=== PATIENT | male | born 1985 | race Caucasian/White ===

== ENCOUNTER → 2016-08-31 | Outpatient (CLI) | payer BC ==
[2016-08-31 14:30] VITALS: BP 155/51; PULSE 77; RESP 16; TEMP 98.7; BMI 52.0
--- NOTE | 2016-09-23 19:33 | P.PN ---
Progress Note - Text DATE OF SERVICE: 08/31/2016 CHIEF COMPLAINT: Followup gastric bypass. HISTORY OF PRESENT ILLNESS: Esequiel Mccray is a 31-year-old gentleman who is status post Chris-en-Y gastric bypass on 04/11/2016. He is more than 4 months out from this procedure. At his height of 5 foot 8, his ideal body weight is 163 pounds. His highest weight was 440 pounds. Today he comes in weighing 341 pounds. He has lost 107 pounds. Present excess weight loss is 37%. Body mass index is reduced from 68.3 down to 52. Total BMI point reduction is 16.2. Since his last visit, he has loss another 47 pounds. He comes in today complaining of eating too much and has been vomiting. He has developed lactose intolerance and as a result, has minimized his drinking of milk. He reports low energy, he is not sleeping. Separately, he has been trying dried chicken which is not according to the bariatric diet. He has difficulty with other chicken as well. He also reports troubles with textured foods. He has already started to smoke as he was strictly forewarned against. He reports that with his weight loss, his joints are improved. Overall, he comes in with concerns as he has "fallen" off the wagon for his bariatric education. PAST MEDICAL HISTORY: 1. Morbid obesity. 2. Hyperlipidemia. 3. Bilateral lower extremity edema. 4. Hypertension. 5. Gastroesophageal reflux disease. 6. Obstructive sleep apnea. 7. Chronic iron deficiency anemia. PAST SURGICAL HISTORY: 1. Tonsillectomy. 2. Adenoidectomy. 3. Upper endoscopy. 4. Status post Chris-en-Y gastric bypass. MEDICATIONS: 1. Omeprazole. 2. Antivert. 3. Zestoretic. 4. Ventolin nebulizer inhaler. ALLERGIES: Denies. SOCIAL HISTORY: Active tobacco user. Denies any moderate alcohol use. FAMILY HISTORY: Pertinent for atrial fibrillation including stroke. Also has diabetes, pulmonary embolism and morbid obesity in his family. He has Crohn's disease in his aunt and irritable bowel syndrome in his mother. REVIEW OF SYSTEMS: CONSTITUTIONAL: Highest personal weight of 450 pounds. He is maintaining at least 107 pound weight loss. Percent excess weight loss 37%. Body mass reduced from 68.3 down to 52. BMI point reduction is 16.2. He is still 178 pounds overweight. GASTROINTESTINAL: Reports dysphagia to solid and textured foods. RESPIRATORY: Has moderate obstructive sleep apnea, including confirms generalized fatigue. HEMATOLOGIC: He has previous history of iron-deficiency anemia. No recent history of easy bruising or bleeding. Osteoarthritis moderate improvement of his joint pain, including bilateral knees and hips and lower back. HEMATOLOGIC: History of anemia. He also has history of DVTs. HEENT: No troubles with vision, hearing. Denies dysphagia. ENDOCRINE: No reports of active diabetes, thyroid disorder. CARDIOVASCULAR: No reports of recent chest pain or heart attack. He is on anti-hypertensive medication. He does have dyslipidemia. NEURO: No reports of stroke or seizure disorder. PSYCH: No reports of depression or suicidal ideation. MUSCULOSKELETAL: Reports diffuse joint pain including back pain and knee pain secondary to morbid obesity. PHYSICAL EXAM: VITAL SIGNS: 98.7, 77, 16, 155/51, 5 foot 8, 341 pounds. Body mass index of 52. ABDOMEN: Soft. No palpable incisional hernias, nontender. GENERAL: Well-developed male in no acute distress. HEENT: No sclerae icterus. Extraocular movements grossly intact. Moist buccal mucosa. NECK: Supple without lymphadenopathy. CHEST: Nonlabored respirations with equal bilateral excursions. CARDIOVASCULAR: Regular rate and rhythm. MUSCULOSKELETAL: No clubbing, cyanosis. NEURO: Cranial nerves 2 through 12 grossly within normal limits. No focal or lateralizing signs. PSYCH: Appropriate affect. Alert and oriented to person, place and time. LABS: Pending. ASSESSMENT: 1. Morbid obesity due to excess calories. 2. Body mass index reduced from 68.3 down to 52. 3. Hypertension without cardiomyopathy. 4. Tobacco use. 5. Status post massive weight loss of 107 pounds. 6. Gastroesophageal reflux disease. 7. Diaphragmatic hiatal hernia. 8. Erosive esophagitis. 9. Moderate to severe obstructive sleep apnea. 10. Hypertriglyceridemia. 11. Familial history of inflammatory bowel disease. 12. Personal history of splenomegaly. 13. Obstructive sleep apnea, poorly controlled. 14. Vitamin D deficiency. 15. Iron deficiency anemia. 16. Dyslipidemia. 17. Dietary surveillance and counseling. 18. Fatty liver disease. 19. Osteoarthritis bilateral knees, improved. 20. Osteoarthritis bilateral hips, improved. 21. Bariatric noncompliance following surgical procedure. 22. Dysphagia to textured foods. PLAN: 1. With his generalized fatigue, this may warrant evaluation for vitamin deficiencies. Recommend a bariatric metabolic panel. 2. He does have history of severe obstructive sleep apnea and he has not been compliant with care. Also recommend further evaluation with a CPAP machine. 3. I have gone over with him his troubles with textured foods and may be consistent with a stricture of his anastomosis. Recommend upper endoscopy with balloon dilatation for treatment. 4. He comes in with concerns of noncompliance with his bariartric care; however, we have encouraged him to follow up so we may help him to achieve his weight loss goals. 5. Recommend followup in approximately 3 to 4 weeks. ADDENDUM: Bariatric metabolic panel reviewed demonstrating white count elevated at 10.9. Neutrophil count elevated at 11.9. Hemoglobin was normal at 14.9. Iron was low normal at 49. Total iron-binding capacity is low at 180. Prealbumin is low at 16. LDL elevated at 111. HDL is low at 31. Vitamin A is low at 28. Thiamine is low at 34. Vitamin D is low at 20. Trace elements were within normal limits. His vitamin deficiencies include vitamin A, thiamine, including vitamin D deficiency would also affect his generalized fatigue. Recommend vitamin A supplement of at least 8000 units. Additionally, his prealbumin is low consistent with low protein and nutritional intake. Would also recommend further evaluation for CPAP treatment.
== END | disposition home or self-care (01) ==
LOC: BARWHC3 13:46
PROVIDERS: ATTEND Surgery Plastic and Reconstructive Surgery
DX: Z48.815 Encounter for surgical aftercare following surgery on the digestive system (principal); E66.01 Morbid (severe) obesity due to excess calories; E89.1 Postprocedural hypoinsulinemia; D50.8 Other iron deficiency anemias; K90.89 Other intestinal malabsorption; E44.0 Moderate protein-calorie malnutrition; E55.9 Vitamin D deficiency, unspecified; K74.1 Hepatic sclerosis; N19 Unspecified kidney failure; K50.90 Crohn's disease, unspecified, without complications; E78.5 Hyperlipidemia, unspecified; I10 Essential (primary) hypertension; K21.9 Gastro-esophageal reflux disease without esophagitis; K44.9 Diaphragmatic hernia without obstruction or gangrene; K22.10 Ulcer of esophagus without bleeding; G47.33 Obstructive sleep apnea (adult) (pediatric); E73.9 Lactose intolerance, unspecified; E78.1 Pure hyperglyceridemia; R16.1 Splenomegaly, not elsewhere classified; D50.9 Iron deficiency anemia, unspecified; Z71.3 Dietary counseling and surveillance; K76.0 Fatty (change of) liver, not elsewhere classified; R13.10 Dysphagia, unspecified; E50.9 Vitamin A deficiency, unspecified; E51.9 Thiamine deficiency, unspecified; R53.83 Other fatigue; R77.0 Abnormality of albumin; Z72.0 Tobacco use; Z98.84 Bariatric surgery status; Z68.43 Body mass index [BMI] 50.0-59.9, adult; Z91.19 Patient's noncompliance with other medical treatment and regimen; Z79.899 Other long term (current) drug therapy
CPT/HCPCS: 97803; 99211

== ENCOUNTER → 2016-09-05 | Outpatient (CLI) | payer BC ==
[2016-09-05 18:04] LABS: INR 1.2 (<1.1); Partial Thromboplastin Time 23.9 sec (22.0-30.0); Prothrombin Time 11.5 sec (9.0-12.0)
[2016-09-05 18:22] LABS: ALT 51 U/L (21-72); AST 31 U/L (17-59); Alkaline Phosphatase 83 U/L (38-126); Anion Gap 10 mmol/L; Blood Urea Nitrogen 9 mg/dL (9-20); Carbon Dioxide 26 mmol/L (22-30); Chloride 104 mmol/L (98-107); Cholesterol 164 mg/dL (<200); Glucose 96 mg/dL (74-99); HDL Cholesterol 31 mg/dL (40-60); Iron 49 ug/dL (49-181); Non-African American GFR(MDRD) >60 (>60 ml/min/1.73 sqM); Phosphorous 3.3 mg/dL (2.5-4.5); Potassium 3.8 mmol/L (3.5-5.1); Sodium 140 mmol/L (137-145); Total Bilirubin 0.7 mg/dL (0.2-1.3); Triglycerides 111 mg/dL (<150)
[2016-09-05 18:33] LABS: % Iron Saturation 27.2 % (20-50); Prealbumin 16 mg/dL (18-36); Total Iron Binding Capacity 180 ug/dL (261-462)
[2016-09-05 18:59] LABS: CH 30.3; CHCM 33.2; HDW 2.62; HGB 14.9 gm/dL (13.0-17.5); MCH 31.7 pg (25.0-35.0); MCHC 34.6 g/dL (31.0-37.0); MCV 91.7 fL (80.0-100.0); Mean Platelet Volume 8.1; RBC 4.69 m/uL (4.30-5.90); RDW 14.4 % (11.5-15.5); WBC 10.9 k/uL (3.8-10.6)
[2016-09-05 19:41] LABS: Vitamin B12 289 pg/mL (239-931)
[2016-09-06 00:49] LABS: Hemoglobin A1C 5.2 % (4.2-6.1)
[2016-09-07 18:43] LABS: Selenium 145 mcg/L (63-160)
== END | disposition home or self-care (01) ==
LOC: LABWHC1 17:24
PROVIDERS: ATTEND Surgery Plastic and Reconstructive Surgery
DX: N19 Unspecified kidney failure (principal); E89.1 Postprocedural hypoinsulinemia; K90.89 Other intestinal malabsorption; D50.8 Other iron deficiency anemias; E55.9 Vitamin D deficiency, unspecified; K50.90 Crohn's disease, unspecified, without complications; K76.9 Liver disease, unspecified; E66.01 Morbid (severe) obesity due to excess calories
CPT/HCPCS: 36415; 80053; 80061; 82306; 82525; 82607; 82728; 82746; 83036; 83540; 83550; 83735; 83970; 84100; 84134; 84255; 84425; 84443; 84590; 84630; 85027; 85610; 85730

== ENCOUNTER 2016-11-12 17:55 | Inpatient (IN) | payer BC ==
[2016-11-12] MEDS ORDERED: SODIUM CHLORIDE 0.9% 1,000 ML IV STA (18:23)
[2016-11-12] MEDS ORDERED: ONDANSETRON 4 MG/2 ML VIAL IVP STA (18:43)
[2016-11-12] MEDS ORDERED: MORPHINE SULFATE 10 MG/ML SYRINGE IVP STA (18:43)
--- NOTE | 2016-11-12 18:49 | ED ---
Abdominal Pain HPI - General Chief Complaint: Abdominal Pain Stated Complaint: chest and back discomfort Time Seen by Provider: 11/12/16 18:08 Source: patient, RN notes reviewed Mode of arrival: ambulatory Limitations: no limitations - History of Present Illness Initial Comments: Patient is a 31-year-old male presents to the emergency room for evaluation of abdominal pain and chest pain. Patient states this morning he woke up with upper epigastric pain has not subsided. Patient states that he had a hot dog earlier today that worsened and his pain has now traveled into his chest. Patient states he is having chest pain that is radiating into his back. Patient does state he had a Chris-en-Y procedure done in [place] [address] Be. Patient states he is having 8 out of 10 midsternal pain. Patient denies shortness of breath. Patient denies any personal cardiac history. Patient states also been very nauseous and vomited once earlier today. Patient denies any other surgeries on his abdomen. Patient states he was breaking out in cold sweats earlier. Patient does state she takes blood pressure medications. Patient states he hasn't taken his blood pressure medication in a few weeks. Patient denies cough or wheezing. Patient does state he smokes socially and drinks socially. Patient denies illicit drug use. Patient denies headache or dizziness. Patient denies parasthesias. Patient denies any other symptoms or complaints. - Related Data Home Medications Medication Instructions Recorded Confirmed Lisinopril-Hctz 20-12.5 mg 1 tab PO BID 07/15/15 11/12/16 [Zestoretic 20-12.5] Multivitamin with Iron 1 tab PO DAILY 11/12/16 11/12/16 [Multivitamins with Iron] Previous Rx's Medication Instructions Recorded Omeprazole 40 mg PO DAILY #90 capsule. 04/12/16 Meclizine [Antivert] 25 mg PO BID #60 tab 05/25/16 Allergies Allergy/AdvReac Type Severity Reaction Status Date / Time No Known Allergies Allergy Verified 11/12/16 18:35 Review of Systems ROS Statement: Those systems with pertinent positive or pertinent negative responses have been documented in the HPI. ROS Other: All systems not noted in ROS Statement are negative. Past Medical History Past Medical History: Asthma, GERD/Reflux, Hypertension Additional Past Medical History / Comment(s): vit d definency History of Any Multi-Drug Resistant Organisms: None Reported Past Surgical History: Adenoidectomy, Bariatric Surgery, Tonsillectomy Additional Past Surgical History / Comment(s): 04-11-16 CHRIS EN Y Past Anesthesia/Blood Transfusion Reactions: Motion Sickness Past Psychological History: No Psychological Hx Reported Smoking Status: Current some day smoker Past Alcohol Use History: Occasional Past Drug Use History: None Reported - Past Family History Father Family Medical History: AFIB, CVA/TIA, Diabetes Mellitus, Pulmonary Embolus Additional Family Medical History / Comment(s): at 57 from pulmonary embolism Mother Family Medical History: Hypertension Additional Family Medical History / Comment(s): anxiety, depression General Exam - General Exam Comments Initial Comments: Sitting in exam room, no acute distress. Limitations: no limitations General appearance: alert, in no apparent distress Head exam: Present: atraumatic, normocephalic, normal inspection Eye exam: Present: normal appearance ENT exam: Present: normal exam Neck exam: Present: normal inspection Respiratory exam: Present: normal lung sounds bilaterally. Absent: respiratory distress Cardiovascular Exam: Present: regular rate, normal rhythm, normal heart sounds GI/Abdominal exam: Present: soft, tenderness (upper mid-epigastric), normal bowel sounds. Absent: distended, guarding, rebound, rigid Extremities exam: Present: normal inspection Back exam: Present: normal inspection Neurological exam: Present: alert, oriented X3, CN II-XII intact, normal gait Psychiatric exam: Present: normal affect, normal mood Skin exam: Present: warm, dry, intact, normal color. Absent: rash Course Vital Signs 11/12/16 11/12/16 11/12/16 18:03 18:39 19:03 Temperature 98.1 F 98.0 F Pulse Rate 75 74 62 Respiratory 20 16 16 Rate Blood Pressure 185/92 150/79 149/76 O2 Sat by Pulse 98 98 96 Oximetry 11/12/16 11/12/16 19:45 21:15 Temperature Pulse Rate 48 L 50 L Respiratory 18 16 Rate Blood Pressure 120/56 123/59 O2 Sat by Pulse 97 99 Oximetry Medical Decision Making - Medical Decision Making Patient is a 31-year-old male presents emergency room for evaluation of epigastric pain and chest pain. All labs including cardiac enzymes within normal limits. CT abdomen/pelvis ordered and no acute findings noted. Patient is still complaining of chest pain. Patient is noted to be bradycardic. Heart rate ranging around 47-50 bpm. This most likely from the morphine given to patient. Because of the patient's heart rate and continuing chest pain will keep patient here for observation to reevaluate cardiac enzymes. Case discussed with Dr. Fajardo. Case also discussed with Michela Miller NP who agreed to admit patient for Dr. Rowe. - Lab Data Result diagrams: 11/12/16 18:37 11/12/16 18:37 Lab Results 11/12/16 11/12/16 11/12/16 Range/Units 18:37 18:37 18:37 WBC 10.1 (3.8-10.6) k/uL RBC 5.09 (4.30-5.90) m/uL Hgb 15.9 (13.0-17.5) gm/dL Hct 47.6 (39.0-53.0) % MCV 93.6 (80.0-100.0) fL MCH 31.3 (25.0-35.0) pg MCHC 33.4 (31.0-37.0) g/dL RDW 13.5 (11.5-15.5) % Plt Count 261 (150-450) k/uL Neutrophils % 61 % Lymphocytes % 26 % Monocytes % 5 % Eosinophils % 7 % Basophils % 1 % Neutrophils # 6.1 (1.3-7.7) k/uL Lymphocytes # 2.7 (1.0-4.8) k/uL Monocytes # 0.5 (0-1.0) k/uL Eosinophils # 0.7 (0-0.7) k/uL Basophils # 0.1 (0-0.2) k/uL PT (9.0-12.0) sec INR (<1.1) APTT (22.0-30.0) sec Sodium 144 (137-145) mmol/L Potassium 4.1 (3.5-5.1) mmol/L Chloride 107 (98-107) mmol/L Carbon Dioxide 25 (22-30) mmol/L Anion Gap 12 mmol/L BUN 10 (9-20) mg/dL Creatinine 0.68 (0.66-1.25) mg/dL Est GFR (MDRD) Af Amer >60 (>60 ml/min/1.73 sqM) Est GFR (MDRD) Non-Af >60 (>60 ml/min/1.73 sqM) Glucose 83 (74-99) mg/dL Calcium 9.5 (8.4-10.2) mg/dL Magnesium 2.1 (1.6-2.3) mg/dL Total Bilirubin 0.7 (0.2-1.3) mg/dL AST 22 (17-59) U/L ALT 45 (21-72) U/L Alkaline Phosphatase 87 (38-126) U/L Total Creatine Kinase 85 (55-170) U/L CK-MB (CK-2) 0.6 (0.0-2.4) ng/mL CK-MB (CK-2) Rel Index 0.7 Troponin I <0.012 (0.000-0.034) ng/mL Total Protein 7.0 (6.3-8.2) g/dL Albumin 4.1 (3.5-5.0) g/dL Amylase 35 (30-110) U/L Lipase 48 (23-300) U/L Urine Color Urine Appearance (Clear) Urine pH (5.0-8.0) Ur Specific [place] (1.001-1.035) Urine Protein (Negative) Urine Glucose (UA) (Negative) Urine Ketones (Negative) Urine Blood (Negative) Urine Nitrite (Negative) Urine Bilirubin (Negative) Urine Urobilinogen (<2.0) mg/dL Ur Leukocyte Esterase (Negative) 11/12/16 11/12/16 Range/Units 18:37 18:37 WBC (3.8-10.6) k/uL RBC (4.30-5.90) m/uL Hgb (13.0-17.5) gm/dL Hct (39.0-53.0) % MCV (80.0-100.0) fL MCH (25.0-35.0) pg MCHC (31.0-37.0) g/dL RDW (11.5-15.5) % Plt Count (150-450) k/uL Neutrophils % % Lymphocytes % % Monocytes % % Eosinophils % % Basophils % % Neutrophils # (1.3-7.7) k/uL Lymphocytes # (1.0-4.8) k/uL Monocytes # (0-1.0) k/uL Eosinophils # (0-0.7) k/uL Basophils # (0-0.2) k/uL PT 11.3 (9.0-12.0) sec INR 1.1 (<1.1) APTT 24.1 (22.0-30.0) sec Sodium (137-145) mmol/L Potassium (3.5-5.1) mmol/L Chloride (98-107) mmol/L Carbon Dioxide (22-30) mmol/L Anion Gap mmol/L BUN (9-20) mg/dL Creatinine (0.66-1.25) mg/dL Est GFR (MDRD) Af Amer (>60 ml/min/1.73 sqM) Est GFR (MDRD) Non-Af (>60 ml/min/1.73 sqM) Glucose (74-99) mg/dL Calcium (8.4-10.2) mg/dL Magnesium (1.6-2.3) mg/dL Total Bilirubin (0.2-1.3) mg/dL AST (17-59) U/L ALT (21-72) U/L Alkaline Phosphatase (38-126) U/L Total Creatine Kinase (55-170) U/L CK-MB (CK-2) (0.0-2.4) ng/mL CK-MB (CK-2) Rel Index Troponin I (0.000-0.034) ng/mL Total Protein (6.3-8.2) g/dL Albumin (3.5-5.0) g/dL Amylase (30-110) U/L Lipase (23-300) U/L Urine Color Yellow Urine Appearance Clear (Clear) Urine pH 5.5 (5.0-8.0) Ur Specific [place] 1.018 (1.001-1.035) Urine Protein Negative (Negative) Urine Glucose (UA) Negative (Negative) Urine Ketones Negative (Negative) Urine Blood Negative (Negative) Urine Nitrite Negative (Negative) Urine Bilirubin Negative (Negative) Urine Urobilinogen 4.0 (<2.0) mg/dL Ur Leukocyte Esterase Negative (Negative) 11/12/16 21:43 Normal sinus rhythm, ventricular rate 65 bpm, WA interval 168 ms, QRS duration 110 ms, QT/QTC 392/407 ms - Radiology Data Radiology results: report reviewed, image reviewed Disposition Clinical Impression: Atypical chest pain, Bradycardia Disposition: ADMITTED IP TO THIS [facility] Condition: Stable Decision Date: 11/12/16
[2016-11-12 18:52] LABS: Basophils # (A) 0.1 k/uL (0-0.2); Basophils % (A) 1 %; CH 31.7; Eosinophils # (A) 0.7 k/uL (0-0.7); Eosinophils % (A) 7 %; HCT 47.6 % (39.0-53.0); HDW 2.46; HGB 15.9 gm/dL (13.0-17.5); Luc # (Auto) 0.13; Luc % (Auto) 1; Lymphocytes # (A) 2.7 k/uL (1.0-4.8); Lymphocytes % (A) 26 %; MCH 31.3 pg (25.0-35.0); MCHC 33.4 g/dL (31.0-37.0); MCV 93.6 fL (80.0-100.0); Mean Platelet Volume 8.5; Monocytes # (A) 0.5 k/uL (0-1.0); Monocytes % (A) 5 %; Neutrophils # (A) 6.1 k/uL (1.3-7.7); Neutrophils % (A) 61 %; RBC 5.09 m/uL (4.30-5.90); RDW 13.5 % (11.5-15.5); WBC 10.1 k/uL (3.8-10.6); WBC (Perox) 10.01
[2016-11-12 18:57] LABS: Appearance,Urine Clear (Clear); Bilirubin,Urine Negative (Negative); Glucose,Urine (UA) Negative (Negative); Ketones,Urine Negative (Negative); Leukocyte Esterase,Urine Negative (Negative); Nitrite,Urine Negative (Negative); PH, Urine 5.5 (5.0-8.0); Protein,Urine Negative (Negative); Specific Gravity,Urine 1.018 (1.001-1.035); UA Billing (MACRO vs. MICRO) CHEM
[2016-11-12 19:05] LABS: ALT 45 U/L (21-72); AST 22 U/L (17-59); Alkaline Phosphatase 87 U/L (38-126); Amylase 35 U/L (30-110); Anion Gap 12 mmol/L; Blood Urea Nitrogen 10 mg/dL (9-20); Calcium 9.5 mg/dL (8.4-10.2); Carbon Dioxide 25 mmol/L (22-30); Chloride 107 mmol/L (98-107); Glucose 83 mg/dL (74-99); Magnesium 2.1 mg/dL (1.6-2.3); Non-African American GFR(MDRD) >60 (>60 ml/min/1.73 sqM); Potassium 4.1 mmol/L (3.5-5.1); Sodium 144 mmol/L (137-145); Total Bilirubin 0.7 mg/dL (0.2-1.3)
[2016-11-12 19:13] LABS: Creatine Kinase 85 U/L (55-170)
[2016-11-12 19:14] LABS: INR 1.1 (<1.1); Partial Thromboplastin Time 24.1 sec (22.0-30.0); Prothrombin Time 11.3 sec (9.0-12.0)
[2016-11-12 19:26] LABS: Creatine Kinase MB 0.6 ng/mL (0.0-2.4); Troponin I <0.012 ng/mL (0.000-0.034)
--- NOTE | 2016-11-12 19:27 | XR ---
EXAMINATION TYPE: XR abdomen acute w cxr DATE OF EXAM: 11/12/2016 COMPARISON: 02/23/2014 HISTORY: Abdominal pain TECHNIQUE: 5 views FINDINGS: Lungs are clear. There is no heart failure. Bowel gas pattern is normal. There is no sign of intestin al obstruction or pneumoperitoneum. Fecal pattern is normal. There is no sign of a mass. There are no pathologic calcifications over the kidneys. IMPRESSION: Normal chest. Nonacute abdomen. Previous left side abdominal surgery noted.
[2016-11-12] MEDS ORDERED: RX INFO: IV CONTRAST WAS GIVEN 1 EACH MISC MISCELLANE PRN (19:48)
[2016-11-12] MEDS ORDERED: FAMOTIDINE 20 MG/2 ML VIAL IV STA (19:51)
--- NOTE | 2016-11-12 20:31 | CT ---
EXAMINATION TYPE: CT abdomen pelvis w con DATE OF EXAM: 11/12/2016 COMPARISON: 07/16/2015 HISTORY: Patient complains of epigastric pain. Patient had rouen-y surgery in March 2016. CT DLP: 2265.3 mGycm Automated exposure control for dose reduction was used. TECHNIQUE: Helical acquisition of images was performed from the lung bases through the pelvis. CONTRAST: Performed without Oral Contrast and with IV Contrast, patient injected with 100 mL of Omnipaque 300. FINDINGS: Lung bases are clear. There is no pleural effusion. Liver shows no focal defect. Bile ducts are not d ilated. Gallbladder appears normal. Spleen and pancreas appear normal. There are surgical clips at th e gastric fundus. There is no adrenal mass. Kidneys show satisfactory contrast opacification. There is no hydronephrosi s. There is no ascites. Appendix appears normal. I see no intestinal wall thickening. Bladder distend s smoothly. There is no sign of a pelvic mass. I see no bony destructive process. IMPRESSION: THERE IS GASTRIC AND INTESTINAL SURGERY NOTED THAT IS NEW COMPARED TO OLD CT SCAN. NO SIGN OF ACUTE A BDOMEN AND PELVIS.
[2016-11-12] MEDS ORDERED: NALOXONE 0.4 MG/ML 1 ML VIAL IV PRN (20:58)
[2016-11-12] MEDS ORDERED: HYDROmorphone 1 MG/ML 1 ML SYRINGE IV PRN (20:58)
[2016-11-12] MEDS: SODIUM CHLORIDE 0.9% 1,000 ML IV SCH (21:34)
[2016-11-12 22:39] VITALS: BMI 48.2
[2016-11-12] MEDS ORDERED: HYDROmorphone 1 MG/ML 1 ML SYRINGE IVP PRN (23:37)
[2016-11-12] MEDS: ACETAMINOPHEN TAB 500 MG TAB PO PRN (23:52)
[2016-11-13 00:39] LABS: Creatine Kinase 60 U/L (55-170)
[2016-11-13 00:52] LABS: Creatine Kinase MB 0.5 ng/mL (0.0-2.4); Troponin I <0.012 ng/mL (0.000-0.034)
[2016-11-13 06:39] LABS: Basophils # (A) 0.1 k/uL (0-0.2); Basophils % (A) 1 %; CH 31.6; CHCM 34.1; Eosinophils # (A) 0.6 k/uL (0-0.7); Eosinophils % (A) 7 %; HCT 40.9 % (39.0-53.0); HGB 13.9 gm/dL (13.0-17.5); Luc # (Auto) 0.17; Luc % (Auto) 2; Lymphocytes # (A) 2.8 k/uL (1.0-4.8); Lymphocytes % (A) 33 %; MCH 31.7 pg (25.0-35.0); MCV 93.2 fL (80.0-100.0); Mean Platelet Volume 8.5; Monocytes # (A) 0.5 k/uL (0-1.0); Monocytes % (A) 6 %; Neutrophils # (A) 4.3 k/uL (1.3-7.7); Neutrophils % (A) 52 %; RBC 4.38 m/uL (4.30-5.90); RDW 13.4 % (11.5-15.5); WBC 8.3 k/uL (3.8-10.6); WBC (Perox) 8.42
[2016-11-13] MEDS: SODIUM CHLORIDE 0.9% 1,000 ML IV SCH ×2 (06:46→20:07)
[2016-11-13 07:00] LABS: ALT 41 U/L (21-72); AST 21 U/L (17-59); Alkaline Phosphatase 72 U/L (38-126); Anion Gap 8 mmol/L; Blood Urea Nitrogen 10 mg/dL (9-20); Calcium 9.2 mg/dL (8.4-10.2); Carbon Dioxide 22 mmol/L (22-30); Chloride 109 mmol/L (98-107); Glucose 83 mg/dL (74-99); Non-African American GFR(MDRD) >60 (>60 ml/min/1.73 sqM); Sodium 139 mmol/L (137-145); Total Bilirubin 0.8 mg/dL (0.2-1.3); Total Protein 5.9 g/dL (6.3-8.2)
[2016-11-13 07:03] LABS: Creatine Kinase 49 U/L (55-170)
[2016-11-13 07:15] LABS: Creatine Kinase MB 0.4 ng/mL (0.0-2.4); Troponin I <0.012 ng/mL (0.000-0.034)
[2016-11-13] MEDS ORDERED: NON-FORMULARY DRUG (Omeprazole [Omeprazole] 40 MG) PO SCH (09:15)
[2016-11-13] MEDS: ENOXAPARIN 40 MG/0.4 ML SYRINGE SQ SCH (09:31)
[2016-11-13] MEDS: LISINOPRIL-HCTZ 20-12.5 MG 1 EACH TAB PO SCH ×2 (09:31→20:07)
[2016-11-13] MEDS: MECLIZINE 25 MG TAB PO SCH ×2 (09:31→20:07)
[2016-11-13] MEDS: PANTOPRAZOLE 40 MG/10 ML VIAL IV SCH (09:32)
[2016-11-13] MEDS ORDERED: RX INFO: IV CONTRAST WAS GIVEN 1 EACH MISC MISCELLANE PRN (09:54)
--- NOTE | 2016-11-13 10:47 | P.PN ---
Progress Note - Text Patient seen and evaluated. Atypical chest pain may also be secondary to gallstones. Recommend right upper quadrant abdominal ultrasound.
[2016-11-13] MEDS: ACETAMINOPHEN TAB 500 MG TAB PO PRN (12:16)
--- NOTE | 2016-11-13 12:45 | US ---
EXAMINATION TYPE: US gallbladder DATE OF EXAM: 11/13/2016 COMPARISON: NONE CLINICAL HISTORY: gallstones. RUQ pain EXAM MEASUREMENTS: Liver Length: 22.4 cm Gallbladder Wall: 0.3 cm CBD: 0.3m Right Kidney: 12.2 x 4.8 x 5.4 Limited due to bowel gas and body habitus. Pancreas: wnl tail of pancreas obscured by bowel gas. Liver: Increased attenuation Gallbladder: Multiple small echogenic focus noted near neck Evidence for sonographic Negrete's sign: No, but pt stated he had just received pain medication CBD: wnl Right Kidney: wnl IMPRESSION: 1. Cholelithiasis. Early cholecystitis is not excluded.
--- NOTE | 2016-11-13 15:01 | CT ---
EXAMINATION TYPE: CT angio thoracic/abd aorta DATE OF EXAM: 11/13/2016 12:05 PM COMPARISON: NONE HISTORY: Severe back pain, possible dissection CT DLP: 2632.2 mGycm Automated exposure control for dose reduction was used. TECHNIQUE: Performed without and with IV Contrast, patient injected with 100 mL of Omnipaque 350. . FINDINGS: Lung windows appear clear. The ascending thoracic aorta at the main pulmonary artery is 3.1 cm patent main pulmonary bifurcation is 2.8 cm. Following intravenous administration of contrast no aortic dissection is evident. No aneurysmal dilat ation is evident. There is tract through the abdominal course into the iliac vessels which appear nor mal. Iliac internal and external vessels appear normal. Common femoral arteries appear normal. Inferior vena cava without contrast appears unremarkable. Mediastinum appears normal. Fatty infiltration is within the liver. The spleen. This phase of contrast is normal. Kidneys appear normal without masses cysts or hydronephrosis. Postsurgical changes within the bowel are evident. The adrenal glands are normal. Pancreas is unremarkable. Gallbladder may contain contrast. The appendix is not identified. Urinary bladder is normal. IMPRESSION: 1. NO CT EVIDENCE OF ANEURYSM OR DISSECTION THROUGH THE THORACIC OR ABDOMINAL AORTA. ILIAC VESSELS AN D COMMON FEMORAL ARTERIES APPEAR NORMAL.
[2016-11-13] MEDS ORDERED: ceFAZolin 3 GM in SODIUM CHLORIDE 0.9% 100 ML IVPB ONE (15:30)
[2016-11-13] MEDS ORDERED: ACETAMINOPHEN IV (For NPO) 1,000 MG in EMPTY BAG 1 BAG IVPB ONE (16:30)
--- NOTE | 2016-11-13 16:34 | CONS ---
DATE OF CONSULTATION: ATTENDING: Dr. Garrison Mr. 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 He had severe discomfort between the shoulder blade. Because of persistent symptoms he came into the emergency room and subsequently admitted. He was given pain medication and had sinus bradycardia. Patient is reasonably active physically, has lost weight since undergoing gastric bypass and has been more active. His breathing is stable when he is active. He has no significant dizziness or palpitation. He has some peripheral edema at times. No clear PND. No orthopnea. His coronary risk factors are remarkable for smoking about 1/2 pack a day as well history of hypertension. He is nondiabetic. His medications at home included: Lisinopril HCT 20/12.5 mg twice a day, Antivert, multivitamin and omeprazole. REVIEW OF SYSTEMS: RESPIRATORY SYSTEM: He has no recent wheezing. No cough. GI: He has occasional nausea and abdominal discomfort, but otherwise he is feeling well. No diarrhea. SYSTEM: No dysuria or hematuria. NERVOUS SYSTEM: No stroke or seizure. PHYSICAL EXAMINATION: He is a 31-year-old male, alert, oriented in apparent distress. Blood pressure 118/60 with a heart rate in the 40s. HEAD: Normocephalic. EYES: Sclerae anicteric. NECK: Good upstroke. No bruit. No jugular venous distention. LUNGS: Clear to auscultation. HEART: Regular rate and rhythm. S1, S2, no S3, no S4, no murmur or rub. ABDOMEN: Soft, obese, positive bowel sounds. No organomegaly. EXTREMITIES: Chronic discoloration. No significant edema. Lab data revealed BUN and creatinine of 10 and 0.6. Troponin less than 0.012 for 3 samples. AST of 21. Hemoglobin 13.9, white blood cell of 8.3. EKG revealed a sinus mechanism with a rate of 65 with no acute changes. Subsequent EKG revealed sinus bradycardia. Abdominal and pelvis CT revealed no evidence of acute abdomen. IMPRESSION: 1. Chest and back discomfort of unclear etiology. There is no evidence to suggest acute coronary syndrome at this time. The back discomfort is persistent. Patient has a history of hypertension, although does not have any clear evidence to suspected dissection, but because of persistent symptoms will obtain a CT scan of the chest. 2. History of hypertension. 3. Status post gastric bypass surgery with weight loss. 4. Chronic tobacco use. RECOMMENDATIONS: Will obtain a CT scan of the chest with contrast to rule out day aneurysmal dilatation or dissection. In the meantime, will continue present therapy. Will obtain echocardiogram with Doppler and depending his progress, further recommendation will be made. Thank you for this consult. We will follow with you.
--- NOTE | 2016-11-13 17:28 | HP ---
DATE OF ADMISSION: 11/12/2016 PRESENTING COMPLAINT: Epigastric pain. HISTORY OF PRESENTING COMPLAINT: This is a very pleasant 31-year-old patient of Dr. Garrison who had a Chris-en-Y gastric bypass surgery in [address] Be. Patient had lost about 142 pounds. Chronic stable medical conditions include asthma, GERD, hypertension. Patient yesterday had a couple bites of hot dog and developed severe epigastric pain then he developed a pressure across the back of the chest going across the arms and have a bit of a cold sweat. No dizziness, no lightheadedness. Decided to come in for the same. Patient known to be pretty active. No cardiac history as such. No nausea, vomiting. Patient does get some heartburn sometimes. REVIEW OF SYSTEMS: CONSTITUTIONAL: None. HEENT: None. RESPIRATORY: None. CARDIOVASCULAR: None. GASTROINTESTINAL: Heartburn. GENITOURINARY: None. MUSCULOSKELETAL: None. DERMATOLOGIC: None. HEMATOLOGIC: None. LYMPHATIC: None. PSYCHIATRY: None. NEUROLOGICAL: None. PAST HISTORY: Asthma, GERD, hypertension. PAST SURGICAL HISTORY: Adenoidectomy, gastric Chris-en-Y in March 2016. SOCIAL HISTORY: Patient smokes 1/2 pack a day. Works for [employer], . FAMILY HISTORY: Father and 2 brothers all in their 50s from heart disease HOME MEDICATIONS: 1. Omeprazole 40 mg a day. 2. Multivitamin 1 tablet a day. 3. Antivert 05/22 p.o. b.i.d. 4. Zestoretic 17/05.5, 1 tablet b.i.d. ALLERGIES: None. PHYSICAL EXAMINATION: VITAL SIGNS ON PRESENTATION: Temperature 98.1, pulse 75, respiration 20, blood pressure 157/99, pulse ox 98% on room air. GENERAL APPEARANCE: Well built, BMI of 48.1, sitting up, not in distress. EYES: Pupils equal. Conjunctivae normal. HEENT: External appearance of nose and ears normal. Oral cavity normal. NECK: JVD not raised. Mass not palpable. RESPIRATORY: Effort normal. Lungs are clear. CARDIOVASCULAR: First and second sounds normal. No edema. ABDOMEN: Soft, nontender palpable. LYMPHATIC: No lymph node palpable in the neck or axillae. PSYCHIATRY: Alert and oriented x3. Mood and affect normal. NEUROLOGICAL: Pupils equal. Cranial nerves grossly intact. Power and sensation grossly intact. INVESTIGATIONS: White count 9.1, hemoglobin 15.9. Potassium 4.1. BUN and creatinine are normal. Acute abdominal series nil acute reported. CT scan of the abdomen and pelvis nil acute. Ultrasound of the gallbladder, cholelithiasis. ASSESSMENT: 1. Acute epigastric pain followed by a pressure across the chest going over the back, cold sweats. this well may be esophageal spasm. Patient is found to have gallstones on the ultrasound but I am not sure if these symptoms could be from gallstone itself. Patient's liver function tests have been normal. The troponin has been normal. Amylase, lipase normal. 2. Morbid obesity, body mass index of 48.1. 3. Chris-en-Y gastric bypass surgery in March 2016. Patient lost 142 pounds since then. 4. Intermittent asthma, stable. 5. Gastroesophageal reflux disease. 6. Essential hypertension. PLAN: From a cardiac standpoint, this does not sound to be very cardiac, but given a strong family history of father and 2 uncles dying, patient needs an outpatient stress test. Dr. Be from general surgery is evaluating the patient. Care was discussed with the patient and his mother and . Care was discussed. Will await further input from general surgery and go from there.
--- NOTE | 2016-11-13 18:20 | P.GSCN ---
History of Present Illness Consult date: 11/13/16 Reason for Consult: Abdominal pain Requesting physician: Sebastián Rowe History of present illness: The patient is a 31-year-old gentleman well known to me who comes in after developing atypical chest pain. He reports the pain started primarily along the epigastrium and radiated to the chest after eating a hot dog yesterday. He reports intermittent dysphagia especially to solid foods. Since admission, he reports bradycardia. He reports intermittent indigestion. He has a history of gastric bypass where his highest weight was 448 pounds. Today he comes in 310 pounds. He has lost 138 pounds. Secondary to his history of epigastric abdominal pain and prior history of gastric bypass, Gen. surgery's consulted. Review of Systems CONSTITUTIONAL: Denies any fever or chills. Intentional weight loss of 138 pounds in 8 months. HEENT: Denies any trouble with vision, hearing or nosebleeds. Has difficulty swallowing. LYMPHATIC: The patient denies any lumps and bumps around the neck. ENDOCRINE: Denies any thyroid disorders. Previous blood sugar glucose intolerance resolved. RESPIRATORY: Denies pneumonia. Denies any troubles with breathing or dyspnea on exertion. Past history of sleep apnea. CARDIOVASCULAR: Has chest pain and slow heart rate. No heart attacks. GASTROINTESTINAL: Has heart burn. No constipation or bright red blood per rectum. GENITOURINARY: Denies any blood in urine or increased urinary frequency. MUSCULOSKELETAL: Has back pain, stiffness, joint arthritis. NEUROLOGIC: Denies any numbness or tingling along the distal extremities. No seizure disorders or headaches. PSYCHIATRIC: Denies depression or suidical ideation. HEMATOLOGIC: Denies any abnormal bleeding or bruising. Past Medical History Past Medical History: Asthma, GERD/Reflux, Hypertension Additional Past Medical History / Comment(s): vit d definency History of Any Multi-Drug Resistant Organisms: None Reported Past Surgical History: Adenoidectomy, Bariatric Surgery, Tonsillectomy Additional Past Surgical History / Comment(s): 04-11-16 TRISTIAN EN Y Past Anesthesia/Blood Transfusion Reactions: Motion Sickness Past Psychological History: No Psychological Hx Reported Smoking Status: Current some day smoker Past Alcohol Use History: Occasional Past Drug Use History: None Reported - Past Family History Father Family Medical History: AFIB, CVA/TIA, Diabetes Mellitus, Pulmonary Embolus Additional Family Medical History / Comment(s): at 57 from pulmonary embolism Mother Family Medical History: Hypertension Additional Family Medical History / Comment(s): anxiety, depression Medications and Allergies Home Medications Medication Instructions Recorded Confirmed Type Lisinopril-Hctz 20-12.5 mg 1 tab PO BID 07/15/15 11/12/16 History [Zestoretic 20-12.5] Multivitamin with Iron 1 tab PO DAILY 11/12/16 11/12/16 History [Multivitamins with Iron] Allergies Allergy/AdvReac Type Severity Reaction Status Date / Time No Known Allergies Allergy Verified 11/12/16 18:35 Surgical - Exam Vital Signs Temp Pulse Resp BP Pulse Ox 98.1 F 75 20 185/92 98 11/12/16 18:03 11/12/16 18:03 11/12/16 18:03 11/12/16 18:03 11/12/16 18:03 GENERAL: Well developed and in no acute distress. Pleasant. HEENT: No sclera icterus. Extraocular movements grossly intact. Moist buccal mucosa. Head is atraumatic, normocephalic. Hears conversational speech. No nasal drainage. NECK: Supple without lymphadenopathy. No JV distention. CHEST: Non-labored respirations and equal bilateral excursions. CARDIOVASCULAR: Bradycardic. Palpable 2+ radial pulses. ABDOMEN: Soft. Nondistended. Tender along the epigastrium and right upper quadrant with deep palpation. No peritonitis. MUSCULOSKELETAL: No clubbing, cyanosis or edema. NEUROLOGIC: No focal or lateralizing signs. PSYCH: Appropriate affect. Alert and oriented to person, place and time. Results - Labs 11/13/16 05:57 11/13/16 05:57 Abnormal Lab Results - Last 24 Hours (Table) 11/13/16 11/13/16 Range/Units 05:57 05:57 Chloride 109 H (98-107) mmol/L Total Creatine Kinase 49 L (55-170) U/L Total Protein 5.9 L (6.3-8.2) g/dL Albumin 3.3 L (3.5-5.0) g/dL Diabetes panel 11/12/16 11/13/16 Range/Units 18:37 05:57 Sodium 144 139 (137-145) mmol/L Potassium 4.1 4.0 (3.5-5.1) mmol/L Chloride 107 109 H (98-107) mmol/L Carbon Dioxide 25 22 (22-30) mmol/L BUN 10 10 (9-20) mg/dL Creatinine 0.68 0.66 (0.66-1.25) mg/dL Glucose 83 83 (74-99) mg/dL Calcium 9.5 9.2 (8.4-10.2) mg/dL AST 22 21 (17-59) U/L ALT 45 41 (21-72) U/L Alkaline Phosphatase 87 72 (38-126) U/L Total Protein 7.0 5.9 L (6.3-8.2) g/dL Albumin 4.1 3.3 L (3.5-5.0) g/dL Calcium panel 11/12/16 11/13/16 Range/Units 18:37 05:57 Calcium 9.5 9.2 (8.4-10.2) mg/dL Albumin 4.1 3.3 L (3.5-5.0) g/dL Pituitary panel 11/12/16 11/13/16 Range/Units 18:37 05:57 Sodium 144 139 (137-145) mmol/L Potassium 4.1 4.0 (3.5-5.1) mmol/L Chloride 107 109 H (98-107) mmol/L Carbon Dioxide 25 22 (22-30) mmol/L BUN 10 10 (9-20) mg/dL Creatinine 0.68 0.66 (0.66-1.25) mg/dL Glucose 83 83 (74-99) mg/dL Calcium 9.5 9.2 (8.4-10.2) mg/dL Adrenal panel 11/12/16 11/13/16 Range/Units 18:37 05:57 Sodium 144 139 (137-145) mmol/L Potassium 4.1 4.0 (3.5-5.1) mmol/L Chloride 107 109 H (98-107) mmol/L Carbon Dioxide 25 22 (22-30) mmol/L BUN 10 10 (9-20) mg/dL Creatinine 0.68 0.66 (0.66-1.25) mg/dL Glucose 83 83 (74-99) mg/dL Calcium 9.5 9.2 (8.4-10.2) mg/dL Total Bilirubin 0.7 0.8 (0.2-1.3) mg/dL AST 22 21 (17-59) U/L ALT 45 41 (21-72) U/L Alkaline Phosphatase 87 72 (38-126) U/L Total Protein 7.0 5.9 L (6.3-8.2) g/dL Albumin 4.1 3.3 L (3.5-5.0) g/dL - Imaging CT scan - abdomen: image reviewed CT scan - pelvis: image reviewed (No free air identified.) US - abdomen: image reviewed (Multiple gallstones with thickened gallbladder wall.) Assessment and Plan (1) Dysphagia Status: Acute (2) Multiple gallstones Status: Acute (3) Cholecystitis Status: Acute (4) Atypical chest pain Status: Acute (5) Bradycardia Status: Acute (6) Morbid obesity Status: Acute (7) Hypertension Status: Chronic (8) Vitamin D deficiency Status: Acute (9) Vitamin A deficiency Status: Acute (10) Thiamine deficiency Status: Acute Plan: 1. With his atypical chest pain, other causes include gallstones. He is at high risk with the recent metabolic surgery as well as massive weight loss in a short timeframe. I have ordered his ultrasound of his gallbladder which is now consistent with gallstones. 2. CT of the abdomen pelvis also reviewed demonstrating no overt findings of pneumoperitoneum small bowel obstruction. 3. Follow bariatric diet likely cardiac consistent and no straws is advised. Recommend low-fat diet. 4. For his bradycardia, management per cardiology. 5. He has a personal history of vitamin A including vitamin D and thiamine deficiency. Recommend replacement while inpatient. 6. I have discussed with him surgical intervention with a cholecystectomy preferably robotic-assisted approach. Time with Patient: Greater than 30
[2016-11-13] MEDS: ONDANSETRON 4 MG/2 ML VIAL IVP PRN (20:13)
[2016-11-14] MEDS: SODIUM CHLORIDE 0.9% 1,000 ML IV SCH ×3 (06:34→12:43)
[2016-11-14 06:56] LABS: Anion Gap 7 mmol/L; Blood Urea Nitrogen 8 mg/dL (9-20); Calcium 9.1 mg/dL (8.4-10.2); Carbon Dioxide 27 mmol/L (22-30); Chloride 109 mmol/L (98-107); Glucose 82 mg/dL (74-99); Non-African American GFR(MDRD) >60 (>60 ml/min/1.73 sqM); Potassium 4.5 mmol/L (3.5-5.1); Sodium 143 mmol/L (137-145)
[2016-11-14] MEDS: PANTOPRAZOLE 40 MG/10 ML VIAL IV SCH (07:40)
[2016-11-14] MEDS: LISINOPRIL-HCTZ 20-12.5 MG 1 EACH TAB PO SCH ×2 (07:41→20:44)
[2016-11-14] MEDS: MECLIZINE 25 MG TAB PO SCH ×2 (07:41→20:44)
[2016-11-14] MEDS: ENOXAPARIN 40 MG/0.4 ML SYRINGE SQ SCH (07:41)
[2016-11-14] MEDS: ACETAMINOPHEN TAB 500 MG TAB PO PRN (07:52)
[2016-11-14] MEDS: ONDANSETRON 4 MG/2 ML VIAL IVP PRN ×2 (07:52→16:45)
--- NOTE | 2016-11-14 10:34 | ECHOF ---
Referral Reason: MEASUREMENTS -------- HEIGHT: 170.2 cm WEIGHT: 143.8 kg BP: 115/59 RVIDd: 3.7 cm (< 3.3) IVSd: 1.2 cm (0.6 - 1.1) LVIDd: 5.1 cm (3.9 - 5.3) LVPWd: 1.0 cm (0.6 - 1.1) IVSs: 1.7 cm LVIDs: 3.3 cm LVPWs: 1.7 cm LA Diam: 3.5 cm (2.7 - 3.8) LAESV Index (A-L): 37.39 ml/m Ao Diam: 3.7 cm (2.0 - 3.7) AV Cusp: 2.4 cm (1.5 - 2.6) MV EXCURSION: 16.312 mm (> 18.000) MV EF SLOPE: 95 mm/s (70 - 150) EPSS: 0.5 cm MV E Cody: 1.29 m/s MV DecT: 189 ms MV A Cody: 0.52 m/s MV E/A Ratio: 2.49 RAP: 5.00 mmHg RVSP: 18.36 mmHg FINDINGS -------- Resting bradycardia (HR<60bpm). This was a technically good study. The left ventricular size is normal. There is borderline concentric left ventricular hypertrophy. Overall left ventricular systolic function is normal with, an EF between 55 - 60 %. The right ventricle is mild to moderately enlarged. LA is moderately dilated 34-39 ml/m2 The right atrium is normal in size. The aortic valve is trileaflet and appears structurally normal. The mitral valve is normal. Mild tricuspid regurgitation present. Right ventricular systolic pressure is normal at < 35 mmHg. Trace/mild (physiologic) pulmonic regurgitation. The aortic root is dilated measuring 3.7cm. The inferior vena cava is mildly dilated. The pericardium is normal. CONCLUSIONS -------- 1. Resting bradycardia (HR<60bpm). 2. The mitral valve is normal. 3. Mild tricuspid regurgitation present. 4. Right ventricular systolic pressure is normal at < 35 mmHg. 5. Trace/mild (physiologic) pulmonic regurgitation. 6. The aortic root is dilated measuring 3.7cm. 7. The inferior vena cava is mildly dilated. 8. The pericardium is normal. 9. This was a technically good study. 10. The left ventricular size is normal. 11. There is borderline concentric left ventricular hypertrophy. 12. Overall left ventricular systolic function is normal with, an EF between 55 - 60 %. 13. The right ventricle is mild to moderately enlarged. 14. LA is moderately dilated 34-39 ml/m2 15. The right atrium is normal in size. 16. The aortic valve is trileaflet and appears structurally normal. MOLD WASHER: Rosa Maria Shah RDCS
--- NOTE | 2016-11-14 13:27 | PN ---
Mr. Mccray is a 31-year-old male who presented with chest and back discomfort. He is feeling better at this point. His back discomfort has improved. He has no chest pain. His breathing is stable. He has been ambulating without difficulty. He still has episode of sinus bradycardia, but he does not feel dizzy. He continues to be at this time on Lovenox subcu, lisinopril ( ) 20/12.5 mg twice a day. PHYSICAL EXAMINATION: Blood pressure running in the 130s with the heart rate in the 50s. LUNGS: Clear. HEART: Regular rate and rhythm. S1 and S2, no S3, no rub. ABDOMEN: Soft, nontender. EXTREMITIES: No edema. LAB DATA: His CT scan of the chest revealed no evidence of aneurysm. His BUN and creatinine 8 and 0.7. He has evidence of cholelithiasis. IMPRESSION: 1. Back and chest discomfort. No evidence of cardiac abnormalities. 2. Hypertension. 3. History of morbid obesity, status post gastric bypass. 4. Cholelithiasis. 5. Bradycardia, asymptomatic. RECOMMENDATIONS: From the cardiac standpoint, stable. I see no evidence of any significant abnormality at this time. We will continue clinical observation. Will see him on an as needed basis. Please feel free to call us for any questions.
--- NOTE | 2016-11-14 21:39 | P.PN ---
Progress Note - Text DATE OF SERVICE: 11/14/2016 PRESENTING COMPLAINT: Epigastric pain INTERVAL HISTORY: Admitted with epigastric pain, found to have gallstones. Patient was to have a cholecystectomy with Dr. Shah however unable to complete said surgery, moved to tomorrow. Patient sitting up in bed, looks comfortable, complains of mild pain to the right upper quadrant and epigastric area. Patient's heart rate was found to be in the 40s to 50s. Echocardiogram was done today to evaluate. Friends visiting at the bedside REVIEW OF SYSTEMS: Done for constitutional ,cardiovascular, GI, pulmonary with relevant findings as above. CURRENT MEDICATIONS Lovenox, Zestoretic, Dilaudid, Antivert, Protonix. PHYSICAL EXAM VITAL SIGNS: Temperature 97.5, pulse 42, respiratory rate 16, blood pressure 119/61, oxygen saturation 96% on room air. GENERAL APPEARANCE: Lying in bed, not in distress. EYES: Pupils equal. Conjunctiva normal. NECK: JVD not raised. Mass not palpable. RESPIRATORY: Respiratory effort normal. Lungs clear to auscultation. CARDIOVASCULAR: First and second sounds normal. No edema. ABDOMEN: Soft. Liver and spleen not palpable. No tenderness. No mass palpable. PSYCHIATRY: Alert and oriented x3. Mood and affect normal. INVESTIGATIONS: Free T4 0.93, TSH 3.920, all of the labs otherwise unremarkable Echocardiogram: Resting bradycardia, EF of 55-60%. ASSESSMENT: Acute epigastric pain followed by pressure across the chest and back, cold sweats possibly esophageal spasm. Acute cholecystitis secondary to gallstones, surgery tomorrow Morbid obesity, body mass index of 48.1. Chris-en-Y gastric bypass surgery in March 2016. Patient lost 142 pounds since then. Intermittent asthma, stable. Gastroesophageal reflux disease. Essential hypertension. PLAN: Patient to the OR tomorrow for a laparoscopic cholecystectomy. Patient has bradycardia with no symptoms, cardiology on consult and they find no abnormality. Okay for him to go to surgery. We'll continue to monitor. MOTOR[employer]AT MECH[employer]IC INBOARD statement: Patient was seen and examined by nurse practitioner Michela Miller and all elements of the case discussed with attending Dr. Rowe
[2016-11-14] MEDS: HYDROmorphone 1 MG/ML 1 ML SYRINGE IVP PRN (23:59)
[2016-11-15] MEDS: DEXAMETHASONE SOD PHOSPHATE 4 MG/ML 1 ML VIAL IV PRN ×3 (02:03→21:44)
[2016-11-15] MEDS: HYDROmorphone 1 MG/ML 1 ML SYRINGE IVP PRN ×3 (07:14→13:06)
--- NOTE | 2016-11-15 07:48 | P.PN ---
Progress Note - Text Patient seen and evaluated. Reports increased epigastric abdominal pain. Findings consistent with cholecystitis. Operative room delay explained to patient. We'll proceed with robotic-assisted laparoscopic cholecystectomy.
--- NOTE | 2016-11-15 07:50 | P.HPADDEND ---
H&P Addendum H&P Addendum Date: 11/15/16 Patient seen and evaluated. Patient with cholecystitis. He has completed cardiac risk assessment. We'll proceed with robotic-assisted laparoscopic cholecystectomy.
[2016-11-15 08:08] LABS: Basophils % (A) 0 %; CH 31.8; CHCM 33.9; Eosinophils # (A) 0.1 k/uL (0-0.7); Eosinophils % (A) 1 %; HCT 44.3 % (39.0-53.0); HDW 2.57; HGB 14.6 gm/dL (13.0-17.5); Luc # (Auto) 0.08; Luc % (Auto) 1; Lymphocytes # (A) 1.1 k/uL (1.0-4.8); Lymphocytes % (A) 11 %; MCHC 32.9 g/dL (31.0-37.0); MCV 94.3 fL (80.0-100.0); Mean Platelet Volume 8.6; Monocytes # (A) 0.2 k/uL (0-1.0); Monocytes % (A) 2 %; Neutrophils # (A) 7.9 k/uL (1.3-7.7); Neutrophils % (A) 85 %; WBC 9.3 k/uL (3.8-10.6); WBC (Perox) 9.71
[2016-11-15 08:35] LABS: Anion Gap 11 mmol/L; Blood Urea Nitrogen 8 mg/dL (9-20); Calcium 9.3 mg/dL (8.4-10.2); Carbon Dioxide 24 mmol/L (22-30); Chloride 105 mmol/L (98-107); Glucose 106 mg/dL (74-99); Non-African American GFR(MDRD) >60 (>60 ml/min/1.73 sqM); Potassium 4.4 mmol/L (3.5-5.1); Sodium 140 mmol/L (137-145)
[2016-11-15] MEDS: PANTOPRAZOLE 40 MG/10 ML VIAL IV SCH (08:56)
[2016-11-15] MEDS: MECLIZINE 25 MG TAB PO SCH ×2 (08:56→21:43)
[2016-11-15] MEDS: ENOXAPARIN 40 MG/0.4 ML SYRINGE SQ SCH ×3 (08:56→16:46)
[2016-11-15] MEDS: LISINOPRIL-HCTZ 20-12.5 MG 1 EACH TAB PO SCH ×2 (08:56→21:43)
--- NOTE | 2016-11-15 09:44 | PN ---
DATE OF SERVICE: 11/14/2016 ATTENDING NOTE: This patient was seen and examined by me on 11/14/2016. I reviewed the note of my nurse practitioner, Ms. Miller and discussed, reviewed additional findings as below. Patient admitted with epigastric and chest pain. Chest pain felt to be really noncardiac. Also has got gallstones, which is felt to be manifesting some of the symptoms. The patient is scheduled for surgery for tomorrow morning. at the bedside. On examination, afebrile, blood pressure 119/61, pulse 42. LUNGS: Clear. CARDIOVASCULAR: First and second sounds are normal. ABDOMEN: Soft. INVESTIGATIONS: Potassium 4.5. ASSESSMENT: 1. Choledocholithiasis, symptomatic. No clinical evidence of cholecystitis at this point. Will hold off any antibiotics. 2. Chris-en-Y gastric bypass surgery. 3. Bradycardia, physiological. PLAN: Care was discussed with the patient and . Patient is stable to proceed. Care was discussed. Questions were answered.
[2016-11-15] MEDS: SODIUM CHLORIDE 0.9% 1,000 ML IV SCH ×2 (10:22→20:10)
[2016-11-15] MEDS ORDERED: ceFAZolin 3 GM in SODIUM CHLORIDE 0.9% 100 ML IVPB ONE (14:55)
[2016-11-15] MEDS ORDERED: ACETAMINOPHEN IV (For NPO) 1,000 MG in EMPTY BAG 1 BAG IVPB ONE (14:55)
[2016-11-15] MEDS ORDERED: IV FLUID CONTINUATION 1,000 ML IV ONE (15:58)
[2016-11-15] MEDS ORDERED: LACTATED RINGERS 1,000 ML IV ONE ×2 (16:29→17:40)
--- NOTE | 2016-11-15 16:33 | P.PN ---
Progress Note - Text DATE OF SERVICE: 11/15/2016 PRESENTING COMPLAINT: Epigastric pain INTERVAL HISTORY: Admitted with epigastric pain, found to have gallstones. Patient scheduled for robotic-assisted cholecystectomy with possible open cholecystectomy with EGD. Patient seen prior to surgery in his room, appears anxious, in pain. Ambulating in the hallway current diet is nothing by mouth. Moved bowels yesterday. REVIEW OF SYSTEMS: Done for constitutional ,cardiovascular, GI, pulmonary with relevant findings as above. CURRENT MEDICATIONS Lovenox, Zestoretic, Dilaudid, Antivert, Protonix. PHYSICAL EXAM VITAL SIGNS: 97.9, pulse 49, respiratory rate 18, blood pressure 133/80, oxygen saturation 96 % on room air. GENERAL APPEARANCE: Sitting up in a chair, anxious appearing. EYES: Pupils equal. Conjunctiva normal. NECK: JVD not raised. Mass not palpable. RESPIRATORY: Respiratory effort normal. Lungs clear to auscultation. CARDIOVASCULAR: First and second sounds normal. No edema. Bradycardic. ABDOMEN: Soft. Liver and spleen not palpable. No tenderness. No mass palpable. PSYCHIATRY: Alert and oriented x3. Mood and affect anxious appearing INVESTIGATIONS: CBC and BMP unremarkable. Accu-Cheks noted. Echocardiogram: Resting bradycardia, EF of 55-60%. ASSESSMENT: Acute epigastric pain followed by pressure across the chest and back, cold sweats possibly esophageal spasm. Bradycardia, physiologic. Acute choledocholithiasis, symptomatic. No clinical evidence of cholecystitis. Morbid obesity, body mass index of 48.1. Chris-en-Y gastric bypass surgery in March 2016. Patient lost 142 pounds since then. Intermittent asthma, stable. Gastroesophageal reflux disease. Essential hypertension. PLAN: Patient to the OR later this afternoon for a laparoscopic cholecystectomy. We' ll continue to monitor. UNDERCOATER statement: Patient was seen and examined by nurse practitioner Michela Miller and all elements of the case discussed with attending Dr. Rowe
[2016-11-15] MEDS ORDERED: ACETAMINOPHEN IV (For NPO) 1,000 MG in EMPTY BAG 1 BAG IVPB NR (16:45)
[2016-11-15] MEDS ORDERED: SUCCINYLCHOLINE CHLORIDE 100 MG/5 ML SYR IV ONE (16:52)
[2016-11-15] MEDS ORDERED: LIDOCAINE 1% INJ 10MG/ML (20 ML MDV) ONE (16:52)
[2016-11-15] MEDS ORDERED: PROPOFOL 10 MG/ML 20 ML VIAL IV ONE (16:52)
[2016-11-15] MEDS ORDERED: NEOSTIGMINE 1 MG/ML 10 ML VIAL ONE (16:52)
[2016-11-15] MEDS ORDERED: hydrALAZINE HCL 20 MG/ML 1 ML VIAL ONE (16:52)
[2016-11-15] MEDS ORDERED: MIDAZOLAM 2 MG/2 ML VIAL ONE (16:52)
[2016-11-15] MEDS ORDERED: ROCURONIUM BROMIDE 10 MG/ML 10 ML VIAL IV ONE (16:52)
[2016-11-15] MEDS ORDERED: GLYCOPYRROLATE 0.2 MG/ML 2 ML VIAL ONE (16:52)
[2016-11-15] MEDS ORDERED: fentaNYL (PF) 50 MCG/ML 2 ML AMP ONE (16:52)
[2016-11-15] MEDS ORDERED: HYDROmorphone (PF) 1 MG/ML ONE (16:52)
[2016-11-15] MEDS ORDERED: IV FLUID CONTINUATION 300 ML IV ONE (16:52)
[2016-11-15] MEDS ORDERED: SODIUM CHLORIDE 0.9% 50 ML with ceFAZolin 3,000 MG IV ONE ×2 (16:59)
[2016-11-15] MEDS ORDERED: BUPIVACAIN-EPI 0.5%-1:200,000 30 ML VIAL SQ ONE (17:36)
--- NOTE | 2016-11-15 18:37 | P.PCN ---
Date of Procedure: 11/15/16 Preoperative Diagnosis: Epigastric abdominal pain, right upper quadrant abdominal pain, gallstones, cholecystitis Postoperative Diagnosis: Same, marginal ulcer due to smoking and gastrojejunal anastomosis, acute cholecystitis Procedure(s) Performed: Robotic-assisted laparoscopic cholecystectomy, intraoperative esophagogastrojejunoscopy Implants: Anesthesia: GETA, local Surgeon: Camila Be Estimated Blood Loss (ml): 5 Pathology: none sent (Gallbladder) Condition: stable Disposition: floor Indications for Procedure: Operative Findings: Acute and chronic ulcer along the gastrojejunal anastomosis approximately 6 mm in size. No bleeding identified. Moderate edema of gallbladder wall consistent with acute cholecystitis secondary to gallstones. Description of Procedure:
[2016-11-15] MEDS ORDERED: HYDROcodone/APAP 5-325MG 1 EACH TAB PO PRN (18:38)
[2016-11-15] MEDS ORDERED: HYDROmorphone 1 MG/ML 1 ML SYRINGE IVP PRN (18:38)
[2016-11-15] MEDS ORDERED: HYDROmorphone 1 MG/ML 1 ML SYRINGE IVP ONE (18:45)
[2016-11-15] MEDS ORDERED: TEMAZEPAM 15 MG CAP PO PRN (19:00)
[2016-11-16] MEDS: SODIUM CHLORIDE 0.9% 1,000 ML IV SCH (06:16)
[2016-11-16 07:27] LABS: Basophils % (A) 0 %; CH 31.8; Eosinophils % (A) 0 %; HCT 43.8 % (39.0-53.0); HDW 2.38; HGB 14.4 gm/dL (13.0-17.5); Luc # (Auto) 0.09; Luc % (Auto) 1; Lymphocytes # (A) 1.5 k/uL (1.0-4.8); Lymphocytes % (A) 10 %; MCV 93.9 fL (80.0-100.0); Mean Platelet Volume 9.4; Monocytes # (A) 0.4 k/uL (0-1.0); Monocytes % (A) 3 %; Neutrophils # (A) 12.3 k/uL (1.3-7.7); Neutrophils % (A) 86 %; RBC 4.66 m/uL (4.30-5.90); RDW 13.5 % (11.5-15.5); WBC 14.3 k/uL (3.8-10.6); WBC (Perox) 13.51
[2016-11-16] MEDS ORDERED: SUCRALFATE 1 GM TAB PO SCH (07:30)
[2016-11-16 07:42] LABS: Anion Gap 8 mmol/L; Blood Urea Nitrogen 7 mg/dL (9-20); Calcium 9.6 mg/dL (8.4-10.2); Carbon Dioxide 26 mmol/L (22-30); Chloride 105 mmol/L (98-107); Glucose 119 mg/dL (74-99); Non-African American GFR(MDRD) >60 (>60 ml/min/1.73 sqM); Sodium 139 mmol/L (137-145)
[2016-11-16] MEDS: PANTOPRAZOLE 40 MG/10 ML VIAL IV SCH (07:58)
[2016-11-16] MEDS: ENOXAPARIN 40 MG/0.4 ML SYRINGE SQ SCH (07:58)
[2016-11-16] MEDS: MECLIZINE 25 MG TAB PO SCH (07:58)
[2016-11-16] MEDS: LISINOPRIL-HCTZ 20-12.5 MG 1 EACH TAB PO SCH (07:59)
[2016-11-16 09:48] VITALS: BP 133/66; PULSE 49; RESP 20; TEMP 98.1
--- NOTE | 2016-11-16 15:00 | P.PN ---
Subjective 31-year-old being seen and examined up ambulating in the [place] passing gas is tolerating a diet was anxious to be discharged no nausea vomiting reports epigastric discomfort resolved Patient is postop on November 15 robotic-assisted laparoscopic cholecystectomy intraoperative esophagogastrojejunoscopy for epigastric abdominal pain right upper quadrant due to acute cholecystitis marginal ulcer noted due to smoking and gastrojejunal anastomosis ,Acute and chronic ulcer along the gastrojejunal anastomosis approximately 6 mm in size. No bleeding identified. Moderate edema of gallbladder wall consistent with acute cholecystitis secondary to gallstones. Patient was started on Carafate and protonix. Patient was tolerating a diet was felt to be medically stable from a surgical perspective could be discharged today Objective - Vital Signs Vital signs: Vital Signs Temp 98.1 F 11/16/16 07:00 Pulse 49 L 11/16/16 07:00 Resp 20 11/16/16 07:00 BP 133/66 11/16/16 07:00 Pulse Ox 96 11/16/16 07:00 Intake & Output 11/15/16 11/16/16 11/16/16 18:59 06:59 18:59 Intake Total 1000 2020 Output Total 5 500 Balance 995 1520 Intake: IV 1000 200 Intake, IV Titration 950 Amount Sodium Chloride 0.9% 1, 950 000 ml @ 100 mls/hr IV . Q10H NYLA Rx#:[id number] Oral 870 Output: Urine 500 Estimated Blood Loss 5 Other: Voiding Method Toilet Toilet # Voids 2 5 - Exam Physical exam 31-year-old male up ambulating in the [place] states abdominal discomfort has improved tolerating diet passing gas rectally Lungs essentially clear adequate air movement on room air Heart S1-S2 audible and regular denying chest pain Abdomen soft surgical sites benign no redness not distended surgical tenderness urinating no difficulty no stool passing gas no nausea vomiting Extremities no edema - Labs CBC & Chem 7: 11/16/16 07:04 11/16/16 07:04 Labs: Abnormal Lab Results - Last 24 Hours (Table) 11/16/16 11/16/16 Range/Units 07:04 07:04 WBC 14.3 H (3.8-10.6) k/uL Neutrophils # 12.3 H (1.3-7.7) k/uL BUN 7 L (9-20) mg/dL Creatinine 0.61 L (0.66-1.25) mg/dL Glucose 119 H (74-99) mg/dL Assessment and Plan Plan: Impression Present on admission epigastric abdominal pain right upper quadrant suspect due to acute cholecystitis Morbid obesity BMI 49 Postop November 15 Robotic-assisted laparoscopic cholecystectomy, intraoperative esophagogastrojejunoscopy Acute and chronic ulcer along the gastrojejunal anastomosis approximately 6 mm in size. No bleeding identified. Moderate edema of gallbladder wall consistent with acute cholecystitis secondary to gallstones. Plan From a surgical perspective patient is felt to be surgically appropriate to be discharged home defer to the timing of the discharge to medicine service Continue with the Carafate 1 g twice a day Continue Prilosec 40 mg daily Continue postop surgical care The above dictated assessment and findings were discussed with dr Be. Impression and the plan of care have been dictated as directed. Annalisa Jade nurse practitioner acting as a scribe for Dr. Be
--- NOTE | 2016-11-16 16:33 | PN ---
DATE OF SERVICE: 11/15/16 ATTENDING NOTE: This patient was seen and examined by me on 11/15/16. I reviewed the note of my nurse practitioner, Ms. Miller. Discussed, reviewed. Additional findings below. Patient presented with chest pain; probably will need outpatient workup. Also found to have symptomatic gallstones; pending surgery. Still having some abdominal pain. Pending surgery. On examination, afebrile. Abdomen is soft, with mild upper abdominal tenderness. No guarding or rigidity. ASSESSMENT: 1. Choledocholithiasis, symptomatic; awaiting surgery. 2. Chris-en-Y gastric bypass surgery, history of. PLAN: Await surgery. Care was discussed with the patient.
--- NOTE | 2016-11-18 15:04 | DS ---
DATE OF ADMISSION: 11/13/2016 DATE OF DISCHARGE: 11/16/2016 FINAL DIAGNOSES: 1. Acute choledocholithiasis, status post laparoscopic cholecystectomy. 2. Acute epigastric pain. 3. Bradycardia, physiologic. 4. Acute choledocholithiasis. 5. Morbid obesity. 6. Chris-en-Y gastric bypass. 7. Intermittent asthma, stable. 8. History of gastroesophageal reflux disease. 9. History of hypertension. DISCHARGE DISPOSITION: The patient will be discharged in stable condition with guarded prognosis. Discharge cleared by Surgery. HISTORY OF PRESENT ILLNESS: This 31-year-old gentleman was admitted with features acute epigastric pain. The patient had features of acute choledocholithiasis. The patient underwent robotic assisted laparoscopic cholecystectomy and intraoperative EGD by Dr. Be. Patient improved significantly. On exam, vitals are stable. CARDIOVASCULAR: S1, S2 ABDOMEN: Soft. NERVOUS SYSTEM: No focal deficits. DISCHARGE ADVICE: 1. Diet is cardiac. 2. Activity limited until follow up. 3. Follow up with Dr. Garrison in 2 to 3 days. 4. Follow with Dr. Be as recommended. Medications will be as follows: 1. Tylenol 650 q.4 p.r.n. 2. Motrin 200 mg q.6. 3. Lisinopril hydrocortisone 20/12.5 p.o. b.i.d. 4. Antivert 25 mg b.i.d. 5. Multivitamins 1 p.o. daily. 6. Prilosec 40 mg daily. 7. Carafate 1 gram a.c. b.i.d. Once again, the patient will be discharged in a stable condition with guarded prognosis.
--- NOTE | 2016-11-28 15:17 | P.PN ---
Subjective Principal diagnosis: Acute cholecystitis The patient is a 31-year-old male who presented initially with atypical chest pain. Diagnostic studies demonstrated gallstones. He reports increased epigastric abdominal pain. His findings are consistent with cholecystitis. His cardiac workup demonstrates no acute cardiac event. Objective - Vital Signs Vital signs: Vital Signs Temp 97.3 F L 11/14/16 22:33 Pulse 45 L 11/15/16 00:00 Resp 16 11/15/16 00:00 BP 139/73 11/14/16 22:33 Pulse Ox 95 11/14/16 22:33 Intake & Output 11/14/16 11/15/16 11/15/16 18:59 06:59 18:59 Intake Total 300 2870 Balance 300 2870 Intake: IV 300 800 Sodium Chloride 0.9% 1, 300 800 000 ml @ 100 mls/hr IV . Q10H NYLA Rx#:[id number] Oral 207 Other: # Voids 1 1 - Exam GENERAL: Well developed and in mild distress. Pleasant. HEENT: No sclera icterus. Extraocular movements grossly intact. Moist buccal mucosa. Head is atraumatic, normocephalic. Hears conversational speech. No nasal drainage. NECK: Supple without lymphadenopathy. No JV distention. CHEST: Non-labored respirations and equal bilateral excursions. CARDIOVASCULAR: Regular rate and rhythm. Palpable 2+ radial pulses. ABDOMEN: Soft, tenderness along the epigastrium including right upper quadrant. No diffuse peritonitis. MUSCULOSKELETAL: No clubbing, cyanosis or edema. NEUROLOGIC: No focal or lateralizing signs. PSYCH: Appropriate affect. Alert and oriented to person, place and time. - Labs CBC & Chem 7: 11/16/16 07:04 11/16/16 07:04 - Imaging and Cardiology US - abdomen: report reviewed, image reviewed Assessment and Plan (1) Dysphagia Status: Acute (2) Multiple gallstones Status: Acute (3) Cholecystitis Status: Acute (4) Atypical chest pain Status: Acute (5) Bradycardia Status: Acute (6) Morbid obesity Status: Acute (7) Hypertension Status: Chronic (8) Vitamin D deficiency Status: Acute (9) Vitamin A deficiency Status: Acute (10) Thiamine deficiency Status: Acute Plan: 1. His cardiac workup was essentially unremarkable for acute event. 2. Recommend proceeding with robotic-assisted laparoscopic cholecystectomy given patient's risk and body habitus. 3. Nothing by mouth after midnight. 4. DVT prophylaxis. 5. Recommend antibiotics in the interim.
--- NOTE | 2016-11-28 15:24 | P.PCN ---
Date of Procedure: 11/15/16 Preoperative Diagnosis: Postoperative Diagnosis: Procedure(s) Performed: Implants: Indications for Procedure: Operative Findings: Description of Procedure: PREOPERATIVE DIAGNOSES: 1. Epigastric abdominal pain. 2. History of gastric bypass. 3. Atypical chest pain. POSTOPERATIVE DIAGNOSES: 1. Epigastric abdominal pain. 2. History of gastric bypass. 3. Atypical chest pain. PROCEDURE PERFORMED: Intraoperative esophagogastrojejunoscopy. SURGEON: Camila Be MD ANESTHESIA: GENERAL INDICATIONS: The patient is a 31-year-old male with prior history of Chris-en-Y gastric bypass approximately 6 months. He presents with worsening epigastric abdominal pain after several weeks. With his history of Chris-en-Y gastric bypass, upper endoscopy was offered for further evaluation and management. DESCRIPTION: Please see full operative report regarding cholecystectomy. After his cholecystectomy was completed, I went to the head of the bed. An Olympus gastroscope was passed along the posterior oropharynx down to the distal esophagus where the squamocolumnar junction was found at approximately 38 cm from the incisors. His anastomosis was found at 40 cm, consistent with approximately 2 cm gastric pouch. No evidence of foreign body was found. Acute and chronic ulcer along the gastrojejunal anastomosis approximately 6 mm in size was found. The GI tract was desufflated. The patient tolerated the procedure well. FINDINGS: 1. Acute gastrojejunal ulceration. 2. No foreign body found along the anastomosis. PLAN: 1. Recommend therapy including Carafate as well as proton pump inhibitor. 2. Tobacco cessation and advised. 3. Repeat upper endoscopy in 4-6 weeks following treatment.
--- NOTE | 2016-11-28 15:32 | P.OP ---
Date of Procedure: 11/15/16 Preoperative Diagnosis: Postoperative Diagnosis: Procedure(s) Performed: Implants: Indications for Procedure: Operative Findings: Description of Procedure: SURGEON: OCTAVIO SIMMONS MD LINE MOVER: Brit Ellis PREOPERATIVE DIAGNOSES: 1. Acute cholecystitis. 2. Family history of gallbladder disease. 3. Morbid obesity due to excess calories. 4. Body mass index 49.8. 5. Symptomatic gallstones. 6. Right upper quadrant abdominal pain. 7. Gastroesophageal reflux disease. 8. Atypical chest pain. 9. Bradycardia. 10. Thiamine deficiency. 11. History of NSAIDs use. 12. History of gastric bypass. 13. Status post massive weight loss over 100 pounds. 14. Vertigo. 15. Epigastric abdominal pain. POSTOPERATIVE DIAGNOSES: 1. Acute cholecystitis. 2. Family history of gallbladder disease. 3. Morbid obesity due to excess calories. 4. Body mass index 49.8. 5. Symptomatic gallstones. 6. Right upper quadrant abdominal pain. 7. Gastroesophageal reflux disease. 8. Atypical chest pain. 9. Bradycardia. 10. Thiamine deficiency. 11. History of NSAIDs use. 12. History of gastric bypass. 13. Status post massive weight loss over 100 pounds. 14. Vertigo. 15. Epigastric abdominal pain. 16. Gastrojejunal marginal ulcer. 17. Tobacco abuse. OPERATION: 1. Robotic-assisted laparoscopic cholecystectomy, multiport 2. Intraoperative esophagogastrojejunoscopy (please see separate operative report) ANESTHESIA: Gen. and local anesthetic. ESTIMATED BLOOD LOSS: 5 mL. SPECIMENS REMOVED: Gallbladder. COMPLICATIONS: None. OPERATIVE FINDINGS: 1. Acute and chronic ulcer along the gastrojejunal anastomosis approximately 6 mm in size. 2. Moderate edema of gallbladder wall consistent with acute cholecystitis secondary to gallstones. 3. Gastric bypass and small bowel unremarkable. INDICATIONS: The patient is a 54-year-old female who presents with symptomatic gallstones and acute cholelcystitis. Surgical intervention with a laparoscopic cholecystectomy was described at length including injury to the biliary tree, bleeding, infection, need for further surgery. Informed consent was obtained. Robotic assisted laparoscopic approach was described. Benefits and risks of the procedure including but not limited to bleeding, infection, injury to the biliary tree was described. Informed consent was obtained. DESCRIPTION OF PROCEDURE: Patient was brought to the operating room, placed in supine position. After general induction, the abdomen had been prepped and draped in standard sterile fashion. The robotic da Keila SI system was primed. After a timeout protocol was performed, the patient had been prepped and draped in standard sterile fashion. The robot was docked above the patient. The patient was repositioned in reverse Trendelenburg position. Please note prior to docking of the robot; however, a 5 mm 0 degrees laparoscopic trocar entry was performed along the left upper quadrant. Next, two 8 mm robotic ports were placed along the right upper abdomen. The camera 12-mm port was maintained along the epigastrium. Another 8 mm port was placed along the left upper abdominal wall after exchanging the 5 mm port. Please note that the ports were placed at least 10 to 15 cm away from the target anatomy of the gallbladder. Using a grasper for arm 3, a grasper for arm 2, including hook cautery for arm 1 , the robotic system was docked and primed as described. Instruments were interchanged by the clinical physician assistant including hook cautery, Bovie cautery, scissors and clip appliers. I had sat at the console. Adhesions were identified along the infundibulum of the gallbladder and addressed using hook cautery including blunt dissection with a long forceps grasper. The gallbladder fundus was retracted over the dome of the liver. Initial attention was brought to the infundibulum which was gently retracted in the inferior lateral approach. Using a long forceps grasper, the cystic duct including the cystic artery was carefully skeletonized. Using a clip board machine set up operator 2 clips were placed proximally, and 2 clip was placed distally along the cystic duct and then cut with scissors. Again care was taken to avoid any injury to the biliary tree as the common bile duct was clearly visualized during this portion of dissection. Next, the cystic artery was clipped twice proximally, once distally and then cauterized the cut. Electro-Bovie cautery was used to remove the gallbladder from the hepatic fossa without decompression of the gallbladder. Hemostasis was checked and found to be adequate. The robot was undocked. I wet to the head of the bed to perform an intraoperative esophagogastrojejunoscopy. Please see separate operative report for details. I re-scrubbed into the case. Using a 10 mm Endo Catch bag via the 12 mm port, the specimen was removed from the abdominal cavity. The 12 mm port site was oversewn using 0 Vicryl including a Jorge Chang as well. All pneumoperitoneum instruments were evacuated from the abdominal cavity. The incisions were reapproximated using 4-0 Monocryl in an interrupted subcuticular fashion. Please note along the trocar sites, local anesthetic was placed as a field block prior to insertion of all instruments. Dermabond was applied to the skin after cleansing the skin edge with hydrogen peroxide. Optifoam was placed at the epigastric trocar site. At the end of the procedure needle, sponge, and instrument count had been verified correct by the hydro technician. The patient was transferred to postanesthesia care unit in stable condition.
== END 2016-11-16 15:25 | disposition home or self-care (01) | DRG 418 ==
LOC: EC 17:55 → 6SEL 21:02 → OBSVTOIN 11-13 16:00 → 5ONC 11-14 12:30
PROVIDERS: ADMIT Hospitalist; ATTEND Hospitalist
PROC: 8E0W4CZ Robotic Assisted Procedure of Trunk Region, Percutaneous Endoscopic Approach (ICD-10-PCS; 2016-11-15)
PROC: 0DJ08ZZ Inspection of Upper Intestinal Tract, Via Natural or Artificial Opening Endoscopic (ICD-10-PCS; 2016-11-15)
PROC: 0FT44ZZ Resection of Gallbladder, Percutaneous Endoscopic Approach (ICD-10-PCS; principal; 2016-11-15 14:55)
DX: K80.66 Calculus of gallbladder and bile duct with acute and chronic cholecystitis without obstruction (principal); K28.3 Acute gastrojejunal ulcer without hemorrhage or perforation; E66.01 Morbid (severe) obesity due to excess calories; E51.9 Thiamine deficiency, unspecified; R13.10 Dysphagia, unspecified; I10 Essential (primary) hypertension; T40.2X5A Adverse effect of other opioids, initial encounter; R00.1 Bradycardia, unspecified; J45.20 Mild intermittent asthma, uncomplicated; K28.7 Chronic gastrojejunal ulcer without hemorrhage or perforation; K21.9 Gastro-esophageal reflux disease without esophagitis; R11.2 Nausea with vomiting, unspecified; R07.89 Other chest pain; K66.0 Peritoneal adhesions (postprocedural) (postinfection); R42 Dizziness and giddiness; R63.4 Abnormal weight loss; F17.200 Nicotine dependence, unspecified, uncomplicated; R60.0 Localized edema; E55.9 Vitamin D deficiency, unspecified; E50.9 Vitamin A deficiency, unspecified; Z81.8 Family history of other mental and behavioral disorders; Z98.84 Bariatric surgery status; Z79.899 Other long term (current) drug therapy; Z82.49 Family history of ischemic heart disease and other diseases of the circulatory system; Z83.3 Family history of diabetes mellitus; Z82.3 Family history of stroke; Z71.6 Tobacco abuse counseling; Z83.79 Family history of other diseases of the digestive system; Z79.1 Long term (current) use of non-steroidal anti-inflammatories (NSAID)
CPT/HCPCS: 36415; 71275; 74022; 74177; 75635; 76705; 80048; 80053; 81003; 82150; 82550; 82553; 83690; 83735; 84439; 84443; 84484; 85025; 85610; 85730; 88304; 93005; 93306; 96361; 96374; 96375; 99285

== ENCOUNTER 2017-02-06 17:46 | Emergency (ER) | payer BC, OTHER ==
[2017-02-06 17:56] VITALS: BP 147/72; PULSE 84; RESP 18; TEMP 98.5
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
== END 2017-02-06 18:38 | disposition home or self-care (01) ==
LOC: EC 17:46
DX: Z04.3 Encounter for examination and observation following other accident (principal); I10 Essential (primary) hypertension; F17.200 Nicotine dependence, unspecified, uncomplicated; Z79.899 Other long term (current) drug therapy; V89.9XXA Person injured in unspecified vehicle accident, initial encounter; Y92.410 Unspecified street and highway as the place of occurrence of the external cause
CPT/HCPCS: 99284

== ENCOUNTER 2017-03-03 13:59 | Emergency (ER) | payer BC, OTHER ==
[2017-03-03 14:18] VITALS: BP 154/82; PULSE 81; RESP 18; TEMP 97.8
[2017-03-03] MEDS ORDERED: KETOROLAC 30 MG/ML 1 ML VIAL IVP STA (14:36)
[2017-03-03 15:24] LABS: Basophils # (A) 0.1 k/uL (0-0.2); Basophils % (A) 1 %; CH 31.1; CHCM 33.3; Eosinophils # (A) 0.4 k/uL (0-0.7); Eosinophils % (A) 5 %; HCT 47.4 % (39.0-53.0); HDW 2.41; HGB 15.9 gm/dL (13.0-17.5); Luc # (Auto) 0.12; Luc % (Auto) 1; Lymphocytes # (A) 2.3 k/uL (1.0-4.8); Lymphocytes % (A) 26 %; MCH 31.6 pg (25.0-35.0); MCHC 33.6 g/dL (31.0-37.0); MCV 93.9 fL (80.0-100.0); Monocytes # (A) 0.4 k/uL (0-1.0); Monocytes % (A) 5 %; Neutrophils # (A) 5.8 k/uL (1.3-7.7); Neutrophils % (A) 63 %; RBC 5.04 m/uL (4.30-5.90); RDW 13.1 % (11.5-15.5); WBC 9.2 k/uL (3.8-10.6); WBC (Perox) 8.51
[2017-03-03 15:32] LABS: Appearance,Urine Clear (Clear); Bilirubin,Urine Negative (Negative); Glucose,Urine (UA) Negative (Negative); Ketones,Urine Negative (Negative); Leukocyte Esterase,Urine Negative (Negative); Nitrite,Urine Negative (Negative); PH, Urine 7.5 (5.0-8.0); Protein,Urine Negative (Negative); Specific Gravity,Urine 1.014 (1.001-1.035); UA Billing (MACRO vs. MICRO) CHEM
[2017-03-03 15:38] LABS: ALT 37 U/L (21-72); AST 27 U/L (17-59); Alkaline Phosphatase 96 U/L (38-126); Amylase 94 U/L (30-110); Anion Gap 12 mmol/L; Blood Urea Nitrogen 8 mg/dL (9-20); Calcium 9.6 mg/dL (8.4-10.2); Carbon Dioxide 26 mmol/L (22-30); Chloride 105 mmol/L (98-107); Glucose 81 mg/dL (74-99); Magnesium 2.1 mg/dL (1.6-2.3); Non-African American GFR(MDRD) >60 (>60 ml/min/1.73 sqM); Potassium 4.5 mmol/L (3.5-5.1); Sodium 143 mmol/L (137-145); Total Bilirubin 0.7 mg/dL (0.2-1.3); Total Protein 7.3 g/dL (6.3-8.2)
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
--- NOTE | 2017-03-03 16:04 | US ---
EXAMINATION TYPE: US scrotum with doppler. Grayscale and color Doppler Duplex imaging performed of hyun quispe scrotum. DATE OF EXAM: 03/03/2017 COMPARISON: NONE CLINICAL HISTORY: Pain. Right testicular pain following heavy lifting EXAM MEASUREMENTS: TESTICLES: Right Testicle: 4.8 x 2.6 x 3.4 cm Left Testicle: 4.6 x 2.1 x 2.6 cm EPIDIDYMIS HEAD: Right Epididymis: 1.2 x 1.2 x 1.6 cm Left Epididymis: 0.8 x 1.0 x 1.5 cm Doppler performed to assess for testicular vascularity; good bilateral color flow and waveforms are s een. Bilateral heterogeneous testicles with microcalcifications Left epididymis: 0.7 x 0.7cm cyst Right testicle measuring larger than left, right volume 22.6ml and left volume 13.1ml Presence of hydroceles: right 3.0cm with internal debris, left 3.0cm with internal debris Presence of varicoceles: no Comparison view show symmetric blood flow to both testicles. IMPRESSION: Bilateral testicular microlithiasis. Some consider annual imaging surveillance as there i s increased risk for neoplasm. No suspicious finding is seen to account for patient's symptoms of asy mmetric acute right-sided pain.
== END 2017-03-03 16:52 | disposition home or self-care (01) ==
LOC: EC 13:59
DX: S39.011A Strain of muscle, fascia and tendon of abdomen, initial encounter (principal); N50.811 Right testicular pain; F17.200 Nicotine dependence, unspecified, uncomplicated; Z88.5 Allergy status to narcotic agent; Z88.6 Allergy status to analgesic agent; X58.XXXA Exposure to other specified factors, initial encounter
CPT/HCPCS: 99284 ×2; 96374 ×2; 36415; 80053; 82150; 83690; 83735; 85025; 81003; 93975; 76870; J1885

== ENCOUNTER 2017-04-04 01:52 | Observation (INO) | payer BC ==
[2017-04-04] MEDS ORDERED: HYDROmorphone 1 MG/ML 1 ML SYRINGE IVP STA (02:01)
[2017-04-04] MEDS ORDERED: SODIUM CHLORIDE 0.9% 1,000 ML IV STA (02:01)
[2017-04-04] MEDS ORDERED: RX INFO: IV CONTRAST WAS GIVEN 1 EACH MISC MISCELLANE PRN (02:01)
--- NOTE | 2017-04-04 02:11 | ED ---
Abdominal Pain HPI - General Chief Complaint: Abdominal Pain Stated Complaint: ABD PAIN Time Seen by Provider: 04/04/17 01:54 Source: patient, EMS, RN notes reviewed Mode of arrival: EMS Limitations: no limitations - History of Present Illness Initial Comments: 31-year-old male presents emergency Department with chief complaint of abdominal pain. Patient states it started approximately 1 hour prior arrival. Patient states it's intense tearing sensation in his epigastric region. Patient denies chest pain, shortness breath, fever, chills. Patient states that he had gastric bypass surgery approximately one year ago by Dr. Shah. Patient states that he also has gallbladder removed in October. Patient denies fever, chills, vomiting states is slightly nauseated. Denies any diarrhea constipation. Patient states started a bowel movement no relief of the symptoms. Patient denies any dysuria or hematuria. Patient states nothing really makes the pain feel better at this time. - Related Data Home Medications Medication Instructions Recorded Confirmed Acetaminophen Tab [Tylenol Tab] 1,000 mg PO Q6HR PRN 03/03/17 04/04/17 Previous Rx's Medication Instructions Recorded Omeprazole [PriLOSEC] 40 mg PO DAILY #30 capsule. 11/16/16 Sucralfate [Carafate] 1 gm PO AC-BID #60 tab 11/16/16 Allergies Allergy/AdvReac Type Severity Reaction Status Date / Time morphine Allergy Unknown Verified 04/04/17 01:53 ondansetron Allergy Unknown Verified 04/04/17 01:53 [From Zofran (as hydrochloride)] ibuprofen AdvReac BYPASS Verified 04/04/17 01:53 SURGERY Review of Systems ROS Statement: Those systems with pertinent positive or pertinent negative responses have been documented in the HPI. ROS Other: All systems not noted in ROS Statement are negative. Past Medical History Past Medical History: Asthma, GERD/Reflux, Hypertension Additional Past Medical History / Comment(s): vit d definency History of Any Multi-Drug Resistant Organisms: None Reported Past Surgical History: Adenoidectomy, Bariatric Surgery, Cholecystectomy, Tonsillectomy Additional Past Surgical History / Comment(s): 04-11-16 [facility] Y Past Anesthesia/Blood Transfusion Reactions: Motion Sickness Past Psychological History: No Psychological Hx Reported Smoking Status: Current some day smoker Past Alcohol Use History: Occasional Past Drug Use History: None Reported - Past Family History Father Family Medical History: AFIB, CVA/TIA, Diabetes Mellitus, Pulmonary Embolus Additional Family Medical History / Comment(s): at 57 from pulmonary embolism Mother Family Medical History: Hypertension Additional Family Medical History / Comment(s): anxiety, depression General Exam Limitations: no limitations General appearance: alert, in no apparent distress Head exam: Present: atraumatic, normocephalic, normal inspection Respiratory exam: Present: normal lung sounds bilaterally. Absent: respiratory distress, wheezes, rales, rhonchi, stridor Cardiovascular Exam: Present: regular rate, normal rhythm, normal heart sounds. Absent: systolic murmur, diastolic murmur, rubs, gallop, clicks GI/Abdominal exam: Present: soft, tenderness (Moderate epigastric tenderness), normal bowel sounds. Absent: distended, guarding, rebound, rigid Back exam: Absent: CVA tenderness (R), CVA tenderness (L) Skin exam: Present: warm, dry, intact, normal color. Absent: rash Course Vital Signs 04/04/17 04/04/17 04/04/17 01:53 03:58 04:53 Temperature 98 F 98.4 F Pulse Rate 86 87 84 Respiratory 18 18 16 Rate Blood Pressure 166/107 152/81 152/70 O2 Sat by Pulse 98 100 99 Oximetry Medical Decision Making - Lab Data Result diagrams: 04/04/17 09:03 04/04/17 09:03 Lab Results 04/04/17 04/04/17 04/04/17 Range/Units 02:12 02:12 02:12 WBC 11.9 H (3.8-10.6) k/uL RBC 5.13 (4.30-5.90) m/uL Hgb 15.6 (13.0-17.5) gm/dL Hct 49.0 (39.0-53.0) % MCV 95.5 (80.0-100.0) fL MCH 30.4 (25.0-35.0) pg MCHC 31.9 (31.0-37.0) g/dL RDW 15.1 (11.5-15.5) % Plt Count 303 (150-450) k/uL Neutrophils % 63 % Lymphocytes % 25 % Monocytes % 5 % Eosinophils % 5 % Basophils % 1 % Neutrophils # 7.5 (1.3-7.7) k/uL Lymphocytes # 3.0 (1.0-4.8) k/uL Monocytes # 0.5 (0-1.0) k/uL Eosinophils # 0.6 (0-0.7) k/uL Basophils # 0.1 (0-0.2) k/uL PT (9.0-12.0) sec INR (<1.2) APTT (22.0-30.0) sec Sodium 142 (137-145) mmol/L Potassium 4.2 (3.5-5.1) mmol/L Chloride 109 H (98-107) mmol/L Carbon Dioxide 24 (22-30) mmol/L Anion Gap 9 mmol/L BUN 10 (9-20) mg/dL Creatinine 0.70 (0.66-1.25) mg/dL Est GFR (MDRD) Af Amer >60 (>60 ml/min/1.73 sqM) Est GFR (MDRD) Non-Af >60 (>60 ml/min/1.73 sqM) Glucose 111 H (74-99) mg/dL Plasma Lactic Acid El 1.2 (0.7-2.0) mmol/L Calcium 9.5 (8.4-10.2) mg/dL Total Bilirubin 0.5 (0.2-1.3) mg/dL AST 22 (17-59) U/L ALT 45 (21-72) U/L Alkaline Phosphatase 88 (38-126) U/L Troponin I (0.000-0.034) ng/mL Total Protein 6.9 (6.3-8.2) g/dL Albumin 4.2 (3.5-5.0) g/dL Amylase 69 (30-110) U/L Lipase 233 (23-300) U/L 04/04/17 04/04/17 Range/Units 02:12 02:12 WBC (3.8-10.6) k/uL RBC (4.30-5.90) m/uL Hgb (13.0-17.5) gm/dL Hct (39.0-53.0) % MCV (80.0-100.0) fL MCH (25.0-35.0) pg MCHC (31.0-37.0) g/dL RDW (11.5-15.5) % Plt Count (150-450) k/uL Neutrophils % % Lymphocytes % % Monocytes % % Eosinophils % % Basophils % % Neutrophils # (1.3-7.7) k/uL Lymphocytes # (1.0-4.8) k/uL Monocytes # (0-1.0) k/uL Eosinophils # (0-0.7) k/uL Basophils # (0-0.2) k/uL PT 11.0 (9.0-12.0) sec INR 1.1 (<1.2) APTT 22.3 (22.0-30.0) sec Sodium (137-145) mmol/L Potassium (3.5-5.1) mmol/L Chloride (98-107) mmol/L Carbon Dioxide (22-30) mmol/L Anion Gap mmol/L BUN (9-20) mg/dL Creatinine (0.66-1.25) mg/dL Est GFR (MDRD) Af Amer (>60 ml/min/1.73 sqM) Est GFR (MDRD) Non-Af (>60 ml/min/1.73 sqM) Glucose (74-99) mg/dL Plasma Lactic Acid El (0.7-2.0) mmol/L Calcium (8.4-10.2) mg/dL Total Bilirubin (0.2-1.3) mg/dL AST (17-59) U/L ALT (21-72) U/L Alkaline Phosphatase (38-126) U/L Troponin I <0.012 (0.000-0.034) ng/mL Total Protein (6.3-8.2) g/dL Albumin (3.5-5.0) g/dL Amylase (30-110) U/L Lipase (23-300) U/L Disposition Clinical Impression: Intractable abdominal pain, Hx of gastric bypass, Dilatation of colon Disposition: ADMITTED IP TO THIS [facility] Condition: Stable
[2017-04-04 02:36] LABS: Basophils # (A) 0.1 k/uL (0-0.2); Basophils % (A) 1 %; CH 31.1; CHCM 32.7; Eosinophils # (A) 0.6 k/uL (0-0.7); Eosinophils % (A) 5 %; HDW 2.36; HGB 15.6 gm/dL (13.0-17.5); Luc # (Auto) 0.18; Luc % (Auto) 2; Lymphocytes % (A) 25 %; MCH 30.4 pg (25.0-35.0); MCHC 31.9 g/dL (31.0-37.0); MCV 95.5 fL (80.0-100.0); Mean Platelet Volume 8.7; Monocytes # (A) 0.5 k/uL (0-1.0); Monocytes % (A) 5 %; Neutrophils # (A) 7.5 k/uL (1.3-7.7); Neutrophils % (A) 63 %; RBC 5.13 m/uL (4.30-5.90); RDW 15.1 % (11.5-15.5); WBC 11.9 k/uL (3.8-10.6); WBC (Perox) 11.95
[2017-04-04 02:38] LABS: ALT 45 U/L (21-72); AST 22 U/L (17-59); Alkaline Phosphatase 88 U/L (38-126); Amylase 69 U/L (30-110); Anion Gap 9 mmol/L; Blood Urea Nitrogen 10 mg/dL (9-20); Calcium 9.5 mg/dL (8.4-10.2); Carbon Dioxide 24 mmol/L (22-30); Chloride 109 mmol/L (98-107); Glucose 111 mg/dL (74-99); Non-African American GFR(MDRD) >60 (>60 ml/min/1.73 sqM); Potassium 4.2 mmol/L (3.5-5.1); Sodium 142 mmol/L (137-145); Total Bilirubin 0.5 mg/dL (0.2-1.3); Total Protein 6.9 g/dL (6.3-8.2)
[2017-04-04 02:41] LABS: INR 1.1 (<1.2); Partial Thromboplastin Time 22.3 sec (22.0-30.0)
--- NOTE | 2017-04-04 02:48 | XR ---
INDICATION: Abdominal pain COMPARISON: Abdominal series 11/12/16 FINDINGS: Single frontal view of the abdomen demonstrates significant distention of the colon with gas and stool. No evidence of free air. No visible small bowel dilatation. Regional skeleton is intact IMPRESSION: Significant colonic distention. Findings may represent ileus or distal large bowel obstruction.
--- NOTE | 2017-04-04 03:14 | CT ---
INDICATION: Sudden onset abdominal pain, history of Chris-en-Y gastric bypass 1 year ago and cholecystectomy. TECHNIQUE: CT acquisition is performed through the abdomen and pelvis following the administration of 100 mL Omnipaque 300 IV contrast. Limited delayed postcontrast images were acquired through both kidneys. Sagittal and coronal reformatted images are provided. DOSE INFORMATION: CTDIvol 63.60 mGy; DLP 2553.50 mGy-cm. One or more of the following dose reduction techniques were used: automated exposure control, adjustment of the mA and/or kV according to patient size, use of iterative reconstruction technique. COMPARISON: CT abdomen and pelvis 11/12/16. FINDINGS: The lung bases are clear. There has been Chris-en-Y gastric bypass. The Chris limb is not abnormally dilated and does not appear obstructed. The pancreaticobiliary limb is not abnormally dilated and does not appear obstructed. The common channel, distal to the jejunojejunostomy, is not abnormally dilated and does not appear obstructed. There is marked distention of the colon with stool and gas. The cecum measures 10 cm in diameter, the transverse colon measures up to 9 cm in diameter, in the descending colon measures 6 cm in diameter. There is a gradual diminution in bowel caliber distally without transition point to suggest large bowel obstruction. There is no free air or portal venous gas. The gallbladder is surgically absent. The liver, spleen, pancreas, adrenal glands, and kidneys are unremarkable. Aorta and IVC are normal in caliber. There is no adenopathy. Urinary bladder is decompressed. The prostate is unremarkable. There are no acute osseous findings. IMPRESSION: 1. The colon is distended with a large amount of retained stool and gas. No evidence of large bowel obstruction. 2. Status post Chris-en-Y gastric bypass without evidence of bowel obstruction.
[2017-04-04] MEDS ORDERED: DOCUSATE 283 MG/5 ML ENEMA RECTAL STA (03:28)
[2017-04-04] MEDS ORDERED: NALOXONE 0.4 MG/ML 1 ML VIAL IV PRN (04:07)
[2017-04-04] MEDS: METOCLOPRAMIDE 5 MG/ML 2 ML VIAL IVP PRN ×3 (05:37→23:23)
[2017-04-04] MEDS: SODIUM CHLORIDE 0.9% 1,000 ML IV SCH ×2 (05:37→16:34)
[2017-04-04] MEDS: HYDROmorphone 0.5 MG/0.5 ML SYRINGE IVP PRN (05:38)
[2017-04-04 05:51] VITALS: BMI 45.4
[2017-04-04] MEDS: HYDROmorphone 1 MG/ML 1 ML SYRINGE IVP PRN ×3 (08:49→23:23)
[2017-04-04 09:39] LABS: Basophils # (A) 0.1 k/uL (0-0.2); Basophils % (A) 1 %; CH 30.3; CHCM 32.1; Eosinophils # (A) 0.3 k/uL (0-0.7); Eosinophils % (A) 3 %; HCT 43.2 % (39.0-53.0); HDW 2.39; HGB 13.9 gm/dL (13.0-17.5); Luc # (Auto) 0.15; Luc % (Auto) 2; Lymphocytes # (A) 2.6 k/uL (1.0-4.8); Lymphocytes % (A) 26 %; MCH 30.6 pg (25.0-35.0); MCHC 32.2 g/dL (31.0-37.0); Mean Platelet Volume 8.5; Monocytes # (A) 0.5 k/uL (0-1.0); Monocytes % (A) 5 %; Neutrophils # (A) 6.3 k/uL (1.3-7.7); Neutrophils % (A) 64 %; RBC 4.55 m/uL (4.30-5.90); RDW 14.7 % (11.5-15.5); WBC 9.9 k/uL (3.8-10.6); WBC (Perox) 10.39
[2017-04-04 10:03] LABS: ALT 38 U/L (21-72); AST 15 U/L (17-59); Alkaline Phosphatase 64 U/L (38-126); Anion Gap 6 mmol/L; Blood Urea Nitrogen 7 mg/dL (9-20); Carbon Dioxide 29 mmol/L (22-30); Chloride 105 mmol/L (98-107); Glucose 99 mg/dL (74-99); Non-African American GFR(MDRD) >60 (>60 ml/min/1.73 sqM); Potassium 4.1 mmol/L (3.5-5.1); Sodium 140 mmol/L (137-145); Total Bilirubin 0.4 mg/dL (0.2-1.3); Total Protein 5.9 g/dL (6.3-8.2)
[2017-04-04 10:59] LABS: Appearance,Urine Clear (Clear); Bilirubin,Urine Negative (Negative); Glucose,Urine (UA) Negative (Negative); Ketones,Urine Negative (Negative); Leukocyte Esterase,Urine Negative (Negative); Mucus,Urine Few /hpf; Nitrite,Urine Negative (Negative); Particle Count 6875; Protein,Urine 1+ (Negative); RBC,Urine 1 /hpf (0-5); Squamous Epithelial Cell,Urine <1 /hpf (0-4); UA Billing (MACRO vs. MICRO) MICRO; WBC,Urine 1 /hpf (0-5)
[2017-04-04 11:57] LABS: Specific Gravity,Urine >1.050 (1.001-1.035)
--- NOTE | 2017-04-04 14:39 | P.GSHP ---
<Mary Jadeelena Ruffin - Last Filed: 04/04/17 14:26> History of Present Illness H&P Date: 04/04/17 31-year-old male presented on the day of admission to the emergency room to be evaluated for a sudden onset of epigastric pain. Patient stated he woke him up with a sudden onset of midepigastric pain. Patient stated it was intense felt like a tearing sensation in the epigastric area. Patient stated he felt nauseated did not vomit. Patient denied a change in bowel habits. Denied experiencing any diarrhea or constipation. Patient stated he tried to have a bowel movement there was no relief. Patient presented to the emergency room to be evaluated for the above-mentioned symptoms. Patient did undergo gastric bypass surgery in March 2016 and has lost 100 pounds.. Additionally patient on 11/15/2016 did have a upper scopic cholecystectomy done for acute cholecystitis. Patient does state that he has been smoking cigarettes between 6 and 8 a day. In the emergency room patient did have an abdominal x-ray that showed significant colon distention computed tomography scan of the abdomen and pelvis with contrast it showed the colon Distended with a large amount of retained stool and gas no evidence of a small bowel obstruction status post vy -en-y gastric bypass without evidence of a bowel obstruction - Review of Systems Comment: Essentially unremarkable except as mentioned in the present illness Past Medical History Past Medical History: Asthma, GERD/Reflux, Hypertension Additional Past Medical History / Comment(s): vit d definency History of Any Multi-Drug Resistant Organisms: None Reported Past Surgical History: Adenoidectomy, Bariatric Surgery, Cholecystectomy, Tonsillectomy Additional Past Surgical History / Comment(s): 04-11-16 [facility] Y Past Anesthesia/Blood Transfusion Reactions: Motion Sickness Past Psychological History: No Psychological Hx Reported Smoking Status: Current some day smoker Past Alcohol Use History: Occasional Past Drug Use History: None Reported - Past Family History Father Family Medical History: AFIB, CVA/TIA, Diabetes Mellitus, Pulmonary Embolus Additional Family Medical History / Comment(s): at 57 from pulmonary embolism Mother Family Medical History: Hypertension Additional Family Medical History / Comment(s): anxiety, depression Medications and Allergies Home Medications Medication Instructions Recorded Confirmed Type Omeprazole [PriLOSEC] 40 mg PO DAILY #30 capsule. 11/16/16 04/04/17 Rx Sucralfate [Carafate] 1 gm PO AC-BID #60 tab 11/16/16 04/04/17 Rx Acetaminophen Tab [Tylenol Tab] 1,000 mg PO Q6HR PRN 03/03/17 04/04/17 History Allergies Allergy/AdvReac Type Severity Reaction Status Date / Time morphine Allergy Unknown Verified 04/04/17 01:53 ondansetron Allergy Unknown Verified 04/04/17 01:53 [From Zofran (as hydrochloride)] ibuprofen AdvReac BYPASS Verified 04/04/17 01:53 SURGERY Surgical - Exam Vital Signs Temp Pulse Resp BP Pulse Ox 98 F 86 18 166/107 98 04/04/17 01:53 04/04/17 01:53 04/04/17 01:53 04/04/17 01:53 04/04/17 01:53 GENERAL APPEARANCE: 31-year-old male patient is alert, oriented, in no acute distress abdominal pain improving VITAL SIGNS: Reviewed HEENT: Head is normocephalic and atraumatic. Pupils are equal and reactive. The nares are patent. Oropharynx is clear without lesions. NECK: Supple without lymphadenopathy. Traches midline. HEART: S1, S2. Regular rate and rhythm. Denying chest pain no murmur LUNGS: No crackles or wheezes are heard. Adequate air movement bilaterally ABDOMEN: Soft, epigastric tenderness nondistended with good bowel sounds. No peritoneal signs. No palpable organomegaly or masses. EXTREMITIES: Normal skin color and turgor. No cyanosis, rash, ulceration, clubbing or edema. Radial pedal pulses are 2/4 bilaterally. NEUROLOGICAL: No focal deficits. Strength and sensation are grossly intact. Results - Labs 04/04/17 09:03 04/04/17 09:03 Abnormal Lab Results - Last 24 Hours (Table) 04/04/17 04/04/17 04/04/17 Range/Units 02:12 02:12 09:03 WBC 11.9 H (3.8-10.6) k/uL Chloride 109 H (98-107) mmol/L BUN 7 L (9-20) mg/dL Glucose 111 H (74-99) mg/dL AST 15 L (17-59) U/L Total Protein 5.9 L (6.3-8.2) g/dL Albumin 3.4 L (3.5-5.0) g/dL Ur Specific [place] (1.001-1.035) Urine Protein (Negative) Urine Mucus (None) /hpf 04/04/17 Range/Units 10:30 WBC (3.8-10.6) k/uL Chloride (98-107) mmol/L BUN (9-20) mg/dL Glucose (74-99) mg/dL AST (17-59) U/L Total Protein (6.3-8.2) g/dL Albumin (3.5-5.0) g/dL Ur Specific [place] >1.050 H (1.001-1.035) Urine Protein 1+ H (Negative) Urine Mucus Few H (None) /hpf Diabetes panel 04/04/17 04/04/17 Range/Units 02:12 09:03 Sodium 142 140 (137-145) mmol/L Potassium 4.2 4.1 (3.5-5.1) mmol/L Chloride 109 H 105 (98-107) mmol/L Carbon Dioxide 24 29 (22-30) mmol/L BUN 10 7 L (9-20) mg/dL Creatinine 0.70 0.70 (0.66-1.25) mg/dL Glucose 111 H 99 (74-99) mg/dL Calcium 9.5 9.0 (8.4-10.2) mg/dL AST 22 15 L (17-59) U/L ALT 45 38 (21-72) U/L Alkaline Phosphatase 88 64 (38-126) U/L Total Protein 6.9 5.9 L (6.3-8.2) g/dL Albumin 4.2 3.4 L (3.5-5.0) g/dL Calcium panel 04/04/17 04/04/17 Range/Units 02:12 09:03 Calcium 9.5 9.0 (8.4-10.2) mg/dL Albumin 4.2 3.4 L (3.5-5.0) g/dL Pituitary panel 04/04/17 04/04/17 Range/Units 02:12 09:03 Sodium 142 140 (137-145) mmol/L Potassium 4.2 4.1 (3.5-5.1) mmol/L Chloride 109 H 105 (98-107) mmol/L Carbon Dioxide 24 29 (22-30) mmol/L BUN 10 7 L (9-20) mg/dL Creatinine 0.70 0.70 (0.66-1.25) mg/dL Glucose 111 H 99 (74-99) mg/dL Calcium 9.5 9.0 (8.4-10.2) mg/dL Adrenal panel 04/04/17 04/04/17 Range/Units 02:12 09:03 Sodium 142 140 (137-145) mmol/L Potassium 4.2 4.1 (3.5-5.1) mmol/L Chloride 109 H 105 (98-107) mmol/L Carbon Dioxide 24 29 (22-30) mmol/L BUN 10 7 L (9-20) mg/dL Creatinine 0.70 0.70 (0.66-1.25) mg/dL Glucose 111 H 99 (74-99) mg/dL Calcium 9.5 9.0 (8.4-10.2) mg/dL Total Bilirubin 0.5 0.4 (0.2-1.3) mg/dL AST 22 15 L (17-59) U/L ALT 45 38 (21-72) U/L Alkaline Phosphatase 88 64 (38-126) U/L Total Protein 6.9 5.9 L (6.3-8.2) g/dL Albumin 4.2 3.4 L (3.5-5.0) g/dL Assessment and Plan Assessment: Impression Present on admission acute epigastric pain unclear etiology History of morbid obesity due to excessive calories BMI 45 Status post pqlx-aj-[id number]-gastric bypass apr 11 2016 lost over 100 pounds Recent laparoscopic cholecystectomy November 15 Current every day smoker Hypertension Plan Start protonix 40 IV every 12 Reinforce smoking cessation patient's been advised to stop smoking cigarettes Scheduled for an EGD in the morning IV fluid for hydration Further recommendations pending Nothing by mouth after midnight for planned EGD in the morning The above impression and plan of care have been discussed and directed by signing physician. Annalisa Jade nurse practitioner acting as scribe for signing physician. <Camila Be - Last Filed: 04/04/17 23:21> Surgical - Exam Vital Signs Temp Pulse Resp BP Pulse Ox 98 F 86 18 166/107 98 04/04/17 01:53 04/04/17 01:53 04/04/17 01:53 04/04/17 01:53 04/04/17 01:53 Results - Labs 04/04/17 09:03 04/04/17 09:03 Abnormal Lab Results - Last 24 Hours (Table) 04/04/17 04/04/17 04/04/17 Range/Units 02:12 02:12 09:03 WBC 11.9 H (3.8-10.6) k/uL Chloride 109 H (98-107) mmol/L BUN 7 L (9-20) mg/dL Glucose 111 H (74-99) mg/dL AST 15 L (17-59) U/L Total Protein 5.9 L (6.3-8.2) g/dL Albumin 3.4 L (3.5-5.0) g/dL Ur Specific [place] (1.001-1.035) Urine Protein (Negative) Urine Mucus (None) /hpf 04/04/17 Range/Units 10:30 WBC (3.8-10.6) k/uL Chloride (98-107) mmol/L BUN (9-20) mg/dL Glucose (74-99) mg/dL AST (17-59) U/L Total Protein (6.3-8.2) g/dL Albumin (3.5-5.0) g/dL Ur Specific [place] >1.050 H (1.001-1.035) Urine Protein 1+ H (Negative) Urine Mucus Few H (None) /hpf Diabetes panel 04/04/17 04/04/17 Range/Units 02:12 09:03 Sodium 142 140 (137-145) mmol/L Potassium 4.2 4.1 (3.5-5.1) mmol/L Chloride 109 H 105 (98-107) mmol/L Carbon Dioxide 24 29 (22-30) mmol/L BUN 10 7 L (9-20) mg/dL Creatinine 0.70 0.70 (0.66-1.25) mg/dL Glucose 111 H 99 (74-99) mg/dL Calcium 9.5 9.0 (8.4-10.2) mg/dL AST 22 15 L (17-59) U/L ALT 45 38 (21-72) U/L Alkaline Phosphatase 88 64 (38-126) U/L Total Protein 6.9 5.9 L (6.3-8.2) g/dL Albumin 4.2 3.4 L (3.5-5.0) g/dL Calcium panel 04/04/17 04/04/17 Range/Units 02:12 09:03 Calcium 9.5 9.0 (8.4-10.2) mg/dL Albumin 4.2 3.4 L (3.5-5.0) g/dL Pituitary panel 04/04/17 04/04/17 Range/Units 02:12 09:03 Sodium 142 140 (137-145) mmol/L Potassium 4.2 4.1 (3.5-5.1) mmol/L Chloride 109 H 105 (98-107) mmol/L Carbon Dioxide 24 29 (22-30) mmol/L BUN 10 7 L (9-20) mg/dL Creatinine 0.70 0.70 (0.66-1.25) mg/dL Glucose 111 H 99 (74-99) mg/dL Calcium 9.5 9.0 (8.4-10.2) mg/dL Adrenal panel 04/04/17 04/04/17 Range/Units 02:12 09:03 Sodium 142 140 (137-145) mmol/L Potassium 4.2 4.1 (3.5-5.1) mmol/L Chloride 109 H 105 (98-107) mmol/L Carbon Dioxide 24 29 (22-30) mmol/L BUN 10 7 L (9-20) mg/dL Creatinine 0.70 0.70 (0.66-1.25) mg/dL Glucose 111 H 99 (74-99) mg/dL Calcium 9.5 9.0 (8.4-10.2) mg/dL Total Bilirubin 0.5 0.4 (0.2-1.3) mg/dL AST 22 15 L (17-59) U/L ALT 45 38 (21-72) U/L Alkaline Phosphatase 88 64 (38-126) U/L Total Protein 6.9 5.9 L (6.3-8.2) g/dL Albumin 4.2 3.4 L (3.5-5.0) g/dL
[2017-04-04] MEDS: PANTOPRAZOLE 40 MG/10 ML VIAL IVP SCH ×2 (15:12→23:23)
[2017-04-04 21:20] VITALS: RESP 18
--- NOTE | 2017-04-04 23:22 | P.PN ---
Progress Note - Text Progress Note Date: 04/04/17 Patient seen and evaluated. CT of the abdomen and pelvis. Consistent with spontaneous large bowel obstruction. He still reports epigastric abdominal pain. He was able to pass flatus and have bowel movement releasing moderate gas. Findings on computed tomography scan highly suspicious for intermittent cecal volvulus. We'll proceed with upper endoscopy with known history of gastric ulcer including continued smoking. Tobacco cessation and counseling performed.
[2017-04-05 07:20] VITALS: PULSE 60; TEMP 98.5
[2017-04-05] MEDS: SODIUM CHLORIDE 0.9% 1,000 ML IV SCH (07:22)
[2017-04-05] MEDS: HYDROmorphone 0.5 MG/0.5 ML SYRINGE IVP PRN (07:27)
[2017-04-05] MEDS: METOCLOPRAMIDE 5 MG/ML 2 ML VIAL IVP PRN (07:29)
[2017-04-05] MEDS: PANTOPRAZOLE 40 MG/10 ML VIAL IVP SCH (09:22)
[2017-04-05] MEDS ORDERED: LIDOCAINE 1% INJ 10MG/ML (20 ML MDV) ONE (10:49)
[2017-04-05] MEDS ORDERED: GLYCOPYRROLATE 0.2 MG/ML 2 ML VIAL ONE (10:49)
[2017-04-05] MEDS ORDERED: PROPOFOL 10 MG/ML 20 ML VIAL IV ONE (10:49)
[2017-04-05] MEDS ORDERED: KETAMINE 10 MG/ML 20 ML VIAL ONE (10:49)
[2017-04-05] MEDS ORDERED: IV FLUID CONTINUATION 1,000 ML IV ONE (10:51)
[2017-04-05 10:53] VITALS: BP 138/63
--- NOTE | 2017-04-05 11:17 | P.PCN ---
Date of Procedure: 04/05/17 Description of Procedure: PREOPERATIVE DIAGNOSIS: History of epigastric abdominal pain. Personal history of gastric ulcer. Active tobacco abuse. POSTOPERATIVE DIAGNOSIS: History of epigastric abdominal pain. Personal history of gastric ulcer. Active tobacco abuse. OPERATION: Esophagogastrojejunoscopy. SURGEON: Camila Be MD ANESTHESIA: MAC. INDICATIONS: The patient is a 31-year-old male who presents with acute epigastric abdominal pain including personal history of tobacco use and gastric ulcers. Benefits and risks of the procedure were described. Informed consent was obtained. DESCRIPTION: The patient was brought into the endoscopy suite and laid in the left lateral decubitus position. After a timeout was confirmed, the procedure was initiated. An Olympus gastroscope was passed along the posterior oropharynx down to the distal esophagus where the squamocolumnar junction was unremarkable. The gastric pouch was entered. The anastomosis was widely patent. The scope was advanced up to 60 cm from the incisors into the Chris limb. The mucosa of the gastrojejunal anastomosis was intact. No chronic gastrojejunal marginal ulcer was encountered. No full-thickness injury was encountered. The GI tract was desufflated. The patient tolerated the procedure well. FINDINGS: Squamocolumnar junction unremarkable at 37 cm. No stricture of the gastrojejunal anastomosis. No chronic gastrojejunal ulceration encountered. Widely patent gastrojejunal anastomosis. RECOMMENDATIONS: Upper endoscopy as needed.
--- NOTE | 2017-04-05 14:18 | P.DS ---
Providers Date of admission: 04/04/17 04:07 Expected date of discharge: 04/05/17 Attending physician: Camila Be Primary care physician: [facility] Course: 31-year-old male presented on the day of admission to the emergency room to be evaluated for a sudden onset of epigastric pain. Patient stated he woke him up with a sudden onset of midepigastric pain. Patient stated it was intense felt like a tearing sensation in the epigastric area. Patient stated he felt nauseated did not vomit. Patient denied a change in bowel habits. Denied experiencing any diarrhea or constipation. Patient stated he tried to have a bowel movement there was no relief. Patient presented to the emergency room to be evaluated for the above-mentioned symptoms. Patient did undergo gastric bypass surgery in March 2016 and has lost 100 pounds.. Additionally patient on 11/15/2016 did have a upper scopic cholecystectomy done for acute cholecystitis. Patient does state that he has been smoking cigarettes between 6 and 8 a day. In the emergency room patient did have an abdominal x-ray that showed significant colon distention computed tomography scan of the abdomen and pelvis with contrast it showed the colon Distended with a large amount of retained stool CAT scan of the abdomen pelvis reviewed by Dr. Be did show findings consistent with a spontaneous large bowel obstruction . Patient's abdominal pain improved patient was able to pass gas had a bowel movement Patient did undergo an EGD on April 05 showed History of a recent status post vy-en-y gastric bypass without evidence of a bowel obstruction done on 04/11/2016 Impression Present on admission sudden onset acute epigastric pain suspect due to spontaneous large bowel obstruction History of morbid obesity due to excessive calories BMI 45 Status post txso-sx-i-gastric bypass apr 11 2016 lost over 100 pounds Recent laparoscopic cholecystectomy November 15 Current every day smoker 8-10 cigarettes daily Hypertension essential EGD April 05 showed a Widely patent gastrojejunal anastomosis. With no stricture noted at the gastrojejunal anastomosis The above impression and plan of care have been discussed and directed by signing physician. Annalisa Jade nurse practitioner acting as scribe for signing physician. Patient Condition at Discharge: Stable Plan - Discharge Summary Discharge Rx Participant: No New Discharge Prescriptions: Continue Omeprazole [PriLOSEC] 40 mg PO DAILY #30 capsule. Acetaminophen Tab [Tylenol] 1,000 mg PO Q6HR PRN PRN Reason: Pain Or Fever > 100.5 Discontinued Sucralfate [Carafate] 1 gm PO AC-BID #60 tab Discharge Medication List Omeprazole [PriLOSEC] 40 mg PO DAILY #30 capsule. 11/16/16 [Rx] Acetaminophen Tab [Tylenol] 1,000 mg PO Q6HR PRN 03/03/17 [History] Follow up Appointment(s)/Referral(s): Vishal Garrison DO [Primary Care Provider] - 1-2 days (Office will call upon discharge to set up a follow up appointment) Camila Be MD [STAFF PHYSICIAN] - 1 Week Activity/Diet/Wound Care/Special Instructions: Smoking cessation information patient's been advised to stop smoking cigarettes Discharge Disposition: HOME SELF-CARE
== END 2017-04-05 13:50 | disposition home or self-care (01) ==
LOC: EC 01:52 → 5MS5E 04:07
PROVIDERS: ADMIT Surgery Plastic and Reconstructive Surgery; ATTEND Surgery Plastic and Reconstructive Surgery
DX: R10.13 Epigastric pain (principal); R11.0 Nausea; K59.39 Other megacolon; Z98.84 Bariatric surgery status; I10 Essential (primary) hypertension; K21.9 Gastro-esophageal reflux disease without esophagitis; F17.210 Nicotine dependence, cigarettes, uncomplicated; Z79.899 Other long term (current) drug therapy; Z90.49 Acquired absence of other specified parts of digestive tract; Z88.5 Allergy status to narcotic agent; Z88.6 Allergy status to analgesic agent; Z88.8 Allergy status to other drugs, medicaments and biological substances; Z87.11 Personal history of peptic ulcer disease
CPT/HCPCS: 96361 ×3; 96374 ×2; 99285 ×2; 96376 ×2; 96375; 36415; 80053; 82150; 83605; 83690; 84484; 85025; 85610; 85730; 81001; 74000; 74177; 43235; G0378 ×2; J2765 ×2; J2001; J1170 ×3; Q9967; J2704; C9113 ×2

== ENCOUNTER 2017-07-03 22:36 | Inpatient (IN) | payer BC ==
[2017-07-03] MEDS ORDERED: RX INFO: IV CONTRAST WAS GIVEN 1 EACH MISC MISCELLANE PRN (23:02)
[2017-07-03] MEDS ORDERED: diphenhydrAMINE 50 MG/ML 1 ML VIAL IVP STA (23:02)
[2017-07-03] MEDS ORDERED: IOHEXOL 350 MG/ML 25 ML BOTTLE (ORAL USE) PO PRN (23:02)
[2017-07-03] MEDS ORDERED: METOCLOPRAMIDE 5 MG/ML 2 ML VIAL IVP STA (23:02)
[2017-07-03] MEDS ORDERED: HYDROmorphone 2 MG/ML 1 ML SYRINGE IVP STA (23:02)
[2017-07-03] MEDS ORDERED: SODIUM CHLORIDE 0.9% 500 ML IV ONE ×2 (23:03→23:58)
[2017-07-03 23:10] LABS: Basophils # (A) 0.1 k/uL (0-0.2); Basophils % (A) 1 %; Eosinophils # (A) 0.4 k/uL (0-0.7); Eosinophils % (A) 6 %; HCT 49.4 % (39.0-53.0); HGB 16.5 gm/dL (13.0-17.5); Lymphocytes # (A) 2.8 k/uL (1.0-4.8); Lymphocytes % (A) 42 %; MCH 31.2 pg (25.0-35.0); MCHC 33.4 g/dL (31.0-37.0); MCV 93.4 fL (80.0-100.0); Mean Platelet Volume 7.8; Monocytes # (A) 0.4 k/uL (0-1.0); Monocytes % (A) 6 %; Neutrophils # (A) 2.8 k/uL (1.3-7.7); Neutrophils % (A) 42 %; Platelet Count 257 k/uL (150-450); RBC 5.29 m/uL (4.30-5.90); RDW 12.8 % (11.5-15.5); WBC 6.7 k/uL (3.8-10.6)
[2017-07-03] MEDS ORDERED: HYDROmorphone 4 MG/ML 1 ML SYRINGE IVP STA (23:17)
[2017-07-03 23:21] LABS: ALT 35 U/L (21-72); AST 23 U/L (17-59); Albumin 4.6 g/dL (3.5-5.0); Alkaline Phosphatase 81 U/L (38-126); Amylase 85 U/L (30-110); Anion Gap 12 mmol/L; Blood Urea Nitrogen 12 mg/dL (9-20); Calcium 10.1 mg/dL (8.4-10.2); Carbon Dioxide 31 mmol/L (22-30); Chloride 102 mmol/L (98-107); Glucose 116 mg/dL (74-99); Lipase 149 U/L (23-300); Potassium 4.5 mmol/L (3.5-5.1); Sodium 145 mmol/L (137-145); Total Bilirubin 0.5 mg/dL (0.2-1.3); Total Protein 7.2 g/dL (6.3-8.2)
--- NOTE | 2017-07-03 23:52 | CT ---
EXAMINATION TYPE: CT abdomen pelvis w con DATE OF EXAM: 07/03/2017 COMPARISON: 04/04/2017 HISTORY: Epigastric abd pain CT DLP: 2646.00 mGycm Automated exposure control for dose reduction was used. TECHNIQUE: Helical acquisition of images was performed from the lung bases through the pelvis. CONTRAST: Performed with Oral Contrast and with IV Contrast, patient injected with 100 mL of Omnipaque 300. FINDINGS: Lung bases are clear of consolidation. Heart size is normal. There are surgical clips around the stom ach. There is apparent gastrojejunostomy. There is dilated jejunum with a transition point in the lef t mid abdomen. The jejunum is dilated to 4 cm. There are surgical clips at the transition. This is be st seen on coronal image 30. There is no sign of free air. There is no ascites. Kidneys show satisfactory contrast opacification. There is no hydronephrosis. There is no adrenal mas s. There is no retroperitoneal adenopathy. Spleen pancreas liver appear normal. Bile ducts are not dilated. Gallbladder is absent. Bony structures appear intact. There is no sign of free air. IMPRESSION: THERE IS DILATED JEJUNUM CONSISTENT WITH PROXIMAL MECHANICAL SMALL BOWEL OBSTRUCTION. THERE IS A FARRELL SITION POINT IN THE LEFT MID ABDOMEN AT THE SITE OF MULTIPLE CLIPS. PREVIOUS SURGERY SEEN INVOLVING T HE JEJUNUM AND THE STOMACH. THE SMALL BOWEL OBSTRUCTION APPEARS NEW COMPARED TO OLD EXAM. THERE IS CLEARING OF THE DILATED AIR AND FLUID-FILLED LOOPS OF LARGE BOWEL COMPARED TO OLD EXAM.
[2017-07-03] MEDS ORDERED: NALOXONE 0.4 MG/ML 1 ML VIAL IV PRN (23:55)
--- NOTE | 2017-07-03 23:55 | ED ---
Abdominal Pain HPI - General Chief Complaint: Abdominal Pain Stated Complaint: poss bowel obstruction Time Seen by Provider: 07/03/17 22:52 Source: patient, family Mode of arrival: ambulatory Limitations: no limitations - History of Present Illness Initial Comments: 32-year-old male patient percents to the emergency department today for complaints of upper abdominal pain. Patient states the pain started suddenly around 8 PM this evening. He states he has had several episodes of vomiting since then. States he did have a couple episodes of diarrhea at symptom onset however he is no longer passing any stool or flatus. He denies any fevers or chills with this. Denies any sick contacts. States that he has had a bowel obstruction in the past and this feels similar to those symptoms. Patient did undergo Chris-en-Y gastric bypass surgery at the end of [address] Be. He states that he was tolerating oral intake without difficulty throughout the day. He denies any hematemesis, hematochezia, or melena. Patient denies any recent rash, fever, chills, shortness breath, chest pain, back pain, numbness, tingling, dizziness, weakness, hematuria, dysuria, urinary urgency, urinary frequency, headache, visual changes, or any other complaints. - Related Data Home Medications Medication Instructions Recorded Confirmed Acetaminophen Tab [Tylenol] 1,000 mg PO Q6HR PRN 03/03/17 07/03/17 Previous Rx's Medication Instructions Recorded Omeprazole [PriLOSEC] 40 mg PO DAILY #30 capsule. 11/16/16 Allergies Allergy/AdvReac Type Severity Reaction Status Date / Time morphine Allergy Unknown Verified 07/03/17 23:09 ondansetron Allergy Unknown Verified 07/03/17 23:09 [From Zofran (as hydrochloride)] ibuprofen AdvReac BYPASS Verified 07/03/17 23:09 SURGERY Review of Systems ROS Statement: Those systems with pertinent positive or pertinent negative responses have been documented in the HPI. ROS Other: All systems not noted in ROS Statement are negative. Past Medical History Past Medical History: Asthma, GERD/Reflux, Hypertension Additional Past Medical History / Comment(s): vit d definency History of Any Multi-Drug Resistant Organisms: None Reported Past Surgical History: Adenoidectomy, Bariatric Surgery, Cholecystectomy, Tonsillectomy Additional Past Surgical History / Comment(s): 04-11-16 CHRIS EN Y Past Anesthesia/Blood Transfusion Reactions: Motion Sickness Past Psychological History: No Psychological Hx Reported Smoking Status: Current some day smoker Past Alcohol Use History: Occasional Past Drug Use History: None Reported - Past Family History Father Family Medical History: AFIB, CVA/TIA, Diabetes Mellitus, Pulmonary Embolus Additional Family Medical History / Comment(s): at 57 from pulmonary embolism Mother Family Medical History: Hypertension Additional Family Medical History / Comment(s): anxiety, depression General Exam Limitations: no limitations General appearance: alert, in no apparent distress, other (This is a well- developed, well-nourished adult male patient in mild distress related to pain. Vital signs upon presentation were temperature 97.8F, pulse 64, respirations 20 , blood pressure 180/100, pulse ox 99% on room air.) Eye exam: Present: normal appearance, PERRL, EOMI. Absent: scleral icterus, conjunctival injection, periorbital swelling ENT exam: Present: normal exam, normal oropharynx, mucous membranes moist Respiratory exam: Present: wheezes (Faint expiratory wheezing in all lung cameron posteriorly.). Absent: normal lung sounds bilaterally, respiratory distress, rales, rhonchi, stridor Cardiovascular Exam: Present: regular rate, normal rhythm, normal heart sounds. Absent: systolic murmur, diastolic murmur, rubs, gallop, clicks GI/Abdominal exam: Present: soft, tenderness (Upper abdominal tenderness, over the midepigastric region), normal bowel sounds. Absent: distended, guarding, rebound, rigid Neurological exam: Present: alert, oriented X3, CN II-XII intact Psychiatric exam: Present: normal affect, normal mood Skin exam: Present: warm, dry, intact, normal color. Absent: rash Course Vital Signs 07/03/17 07/03/17 22:43 23:42 Temperature 97.8 F Pulse Rate 64 55 L Respiratory 20 13 Rate Blood Pressure 180/100 159/91 O2 Sat by Pulse 99 95 Oximetry Medical Decision Making - Medical Decision Making 32-year-old male patient presented to the emergency department today for sudden onset upper abdominal pain with vomiting and diarrhea. Physical examination does reveal tenderness in the midepigastric region. Patient reports he is not passing flatus or stool any longer. Labs reviewed and are unremarkable. CT of the abdomen and pelvis with contrast was obtained and did show a mechanical small bowel obstruction with a transition point in the jejunum. Did speak to Dr. Shah who admits patient to her service. She gives instructions for IV fluids, diet, and pain management. Results of been discussed with the patient, he agrees with plan. - Lab Data Result diagrams: 07/03/17 22:56 07/03/17 22:56 Lab Results 07/03/17 07/03/17 Range/Units 22:56 22:56 WBC 6.7 (3.8-10.6) k/uL RBC 5.29 (4.30-5.90) m/uL Hgb 16.5 (13.0-17.5) gm/dL Hct 49.4 (39.0-53.0) % MCV 93.4 (80.0-100.0) fL MCH 31.2 (25.0-35.0) pg MCHC 33.4 (31.0-37.0) g/dL RDW 12.8 (11.5-15.5) % Plt Count 257 (150-450) k/uL Neutrophils % 42 % Lymphocytes % 42 % Monocytes % 6 % Eosinophils % 6 % Basophils % 1 % Neutrophils # 2.8 (1.3-7.7) k/uL Lymphocytes # 2.8 (1.0-4.8) k/uL Monocytes # 0.4 (0-1.0) k/uL Eosinophils # 0.4 (0-0.7) k/uL Basophils # 0.1 (0-0.2) k/uL Sodium 145 (137-145) mmol/L Potassium 4.5 (3.5-5.1) mmol/L Chloride 102 (98-107) mmol/L Carbon Dioxide 31 H (22-30) mmol/L Anion Gap 12 mmol/L BUN 12 (9-20) mg/dL Creatinine 1.00 (0.66-1.25) mg/dL Est GFR (MDRD) Af Amer >60 (>60 ml/min/1.73 sqM) Est GFR (MDRD) Non-Af >60 (>60 ml/min/1.73 sqM) Glucose 116 H (74-99) mg/dL Calcium 10.1 (8.4-10.2) mg/dL Total Bilirubin 0.5 (0.2-1.3) mg/dL AST 23 (17-59) U/L ALT 35 (21-72) U/L Alkaline Phosphatase 81 (38-126) U/L Total Protein 7.2 (6.3-8.2) g/dL Albumin 4.6 (3.5-5.0) g/dL Amylase 85 (30-110) U/L Lipase 149 (23-300) U/L - Radiology Data Radiology results: report reviewed, image reviewed CT of the abdomen and pelvis with contrast was obtained, report was reviewed in its entirety. Impression by Dr. Daugherty shows dilated jejunum consistent with proximal mechanical small bowel obstruction. There is a transition point in the left mid abdomen at the site of the multiple clips. Previous surgery seen involving the jejunum and the stomach. The small bowel obstruction appears new compared to old exam. There is clearing of the dilated air and fluid-filled loops of large bowel compared to old exam. Disposition Clinical Impression: Small bowel obstruction Disposition: ADMITTED IP TO THIS [facility] Condition: Serious Referrals: Vishal Garrison DO [Primary Care Provider] - 1-2 days Decision to Admit Reason: Admit from EC Decision Date: 07/03/17 Decision Time: 23:55
[2017-07-03] MEDS ORDERED: METOCLOPRAMIDE 5 MG/ML 2 ML VIAL IVP PRN (23:57)
[2017-07-03] MEDS ORDERED: SODIUM CHLORIDE 0.9% 1,000 ML IV ONE (23:58)
[2017-07-04] MEDS ORDERED: SCOPOLAMINE 1.5MG/72HR PATCH TRANSDERM SCH (03:15)
[2017-07-04] MEDS: SODIUM CHLORIDE 0.9% 1,000 ML IV SCH ×2 (03:34→10:53)
[2017-07-04] MEDS: HYDROmorphone 4 MG/ML 1 ML SYRINGE IVP PRN ×3 (04:22→10:48)
--- NOTE | 2017-07-04 12:15 | P.GSHP ---
History of Present Illness H&P Date: 07/04/17 32-year-old male presented on the day of admission to the emergency room with a chief complaint of bilateral upper abdominal pain. Patient stated the pain occurred around 8:00 yesterday evening after he had eaten a small piece of steak. states that after he ate a small piece of steak 1 hour after he started developing cramping pain in his stomach. Patient states 2 days prior had an episode of diarrhea loose watery stools with cramping. Last bowel movement at 7:30 last evening. Not able to pass any gas no further bowel movements. States able to drink water does have a nausea sensation. Patient states was excruciating abdominal cramping pain Patient does have a past surgical history of undergoing chris-en-y gastric bypass surgery at the end of [address] Shah. Patient states that since the surgery he has lost over 100 pounds. Patient was last hospitalized in 01/15/2017 at that time was treated for abdominal pain midepigastric with a CAT scan of the abdomen pelvis consistent with a spontaneous large bowel obstruction. underwent an EGD at that admission which showed a widely patent gastrojejunal stenosis with no stricture noted. Patient states this discomfort he been experiencing felt similar to prior episode - Review of Systems Comment: Essentially unremarkable except as mentioned in the present illness Past Medical History Past Medical History: Asthma, GERD/Reflux, Hypertension Additional Past Medical History / Comment(s): Past large bowel obstruction, gastric ulcer, past dysphagia after Chris-en-y surgery-none now, high cholesterol -not on rx yet, no longer on antihypertensives, past vit d definency History of Any Multi-Drug Resistant Organisms: None Reported Past Surgical History: Adenoidectomy, Bariatric Surgery, Cholecystectomy, Tonsillectomy Additional Past Surgical History / Comment(s): 04-11-16 CHRIS EN Y, EGDs, colonoscopy, frenulectomy. Past Anesthesia/Blood Transfusion Reactions: Motion Sickness Smoking Status: Current some day smoker - Past Family History Father Family Medical History: AFIB, Congestive Heart Failure (CHF), COPD, CVA/TIA, Diabetes Mellitus, Pulmonary Embolus Additional Family Medical History / Comment(s): at 57 from pulmonary embolism. Father had TIA. Mother Family Medical History: Diabetes Mellitus, Hypertension Additional Family Medical History / Comment(s): anxiety, depression, osteoporosis. Medications and Allergies Home Medications Medication Instructions Recorded Confirmed Type Omeprazole [PriLOSEC] 40 mg PO DAILY #30 capsule. 11/16/16 07/03/17 Rx Acetaminophen Tab [Tylenol] 1,000 mg PO Q6HR PRN 03/03/17 07/03/17 History Allergies Allergy/AdvReac Type Severity Reaction Status Date / Time morphine Allergy Unknown Verified 07/03/17 23:09 ondansetron Allergy Unknown Verified 07/03/17 23:09 [From Zofran (as hydrochloride)] ibuprofen AdvReac BYPASS Verified 07/03/17 23:09 SURGERY Surgical - Exam Vital Signs Temp Pulse Resp BP Pulse Ox 97.8 F 64 20 180/100 99 07/03/17 22:43 07/03/17 22:43 07/03/17 22:43 07/03/17 22:43 07/03/17 22:43 GENERAL APPEARANCE: 32 -year-old male patient is alert, oriented x3 in no acute distress states just received pain medication which has helped reduce the pain discomfort in the abdomen. VITAL SIGNS: Reviewed HEENT: Head is normocephalic and atraumatic. Pupils are equal and reactive. The nares are patent. Oropharynx is clear without lesions. NECK: Supple without lymphadenopathy. Traches midline. HEART: S1, S2. Regular rate and rhythm. Denying chest pain no murmur noted LUNGS: No crackles or wheezes are heard. No cough noted no shortness of breath ABDOMEN: Soft, obese slight tenderness epigastric area nonradiating, nondistended with good bowel sounds. No peritoneal signs. No palpable organomegaly or masses. States not able to pass any gas no stool nausea sensation no active emesis EXTREMITIES: Normal skin color and turgor. No cyanosis, rash, ulceration, clubbing or edema. Radial pedal pulses are 2/4 bilaterally. NEUROLOGICAL: No focal deficits. Strength and sensation are grossly intact. Results - Labs 07/03/17 22:56 07/03/17 22:56 Abnormal Lab Results - Last 24 Hours (Table) 07/03/17 Range/Units 22:56 Carbon Dioxide 31 H (22-30) mmol/L Glucose 116 H (74-99) mg/dL Diabetes panel 07/03/17 Range/Units 22:56 Sodium 145 (137-145) mmol/L Potassium 4.5 (3.5-5.1) mmol/L Chloride 102 (98-107) mmol/L Carbon Dioxide 31 H (22-30) mmol/L BUN 12 (9-20) mg/dL Creatinine 1.00 (0.66-1.25) mg/dL Glucose 116 H (74-99) mg/dL Calcium 10.1 (8.4-10.2) mg/dL AST 23 (17-59) U/L ALT 35 (21-72) U/L Alkaline Phosphatase 81 (38-126) U/L Total Protein 7.2 (6.3-8.2) g/dL Albumin 4.6 (3.5-5.0) g/dL Calcium panel 07/03/17 Range/Units 22:56 Calcium 10.1 (8.4-10.2) mg/dL Albumin 4.6 (3.5-5.0) g/dL Pituitary panel 07/03/17 Range/Units 22:56 Sodium 145 (137-145) mmol/L Potassium 4.5 (3.5-5.1) mmol/L Chloride 102 (98-107) mmol/L Carbon Dioxide 31 H (22-30) mmol/L BUN 12 (9-20) mg/dL Creatinine 1.00 (0.66-1.25) mg/dL Glucose 116 H (74-99) mg/dL Calcium 10.1 (8.4-10.2) mg/dL Adrenal panel 07/03/17 Range/Units 22:56 Sodium 145 (137-145) mmol/L Potassium 4.5 (3.5-5.1) mmol/L Chloride 102 (98-107) mmol/L Carbon Dioxide 31 H (22-30) mmol/L BUN 12 (9-20) mg/dL Creatinine 1.00 (0.66-1.25) mg/dL Glucose 116 H (74-99) mg/dL Calcium 10.1 (8.4-10.2) mg/dL Total Bilirubin 0.5 (0.2-1.3) mg/dL AST 23 (17-59) U/L ALT 35 (21-72) U/L Alkaline Phosphatase 81 (38-126) U/L Total Protein 7.2 (6.3-8.2) g/dL Albumin 4.6 (3.5-5.0) g/dL Assessment and Plan Assessment: Impression Present on admission sudden onset acute epigastric discomfort suspect due to a proximal mechanical small bowel obstruction Status post chris-en-y gastric bypass 04/11/2016 lost over 100 pounds 04/05/2017 EGD showed a widely patent gastrojejunal anastomosis with no stricture noted Hypertension essential Of recent laparoscopic cholecystectomy 11/15/2016 History of morbid obesity due to excessive calories BMI down 43 from 45 Recent admission March 2017 acute epigastric pain suspect due to spontaneous large bowel obstruction Current every day smoker CAT scan abdomen pelvis no significant free air dilated jejunum consistent with proximal mechanical small bowel obstruction Plan Pain control IV fluid hydration as ordered Keep nothing by mouth Possible laparoscopic lysis of adhesions to be scheduled today by Dr. Be DVT and GI prophylaxis Repeat labs in the morning Further recommendations pending Surgical H&P dictated for Dr. Be The above impression and plan of care have been discussed and directed by signing physician. Annalisa Jade nurse practitioner acting as scribe for signing physician.
[2017-07-04 12:17] VITALS: RESP 18
[2017-07-04] MEDS ORDERED: ACETAMINOPHEN TAB 500 MG TAB PO PRN (13:18)
--- NOTE | 2017-07-04 13:52 | P.DS ---
Providers Date of admission: 07/04/17 01:03 Expected date of discharge: 07/04/17 Attending physician: Camila Lrema Primary care physician: [facility] Course: 32-year-old gentleman presented on the day of admission to the emergency room to be evaluated for chief complaint of developing upper abdominal pain bilateral discomfort. Patient stated that he had been experiencing cramping sensation after eating a small piece of steak. Patient stated 2 days prior he had been developing loose watery stools but this resolved. Patient was seen in the emergency room admitted to the services of the attending. Was started on a diet bariatric clear was tolerating it. Abdominal pain had resolved was tolerating diet plan was to discharge the patient home patient would be followed in the outpatient setting with Dr. Lerma. With the plan to return this per Dr. Shah does have a past surgical history of undergoing vy-en-y gastric bypass surgery at the end of [address] Lerma. Patient states that since the surgery he has lost over 100 pounds. was last hospitalized in April 052016 at that time was treated for abdominal pain midepigastric with a CAT scan of the abdomen pelvis consistent with a spontaneous large bowel obstruction. underwent an EGD at that admission which showed a widely patent gastrojejunal stenosis with no stricture noted. Patient states this discomfort he been experiencing felt similar to prior episode Impression Present on admission sudden onset acute epigastric discomfort suspect due to a proximal mechanical small bowel obstruction Status post vy-en-y gastric bypass 04/11/2016 lost over 100 pounds 04/05/2017 EGD showed a widely patent gastrojejunal anastomosis with no stricture noted Hypertension essential recent laparoscopic cholecystectomy 11/15/2016 History of morbid obesity due to excessive calories BMI down 43 from 45 Recent admission March 2017 acute epigastric pain suspect due to spontaneous large bowel obstruction Current every day smoker CAT scan abdomen pelvis no significant free air dilated jejunum consistent with proximal mechanical small bowel obstruction The above impression and plan of care have been discussed and directed by signing physician. Annalisa Jade nurse practitioner acting as scribe for signing physician. Patient Condition at Discharge: Serious Plan - Discharge Summary Discharge Rx Participant: No New Discharge Prescriptions: Continue Omeprazole [PriLOSEC] 40 mg PO DAILY #30 capsule. Acetaminophen Tab [Tylenol] 1,000 mg PO Q6HR PRN PRN Reason: Pain Discharge Medication List Omeprazole [PriLOSEC] 40 mg PO DAILY #30 capsule. 11/16/16 [Rx] Acetaminophen Tab [Tylenol] 1,000 mg PO Q6HR PRN 03/03/17 [History] Follow up Appointment(s)/Referral(s): Vishal Garrison DO [Primary Care Provider] - 1-2 days Camila Lerma MD [STAFF PHYSICIAN] - 07/06/17 Patient Instructions/Handouts: Bowel Obstruction (DC) Activity/Diet/Wound Care/Special Instructions: continue diet as tolerated Bariatric clear liquid diet activity as tolerated do not return to work until cleared by Dr. Lerma To return this as directed by Dr. lerma Discharge Disposition: HOME SELF-CARE
[2017-07-04 15:30] VITALS: BP 130/68; PULSE 44; TEMP 96.5
== END 2017-07-04 16:16 | disposition home or self-care (01) | DRG 390 ==
LOC: EC 22:36 → 3SUR 07-04 01:03 → 4MS4W 07-04 09:30
PROVIDERS: ADMIT Surgery Plastic and Reconstructive Surgery; ATTEND Surgery Plastic and Reconstructive Surgery
DX: K56.699 Other intestinal obstruction unspecified as to partial versus complete obstruction (principal); E78.00 Pure hypercholesterolemia, unspecified; F17.200 Nicotine dependence, unspecified, uncomplicated; I10 Essential (primary) hypertension; J45.909 Unspecified asthma, uncomplicated; K21.9 Gastro-esophageal reflux disease without esophagitis; Z79.899 Other long term (current) drug therapy; Z81.8 Family history of other mental and behavioral disorders; Z82.49 Family history of ischemic heart disease and other diseases of the circulatory system; Z82.5 Family history of asthma and other chronic lower respiratory diseases; Z82.62 Family history of osteoporosis; Z83.3 Family history of diabetes mellitus; Z87.11 Personal history of peptic ulcer disease; Z98.84 Bariatric surgery status; Z88.5 Allergy status to narcotic agent
CPT/HCPCS: 36415; 74177; 80053; 82150; 83690; 85025; 96361; 96374; 96375; 96376; 99285

== ENCOUNTER 2017-07-06 06:01 | Day surgery (SDC) | payer BC ==
[2017-07-05 13:27] VITALS: BMI 43.8
[2017-07-06] MEDS ORDERED: ceFAZolin 3 GM in SODIUM CHLORIDE 0.9% 100 ML IVPB STA (06:15)
[2017-07-06] MEDS ORDERED: PANTOPRAZOLE 40 MG/10 ML VIAL IV STA (06:15)
[2017-07-06] MEDS ORDERED: ACETAMINOPHEN IV (For NPO) 1,000 MG in EMPTY BAG 1 BAG IVPB STA (06:15)
[2017-07-06] MEDS ORDERED: HEPARIN SODIUM,PORCINE 5,000 UNIT/ML 1 ML VIAL SQ STA (06:18)
--- NOTE | 2017-07-06 06:20 | P.GSHP ---
History of Present Illness H&P Date: 07/06/17 CHIEF COMPLAINT: History of small bowel obstruction HISTORY OF PRESENT ILLNESS: The patient is a 32-year-old male who presents with history of abdominal pain and small bowel obstruction. He now presents for diagnostic laparoscopy including lysis of adhesions. PAST MEDICAL HISTORY: Please see list. PAST SURGICAL HISTORY: Please see list. MEDICATIONS: Please see list. ALLERGIES: Please see list. SOCIAL HISTORY: No illicit drug use FAMILY HISTORY: No reports of Crohn disease or ulcerative colitis. REVIEW OF ORGAN SYSTEMS: CONSTITUTIONAL: No reports of fevers or chills. GI: Denies any blood in stools or constipation. PHYSICAL EXAM: VITAL SIGNS: Stable GENERAL: Well-developed pleasant and in no acute distress. HEENT: No scleral icterus. Extraocular movements grossly intact. Moist buccal mucosa. NECK: Supple without lymphadenopathy. CHEST: Unlabored respirations. Equal bilateral excursions. CARDIOVASCULAR: Regular rate and rhythm. Distal 2+ pulses. ABDOMEN: Soft, diffuse abdominal tenderness. No peritonitis. MUSCULOSKELETAL: No clubbing, cyanosis, or edema. ASSESSMENT: 1. Diffuse abdominal pain. 2. History of small bowel obstruction. 3. Intra-abdominal adhesions. PLAN: 1. Diagnostic laparoscopy with lysis of adhesions were described in detail including risk of injury to the intestine, need for further surgery, and open technique. 2. DVT prophylaxis. 3. Antibiotic prophylaxis. Past Medical History Past Medical History: Asthma, GERD/Reflux, Hypertension Additional Past Medical History / Comment(s): recent bowel obstruction, gastric ulcer, past dysphagia after Chris-en-y surgery-none now, high cholesterol -not on rx yet, no longer on antihypertensives, past vit d definency History of Any Multi-Drug Resistant Organisms: None Reported Past Surgical History: Adenoidectomy, Bariatric Surgery, Cholecystectomy, Tonsillectomy Additional Past Surgical History / Comment(s): 04-11-16 CHRIS EN Y, EGDs, colonoscopy, frenulectomy. Past Anesthesia/Blood Transfusion Reactions: Motion Sickness Smoking Status: Current some day smoker - Past Family History Father Family Medical History: AFIB, Congestive Heart Failure (CHF), COPD, CVA/TIA, Diabetes Mellitus, Pulmonary Embolus Additional Family Medical History / Comment(s): at 57 from pulmonary embolism. Father had TIA. Mother Family Medical History: Diabetes Mellitus, Hypertension Additional Family Medical History / Comment(s): anxiety, depression, osteoporosis. Medications and Allergies Home Medications Medication Instructions Recorded Confirmed Type RX: Acetaminophen Tab [Tylenol] 1,000 mg PO Q6HR PRN 03/03/17 07/05/17 History Calcium(Unknown Dose) 1 tab PO DAILY 07/05/17 07/05/17 History Multivitamins, Thera [Multivitamin 1 tab PO DAILY 07/05/17 07/05/17 History (formulary)] RX: Omeprazole [PriLOSEC] 40 mg PO QAM 07/05/17 07/05/17 History Vitamin C(Unknown Dose) 1 tab PO DAILY 07/05/17 07/05/17 History Allergies Allergy/AdvReac Type Severity Reaction Status Date / Time morphine Allergy bradycardia Verified 07/05/17 13:23 of 40 ondansetron Allergy bradycardia Verified 07/05/17 13:23 [From Zofran (as of 40 hydrochloride)] ibuprofen AdvReac BYPASS Verified 07/05/17 13:23 SURGERY
[2017-07-06] MEDS ORDERED: LACTATED RINGERS 1,000 ML IV ONE (06:43)
[2017-07-06] MEDS ORDERED: DEXAMETHASONE SOD PHOS (MDV) 100 MG/10 ML VIAL IV ONE (07:10)
[2017-07-06] MEDS ORDERED: BUPIVACAINE (PF) 0.25% 30 ML VIAL SQ ONE (07:20)
[2017-07-06] MEDS ORDERED: NEOSTIGMINE 1 MG/ML 10 ML VIAL ONE (07:30)
[2017-07-06] MEDS ORDERED: PROPOFOL 10 MG/ML 20 ML VIAL IV ONE (07:30)
[2017-07-06] MEDS ORDERED: MIDAZOLAM 2 MG/2 ML VIAL ONE (07:30)
[2017-07-06] MEDS ORDERED: GLYCOPYRROLATE 0.2 MG/ML 2 ML VIAL ONE (07:30)
[2017-07-06] MEDS ORDERED: fentaNYL (PF) 50 MCG/ML 2 ML AMP ONE (07:30)
[2017-07-06] MEDS ORDERED: ROCURONIUM BROMIDE 10 MG/ML 10 ML VIAL IV ONE (07:30)
[2017-07-06] MEDS ORDERED: LIDOCAINE 1% INJ 10MG/ML (20 ML MDV) ONE (07:30)
[2017-07-06] MEDS ORDERED: SUCCINYLCHOLINE CHLORIDE 100 MG/5 ML SYR IV ONE (07:30)
[2017-07-06 08:16] VITALS: RESP 16
[2017-07-06 08:53] VITALS: TEMP 97.4
--- NOTE | 2017-07-06 08:57 | P.PCN ---
Date of Procedure: 07/06/17 Preoperative Diagnosis: Small bowel obstruction Postoperative Diagnosis: Same, internal hernia, small bowel volvulus, peritoneal adhesions Procedure(s) Performed: 1. Diagnostic laparoscopy 2. Laparoscopic Lysis of adhesions 3. Reduction of small bowel volvulus 4. Repair of internal hernia Anesthesia: GETA, local Surgeon: Camila Be Estimated Blood Loss (ml): 20 Pathology: none sent Condition: stable Disposition: same day Operative Findings: 1. Appendix retrocecal and extended to the right upper quadrant 2. No inguinal hernias 3. And identify left upper quadrant lysed 4. Internal hernia with small bowel volvulus involving jejunojejunostomy reduced and closed 5. Adherent hepatic flexure.
[2017-07-06] MEDS: HYDROmorphone 0.5 MG/0.5 ML SYRINGE IVP ONE ×4 (09:03→09:32)
[2017-07-06] MEDS ORDERED: METOCLOPRAMIDE 5 MG/ML 2 ML VIAL IVP ONE (10:49)
[2017-07-06 10:50] VITALS: BP 154/83; PULSE 54
--- NOTE | 2017-07-26 21:50 | P.OP ---
Date of Procedure: 07/06/17 Description of Procedure: Date of Procedure: 07/06/17 SURGEON: CAMILA BE MD COLLEGE TEACHER: None. PREOPERATIVE DIAGNOSES: 1. Small bowel obstruction. 2. History of gastric bypass. 3. Status post massive weight loss, 100+ pounds 4. Morbid obesity due to excess calories. 5. BMI reduced from over 68.3 to 43.9 6. History of tobacco abuse. POSTOPERATIVE DIAGNOSES: 1. Small bowel obstruction. 2. History of gastric bypass. 3. Status post massive weight loss, 100+ pounds 4. Morbid obesity due to excess calories. 5. BMI reduced from over 68.3 to 43.9 6. History of tobacco abuse. 7. Internal hernia at jejunojejunostomy. 8. Small bowel volvulus 9. Intra-abdominal adhesions PROCEDURES PERFORMED: 1. Diagnostic laparoscopy 2. Laparoscopic lysis of adhesions, over 30 minutes 3. Laparoscopic reduction of incarcerated small bowel volvulus from internal hernia, jejunojejunostomy mesenteric defect. 4. Laparoscopic repair of internal hernia at jejunojejunostomy mesenteric defect. ANESTHESIA: GETA, local ESTIMATED BLOOD LOSS: 20 mL. SPECIMENS REMOVED: None. COMPLICATIONS: None. Pathology: none sent Condition: stable Disposition: same day OPERATIVE FINDINGS: 1. Appendix retrocecal and extended to the right upper quadrant 2. No inguinal hernias 3. Peritoneal adhesions identified along the left upper quadrant lysed 4. Internal hernia with small bowel volvulus involving jejunojejunostomy reduced and closed 5. Adherent hepatic flexure. INDICATIONS: The patient is a 32-year-old male who presents with gastric bypass over 1 year ago. Presented with acute onset abdominal pain including bowel obstruction. Diagnostic laparoscopy with lysis of adhesions was described. Benefits and risks, including possibility of open technique were described at length. Informed consent was obtained. DESCRIPTION OF PROCEDURE: Patient was brought to the operating room, laid in supine position. After general induction, the abdomen was prepped and draped in standard sterile fashion. Prior to incision, a timeout protocol was confirmed with surgical team regarding patient's name including procedure to be performed. Preoperative medications including antibiotics were given. Additionally, bilateral SCDs including heparin was administered. A 5 mm laparoscopic trocar entry performed of the left upper quadrant after anesthetizing the skin with local anesthetic The abdomen was insufflated to 15 mmHg pressure he tolerated well. Diagnostic laparoscopy demonstrated a small omental adhesion to the abdominal wall at the epigastrium. Diffuse small bowel dilatation was encountered consistent with small bowel obstruction. Along the bilateral groins, no inguinal hernias were identified. Two 5-mm trocars were placed: one along the lower left lateral abdominal wall and the lateral abdominal wall. The base of the cecum was without inflammation. The appendix was unremarkable and retrocecal. The small bowel was investigated from the terminal ileum proximally. The small bowel involving the jejunum was in a volvulus involving the jejunojejunostomy mesenteric defect. The small bowel was reduced from the internal hernia. A large widely patent jejunojejunostomy mesenteric defect was confirmed. In anterograde fashion, the gastric pouch including Chris limb was investigated towards the jejunojejunostomy. No French's defect was identified. The left lower quadrant port was exchanged for an 11 mm port. An Endo Stitch using 2-0 silk and a Lapra-Ty was used to close both the the jejunojejunostomy mesenteric defect. The small bowel was re-investigated in a retrograde fashion as well as the antegrade fashion to confirm closure of all internal hernias including reduction of any small bowel volvulus. Final inspection of the abdomen demonstrated adequate hemostasis including no enterotomies. All instruments and pneumoperitoneum were evacuated from the abdominal cavity. All was infiltrated in all wounds for postop analgesia. The skin was cleansed with hydrogen peroxide. Dermabond was applied to the skin after reapproximating the incisions with 4-0 Monocryl as described. At the end of the procedure, needle, sponge, and instrument count was verified correct by ophthalmic surgical assistant. The patient had tolerated the procedure well, was taken to the postanesthesia care unit in stable condition. Intraoperative abdominal films were described and discussed with the family who were overall pleased with the level of care. Plan - Discharge Summary New Discharge Prescriptions: New HYDROcodone/APAP 5-325MG [[place] 5-325] 1 tab PO Q6HR PRN #20 tab PRN Reason: Pain No Action Acetaminophen Tab [Tylenol] 1,000 mg PO Q6HR PRN PRN Reason: Pain Omeprazole [PriLOSEC] 40 mg PO QAM Multivitamins, Thera [Multivitamin (formulary)] 1 tab PO DAILY Vitamin C(Unknown Dose) 1 tab PO DAILY Calcium(Unknown Dose) 1 tab PO DAILY HYDROcodone/APAP 7.5-325MG [P[place] 7.5-325] 1 tab PO Q6HR PRN #20 tab PRN Reason: Pain Metoclopramide [Reglan] 10 mg PO ACHS #30 tab Nystatin 100,000 Unit/gm Powd [Mycostatin Powder] 1 applic TOPICAL BID #60 powder Discharge Medication List Acetaminophen Tab [Tylenol] 1,000 mg PO Q6HR PRN 03/03/17 [History] Calcium(Unknown Dose) 1 tab PO DAILY 07/05/17 [History] Multivitamins, Thera [Multivitamin (formulary)] 1 tab PO DAILY 07/05/17 [History ] Omeprazole [PriLOSEC] 40 mg PO QAM 07/05/17 [History] Vitamin C(Unknown Dose) 1 tab PO DAILY 07/05/17 [History] HYDROcodone/APAP 5-325MG [P[place] 5-325] 1 tab PO Q6HR PRN #20 tab 07/06/17 [Rx] HYDROcodone/APAP 7.5-325MG [P[place] 7.5-325] 1 tab PO Q6HR PRN #20 tab 07/07/17 [ Rx] Metoclopramide [Reglan] 10 mg PO ACHS #30 tab 07/07/17 [Rx] Nystatin 100,000 Unit/gm Powd [Mycostatin Powder] 1 applic TOPICAL BID #60 powder 07/07/17 [Rx] Follow up Appointment(s)/Referral(s): Camila Be MD [STAFF PHYSICIAN] - 07/11/17 1:40 pm Patient Instructions/Handouts: *Surgery [facility] - (Anesthesia) Discharge Instructions Outpatient Surgery, Exploratory Laparoscopy (DC), Lysis of Abdominal Adhesions (DC) Activity/Diet/Wound Care/Special Instructions: NO Lifting over 4 pounds in 1 week. May shower. No bath tub soaks. Discharge Disposition: HOME SELF-CARE
== END 2017-07-06 11:13 | disposition home or self-care (01) ==
LOC: OR 06:01
PROVIDERS: ATTEND Surgery Plastic and Reconstructive Surgery
DX: K46.0 Unspecified abdominal hernia with obstruction, without gangrene (principal); K66.0 Peritoneal adhesions (postprocedural) (postinfection); K56.2 Volvulus; J45.909 Unspecified asthma, uncomplicated; K21.9 Gastro-esophageal reflux disease without esophagitis; K45.8 Other specified abdominal hernia without obstruction or gangrene; Z87.11 Personal history of peptic ulcer disease; I10 Essential (primary) hypertension; E78.00 Pure hypercholesterolemia, unspecified; E66.01 Morbid (severe) obesity due to excess calories; Z68.41 Body mass index [BMI] 40.0-44.9, adult; Z98.84 Bariatric surgery status; F17.210 Nicotine dependence, cigarettes, uncomplicated; Z79.899 Other long term (current) drug therapy; Z88.6 Allergy status to analgesic agent; Z88.5 Allergy status to narcotic agent; Z88.8 Allergy status to other drugs, medicaments and biological substances
CPT/HCPCS: 44050; J2250; J1644; J2710; J2765; J0690; J2001; J3010; J1100; J0131; J0330; J2704; C9113; J1170

== ENCOUNTER 2018-04-18 21:32 | Emergency (ER) | payer BC ==
[2018-04-18 21:45] LABS: Glucose,Whole Blood 141 mg/dL (75-99)
--- NOTE | 2018-04-18 21:59 | ED ---
General Adult HPI - General Chief complaint: Arrhythmia/Palpitations Stated complaint: Dizziness Time Seen by Provider: 04/18/18 21:37 Source: patient, EMS Mode of arrival: EMS Limitations: no limitations - History of Present Illness Initial comments: This patient's a 32-year-old man who presents to be evaluated after he was feeling lightheaded and felt like his heart was fluttering. Patient states that this is been going on for most of the day. He also checked his blood sugar and found that it was just above 300. Patient states that he has not been feeling right for number days, beginning with some cough and congestion. He felt like he wasn't keeping up well with his daily fluid intake and that this may be contributing. Onset/Timin -: days(s) Consistency: constant Improves with: none Worsens with: none Associated Symptoms: weakness - Related Data Home Medications Medication Instructions Recorded Confirmed Acetaminophen Tab [Tylenol] 1,000 mg PO Q6HR PRN 03/03/17 04/18/18 Multivitamins, Thera [Multivitamin 1 tab PO DAILY 07/05/17 04/18/18 (formulary)] Omeprazole [PriLOSEC] 40 mg PO QAM 07/05/17 04/18/18 Albuterol Inhaler [Ventolin Hfa 2 puff INHALATION RT-BID 04/18/18 04/18/18 Inhaler] Allergies Allergy/AdvReac Type Severity Reaction Status Date / Time morphine Allergy bradycardia Verified 04/18/18 22:07 of 40 ondansetron Allergy bradycardia Verified 04/18/18 22:07 [From Zofran (as of 40 hydrochloride)] ibuprofen AdvReac BYPASS Verified 04/18/18 22:07 SURGERY Review of Systems ROS Statement: Those systems with pertinent positive or pertinent negative responses have been documented in the HPI. ROS Other: All systems not noted in ROS Statement are negative. Constitutional: Reports: fever, weakness (Generalized). Denies: chills ENT: Reports: throat pain, congestion. Denies: ear pain Respiratory: Reports: cough. Denies: dyspnea, wheezes Cardiovascular: Reports: palpitations. Denies: chest pain, dyspnea on exertion , orthopnea, edema, syncope Endocrine: Reports: fatigue Gastrointestinal: Denies: abdominal pain, nausea, vomiting Genitourinary: Denies: dysuria Skin: Denies: rash Neurological: Denies: headache, weakness, numbness, paresthesias Past Medical History Past Medical History: Asthma, GERD/Reflux, Hypertension Additional Past Medical History / Comment(s): recent bowel obstruction, gastric ulcer, past dysphagia after Chris-en-y surgery-none now, high cholesterol -not on rx yet, no longer on antihypertensives, past vit d definency History of Any Multi-Drug Resistant Organisms: None Reported Past Surgical History: Adenoidectomy, Bariatric Surgery, Cholecystectomy, Tonsillectomy Additional Past Surgical History / Comment(s): 04-11-16 CHRIS EN Y, EGDs, colonoscopy, frenulectomy. Past Anesthesia/Blood Transfusion Reactions: Motion Sickness Past Psychological History: Depression Smoking Status: Current some day smoker Past Alcohol Use History: Occasional Past Drug Use History: None Reported - Past Family History Father Family Medical History: AFIB, Congestive Heart Failure (CHF), COPD, CVA/TIA, Diabetes Mellitus, Pulmonary Embolus Additional Family Medical History / Comment(s): at 57 from pulmonary embolism. Father had TIA. Mother Family Medical History: Diabetes Mellitus, Hypertension Additional Family Medical History / Comment(s): anxiety, depression, osteoporosis. General Exam Limitations: no limitations General appearance: alert, in no apparent distress, obese Head exam: Present: atraumatic, normocephalic Eye exam: Present: normal appearance. Absent: scleral icterus, conjunctival injection ENT exam: Present: normal oropharynx, mucous membranes dry Respiratory exam: Present: normal lung sounds bilaterally. Absent: respiratory distress, wheezes, rales, rhonchi, stridor Cardiovascular Exam: Present: regular rate, normal rhythm, normal heart sounds. Absent: systolic murmur, diastolic murmur, rubs, gallop GI/Abdominal exam: Present: soft. Absent: distended, tenderness, guarding, rebound, rigid, mass Extremities exam: Present: normal inspection, normal capillary refill. Absent: pedal edema, calf tenderness Back exam: Present: normal inspection Neurological exam: Present: alert Skin exam: Present: warm, dry, intact, normal color. Absent: rash Course Vital Signs 04/18/18 04/18/18 04/18/18 21:37 22:46 23:03 Temperature 99.8 F H 98.2 F Pulse Rate 89 92 Respiratory 20 19 Rate Blood Pressure 175/81 126/66 O2 Sat by Pulse 98 98 Oximetry EKG Findings - EKG Results: EKG: interpreted by ERMJazmine, WNL, sinus rhythm (There is a premature supraventricular complex. The rate is approximately 100.), normal axis, normal QRS, normal ST/T, no acute changes Medical Decision Making - Lab Data Result diagrams: 04/18/18 21:42 04/18/18 21:42 Lab Results 04/18/18 04/18/18 04/18/18 Range/Units 21:42 21:42 21:42 WBC 14.2 H (3.8-10.6) k/uL RBC 4.89 (4.30-5.90) m/uL Hgb 15.6 (13.0-17.5) gm/dL Hct 46.0 (39.0-53.0) % MCV 94.1 (80.0-100.0) fL MCH 31.9 (25.0-35.0) pg MCHC 33.9 (31.0-37.0) g/dL RDW 12.8 (11.5-15.5) % Plt Count 238 (150-450) k/uL Neutrophils % 80 % Lymphocytes % 12 % Monocytes % 4 % Eosinophils % 3 % Basophils % 0 % Neutrophils # 11.4 H (1.3-7.7) k/uL Lymphocytes # 1.7 (1.0-4.8) k/uL Monocytes # 0.6 (0-1.0) k/uL Eosinophils # 0.4 (0-0.7) k/uL Basophils # 0.1 (0-0.2) k/uL Sodium 141 (137-145) mmol/L Potassium 3.5 (3.5-5.1) mmol/L Chloride 109 H (98-107) mmol/L Carbon Dioxide 23 (22-30) mmol/L Anion Gap 9 mmol/L BUN 13 (9-20) mg/dL Creatinine 0.81 (0.66-1.25) mg/dL Est GFR (CKD-EPI)AfAm >90 (>60 ml/min/1.73 sqM) Est GFR (CKD-EPI)NonAf >90 (>60 ml/min/1.73 sqM) Glucose 125 H (74-99) mg/dL POC Glucose (mg/dL) 141 H (75-99) mg/dL POC Glu Electron Beam Welder Setter ID Vishal Negrete Calcium 9.6 (8.4-10.2) mg/dL Magnesium 2.0 (1.6-2.3) mg/dL Total Bilirubin 0.6 (0.2-1.3) mg/dL AST 24 (17-59) U/L ALT 30 (21-72) U/L Alkaline Phosphatase 72 (38-126) U/L Troponin I (0.000-0.034) ng/mL Total Protein 6.8 (6.3-8.2) g/dL Albumin 4.2 (3.5-5.0) g/dL 04/18/18 Range/Units 21:42 WBC (3.8-10.6) k/uL RBC (4.30-5.90) m/uL Hgb (13.0-17.5) gm/dL Hct (39.0-53.0) % MCV (80.0-100.0) fL MCH (25.0-35.0) pg MCHC (31.0-37.0) g/dL RDW (11.5-15.5) % Plt Count (150-450) k/uL Neutrophils % % Lymphocytes % % Monocytes % % Eosinophils % % Basophils % % Neutrophils # (1.3-7.7) k/uL Lymphocytes # (1.0-4.8) k/uL Monocytes # (0-1.0) k/uL Eosinophils # (0-0.7) k/uL Basophils # (0-0.2) k/uL Sodium (137-145) mmol/L Potassium (3.5-5.1) mmol/L Chloride (98-107) mmol/L Carbon Dioxide (22-30) mmol/L Anion Gap mmol/L BUN (9-20) mg/dL Creatinine (0.66-1.25) mg/dL Est GFR (CKD-EPI)AfAm (>60 ml/min/1.73 sqM) Est GFR (CKD-EPI)NonAf (>60 ml/min/1.73 sqM) Glucose (74-99) mg/dL POC Glucose (mg/dL) (75-99) mg/dL POC Glu Electron Beam Welder Setter ID Calcium (8.4-10.2) mg/dL Magnesium (1.6-2.3) mg/dL Total Bilirubin (0.2-1.3) mg/dL AST (17-59) U/L ALT (21-72) U/L Alkaline Phosphatase (38-126) U/L Troponin I <0.012 (0.000-0.034) ng/mL Total Protein (6.3-8.2) g/dL Albumin (3.5-5.0) g/dL Disposition Clinical Impression: Viral syndrome, Palpitations Disposition: HOME SELF-CARE Condition: Good Instructions: Heart Palpitations (ED), Viral Syndrome (ED) Is patient prescribed a controlled substance at d/c from ED?: No Referrals: Vishal Garrison DO [Primary Care Provider] - 1-2 days
[2018-04-18 22:47] VITALS: RESP 19
[2018-04-18 23:01] LABS: Basophils # (A) 0.1 k/uL (0-0.2); Basophils % (A) 0 %; Eosinophils # (A) 0.4 k/uL (0-0.7); Eosinophils % (A) 3 %; HGB 15.6 gm/dL (13.0-17.5); Lymphocytes # (A) 1.7 k/uL (1.0-4.8); Lymphocytes % (A) 12 %; MCH 31.9 pg (25.0-35.0); MCHC 33.9 g/dL (31.0-37.0); MCV 94.1 fL (80.0-100.0); Mean Platelet Volume 8.2; Monocytes # (A) 0.6 k/uL (0-1.0); Monocytes % (A) 4 %; Neutrophils # (A) 11.4 k/uL (1.3-7.7); Neutrophils % (A) 80 %; Platelet Count 238 k/uL (150-450); RBC 4.89 m/uL (4.30-5.90); RDW 12.8 % (11.5-15.5); WBC 14.2 k/uL (3.8-10.6)
[2018-04-18 23:02] VITALS: BP 126/66
--- NOTE | 2018-04-18 23:02 | XR ---
EXAMINATION TYPE: XR chest 2V DATE OF EXAM: 04/18/2018 COMPARISON: 11/12/2016 HISTORY: Irregular heart rate TECHNIQUE: Frontal and lateral views of the chest are obtained. FINDINGS: Heart and mediastinum are normal. Lungs are clear. Diaphragm is normal. Bony thorax is int act. IMPRESSION: Normal chest. No change.
[2018-04-18 23:03] VITALS: TEMP 98.2
[2018-04-18 23:13] LABS: ALT 30 U/L (21-72); AST 24 U/L (17-59); Albumin 4.2 g/dL (3.5-5.0); Alkaline Phosphatase 72 U/L (38-126); Anion Gap 9 mmol/L; Blood Urea Nitrogen 13 mg/dL (9-20); Calcium 9.6 mg/dL (8.4-10.2); Carbon Dioxide 23 mmol/L (22-30); Chloride 109 mmol/L (98-107); Glucose 125 mg/dL (74-99); Potassium 3.5 mmol/L (3.5-5.1); Sodium 141 mmol/L (137-145); Total Bilirubin 0.6 mg/dL (0.2-1.3); Total Protein 6.8 g/dL (6.3-8.2)
[2018-04-18] MEDS ORDERED: SODIUM CHLORIDE 0.9% 1,000 ML IV STA (23:35)
[2018-04-18 23:48] VITALS: PULSE 88
== END 2018-04-19 00:43 | disposition home or self-care (01) ==
LOC: EC 21:32
DX: B34.9 Viral infection, unspecified (principal); R00.2 Palpitations; R42 Dizziness and giddiness; J45.909 Unspecified asthma, uncomplicated; K21.9 Gastro-esophageal reflux disease without esophagitis; F17.200 Nicotine dependence, unspecified, uncomplicated; Z79.899 Other long term (current) drug therapy; Z88.5 Allergy status to narcotic agent; Z88.6 Allergy status to analgesic agent; Z88.8 Allergy status to other drugs, medicaments and biological substances
CPT/HCPCS: 36415; 71046; 80053; 83735; 84484; 85025; 93005; 96360; 99285

== ENCOUNTER → 2018-04-25 | Outpatient (CLI) | payer BC ==
[2018-04-25 14:28] LABS: Basophils # (A) 0.1 k/uL (0-0.2); Basophils % (A) 1 %; Eosinophils # (A) 0.5 k/uL (0-0.7); Eosinophils % (A) 5 %; HCT 47.6 % (39.0-53.0); HGB 16.2 gm/dL (13.0-17.5); Lymphocytes # (A) 2.3 k/uL (1.0-4.8); Lymphocytes % (A) 25 %; MCH 31.6 pg (25.0-35.0); MCV 93.1 fL (80.0-100.0); Mean Platelet Volume 7.9; Monocytes # (A) 0.4 k/uL (0-1.0); Monocytes % (A) 4 %; Neutrophils # (A) 5.8 k/uL (1.3-7.7); Neutrophils % (A) 62 %; Platelet Count 296 k/uL (150-450); RBC 5.11 m/uL (4.30-5.90); RDW 12.5 % (11.5-15.5); WBC 9.3 k/uL (3.8-10.6)
[2018-04-25 14:52] LABS: ALT 33 U/L (21-72); AST 22 U/L (17-59); Albumin 4.2 g/dL (3.5-5.0); Alkaline Phosphatase 82 U/L (38-126); Anion Gap 7 mmol/L; Blood Urea Nitrogen 14 mg/dL (9-20); Calcium 9.7 mg/dL (8.4-10.2); Carbon Dioxide 27 mmol/L (22-30); Chloride 108 mmol/L (98-107); Glucose 74 mg/dL (74-99); Potassium 4.3 mmol/L (3.5-5.1); Sodium 142 mmol/L (137-145); Total Bilirubin 0.4 mg/dL (0.2-1.3); Total Protein 6.9 g/dL (6.3-8.2)
--- NOTE | 2018-04-25 14:56 | US ---
EXAMINATION TYPE: US scrotum with doppler. Grayscale and color Doppler Duplex imaging performed of t brittaney scrotum. DATE OF EXAM: 04/25/2018 COMPARISON: 03/03/2017 CLINICAL HISTORY: N50.819 Testicular pain, unspecified. follow up to scan 1 year prior EXAM MEASUREMENTS: TESTICLES: Right Testicle: 4.7 x 3.5 x 2.5 cm Left Testicle: 4.4 x 2.9 x 2.0 cm EPIDIDYMIS HEAD: Right Epididymis: 1.0 cm Left Epididymis: 1.2 cm Doppler performed to assess for testicular vascularity; good bilateral color flow and waveforms are s een. There is no evidence of testicular torsion. Presence of hydroceles: mild lateral left Presence of varicoceles: multiple vessels seen laterally but do not believe they are varicose Multiple calcifications seen bilaterally IMPRESSION: 1.Bilateral testicular microlithiasis. Some consider annual imaging surveillance as there is increase d risk for neoplasm. 2. Bilateral varicoceles. 3. Small left hydrocele.
[2018-04-25 20:56] LABS: Hemoglobin A1C 5.1 % (4.0-6.0)
== END ==
LOC: RADUSWWP 13:28
PROVIDERS: ATTEND Family Medicine
DX: N50.89 Other specified disorders of the male genital organs (principal); I86.1 Scrotal varices; N43.3 Hydrocele, unspecified; Z00.00 Encounter for general adult medical examination without abnormal findings; E66.01 Morbid (severe) obesity due to excess calories
CPT/HCPCS: 36415; 76870; 80053; 82306; 83036; 84443; 85025; 93975

== ENCOUNTER → 2020-08-17 | Outpatient (CLI) | payer BC | END | disposition home or self-care (01) | LOC: LABMAIN 01:48 | PROVIDERS: ATTEND Physician Assistant Medical | DX: Z20.822 Contact with and (suspected) exposure to COVID-19 (principal) | CPT/HCPCS: 87635 ==

== ENCOUNTER 2021-07-05 07:38 | Emergency (ER) | payer BC ==
[2021-07-05 07:49] VITALS: BP 201/94; PULSE 94; RESP 20; TEMP 98
[2021-07-05] MEDS ORDERED: KETOROLAC 15 MG/ML 1 ML VIAL IM STA (08:03)
--- NOTE | 2021-07-05 08:08 | ED ---
General Adult HPI - General Chief complaint: Extremity Injury, Lower Stated complaint: R knee pain Time Seen by Provider: 07/05/21 07:53 Source: patient, RN notes reviewed Mode of arrival: ambulatory Limitations: no limitations - History of Present Illness Initial comments: Patient is a pleasant 36-year-old male presenting to the emergency department fo llowing right injury. Injury occurred yesterday while taking a stutter step while playing dodgeball. Patient felt a sudden snap/pop. During this patient had discomfort. Patient has felt rice crispy-like sensation when he is trying to walk. Walking is extremely uncomfortable. Patient did try to play a second game however was unable to. No other area of injury or concern. No chronic knee problems. Patient did have previous laceration many years ago to the anterior knee. - Related Data Home Medications Medication Instructions Recorded Confirmed Acetaminophen Tab [Tylenol] 1,000 mg PO Q6HR PRN 03/03/17 07/05/21 Allergies Allergy/AdvReac Type Severity Reaction Status Date / Time morphine Allergy bradycardia Verified 07/05/21 08:39 of 40 ondansetron Allergy bradycardia Verified 07/05/21 08:39 [From Zofran (as of 40 hydrochloride)] ibuprofen AdvReac BYPASS Verified 07/05/21 08:39 SURGERY Review of Systems ROS Statement: Those systems with pertinent positive or pertinent negative responses have been documented in the HPI. ROS Other: All systems not noted in ROS Statement are negative. Constitutional: Denies: fever Eyes: Denies: eye pain ENT: Denies: ear pain Respiratory: Denies: cough Cardiovascular: Denies: chest pain Endocrine: Denies: fatigue Gastrointestinal: Denies: abdominal pain Genitourinary: Denies: dysuria Musculoskeletal: Reports: as per HPI. Denies: back pain Skin: Denies: rash Neurological: Denies: headache Past Medical History Past Medical History: Asthma, GERD/Reflux, Hypertension Additional Past Medical History / Comment(s): recent bowel obstruction, gastric ulcer, past dysphagia after Tristian-en-y surgery-none now, high cholesterol -not on rx yet, no longer on antihypertensives, past vit d definency History of Any Multi-Drug Resistant Organisms: None Reported Past Surgical History: Adenoidectomy, Bariatric Surgery, Cholecystectomy, Tonsillectomy Additional Past Surgical History / Comment(s): 11-14-16 TRISTIAN EN Y, EGDs, colonoscopy, frenulectomy. Past Anesthesia/Blood Transfusion Reactions: Motion Sickness Past Psychological History: Depression Smoking Status: Current every day smoker Past Alcohol Use History: Occasional Past Drug Use History: None Reported - Past Family History Father Family Medical History: AFIB, Congestive Heart Failure (CHF), COPD, CVA/TIA, Diabetes Mellitus, Pulmonary Embolus Additional Family Medical History / Comment(s): at 57 from pulmonary embolism. Father had TIA. Mother Family Medical History: Diabetes Mellitus, Hypertension Additional Family Medical History / Comment(s): anxiety, depression, osteoporosis. General Exam Limitations: no limitations General appearance: alert, in no apparent distress Head exam: Present: normocephalic Eye exam: Present: normal appearance Neck exam: Present: normal inspection Respiratory exam: Present: normal lung sounds bilaterally Cardiovascular Exam: Present: regular rate, normal rhythm Expanded Peripheral pulses: 2+: Posterior Tibialis (R) GI/Abdominal exam: Present: soft. Absent: tenderness Extremities exam: Present: tenderness (Tenderness in the area of the medial meniscus), other (Stable. No laxity with testing) Right Knee exam: Present: tenderness. Absent: deformity, pain w/ pronation/supination, pain/laxity with valgus, pain/laxity with varus Neurological exam: Present: alert. Absent: motor sensory deficit Psychiatric exam: Present: normal affect, normal mood Skin exam: Present: normal color Course Vital Signs 07/05/21 07:47 Temperature 98 F Pulse Rate 94 Respiratory 20 Rate Blood Pressure 201/94 O2 Sat by Pulse 98 Oximetry Medical Decision Making - Medical Decision Making Patient reevaluated and updated. Kurt wrap placed by nursing staff. - Radiology Data Radiology results: image reviewed (X-ray shows no acute process) Disposition Clinical Impression: Right knee sprain Disposition: HOME SELF-CARE Condition: Stable Instructions (If sedation given, give patient instructions): Knee Pain (ED) Additional Instructions: Please do follow-up with orthopedics in the next couple days for recheck, further evaluation and possible further work restrictions. Prescription written for knee brace. Ice to affected area. [id number] Tylenol as needed. Return for increased pain, swelling, worsening symptoms or other concerns. Is patient prescribed a controlled substance at d/c from ED?: No Referrals: Vishal Garrison DO [Primary Care Provider] - 1-2 days [place], ABIDA [PHYSICIAN PIE CHEF] - 1-2 days Time of Disposition: 09:07
--- NOTE | 2021-07-05 08:37 | XR ---
EXAMINATION TYPE: XR knee complete RT DATE OF EXAM: 07/05/2021 CLINICAL HISTORY: pain TECHNIQUE: Three views of the right knee are obtained. COMPARISON: None. FINDINGS: There is no acute fracture/dislocation. The tri-compartment joint spaces appear within no rmal limits. The overlying soft tissue appears unremarkable. IMPRESSION: There is no acute fracture or dislocation.ICD 10 NO FRACTURE, INITIAL EVALUATION
[2021-07-05] MEDS ORDERED: traMADol 50 MG STARTER PACK 3 TAB BTL PO STA (09:08)
== END 2021-07-05 09:44 | disposition home or self-care (01) ==
LOC: EC 07:38
DX: S83.91XA Sprain of unspecified site of right knee, initial encounter (principal); J45.909 Unspecified asthma, uncomplicated; I10 Essential (primary) hypertension; F17.200 Nicotine dependence, unspecified, uncomplicated; Z88.6 Allergy status to analgesic agent; Z88.8 Allergy status to other drugs, medicaments and biological substances; W22.8XXA Striking against or struck by other objects, initial encounter
CPT/HCPCS: 73562; 99283; 96372; J1885

== ENCOUNTER → 2023-05-13 | Outpatient (CLI) | payer BC ==
[2023-05-13 23:09] LABS: Basophils # (A) 0.06 X 10*3/uL (0.00-0.10); Eosinophils # (A) 0.24 X 10*3/uL (0.04-0.35); Eosinophils % (A) 3.8 %; HCT 46.5 % (39.6-50.0); Lymphocytes # (A) 2.18 X 10*3/uL (0.90-5.00); Lymphocytes % (A) 34.7 %; MCH 29.9 pg (27.0-32.0); MCHC 32.3 g/dL (32.0-37.0); MCV 92.6 FL (80.0-97.0); Mean Platelet Volume 11.6 FL (9.5-12.2); Monocytes # (A) 0.47 X 10*3/uL (0.20-1.00); Monocytes % (A) 7.5 %; NRBC Per 100 WBC 0 X 10*3/uL (0.00-0.01); Neutrophils # (A) 3.31 X 10*3/uL (1.80-7.70); Neutrophils % (A) 52.7 %; Platelet Count 267 X 10*3/uL (140-440); RBC 5.02 X 10*6/uL (4.40-5.60); WBC 6.28 X 10*3/uL (4.50-10.00)
[2023-05-14 12:54] LABS: ALT 34 U/L (10-49); AST 18 U/L (14-35); Albumin 4.2 g/dL (3.8-4.9); Alkaline Phosphatase 95 U/L (41-126); BUN/Creat Ratio 14.12 Ratio (12.00-20.00); Blood Urea Nitrogen 11.3 mg/dL (9.0-27.0); Calcium 9.7 mg/dL (8.7-10.3); Chloride 106 mmol/L (96-109); Chol/HDL Ratio 3.73 Ratio; Globulin 2.1 g/dL (1.6-3.3); Glucose 95 mg/dL (70-110); LDL Cholesterol,Calculated 85.5 mg/dL (0.0-131.0); Potassium 4.6 mmol/L (3.5-5.5); Sodium 144 mmol/L (135-145); Total Bilirubin 0.3 mg/dL (0.3-1.2); Total Protein 6.3 g/dL (6.2-8.2); VLDL Calculation 19.16 mg/dL (5.00-40.00)
[2023-05-14 14:26] LABS: Appearance,Urine Clear (Clear); Bilirubin,Urine Negative (Negative); Blood,Urine Negative (Negative); Color,Urine Yellow (Yellow); Ketones,Urine Negative (Negative); Nitrite,Urine Negative (Negative); Specific Gravity,Urine 1.019 (1.001-1.030)
== END | disposition home or self-care (01) ==
LOC: LABWHC1 11:28
PROVIDERS: ATTEND Family Medicine
DX: I10 Essential (primary) hypertension (principal); E78.5 Hyperlipidemia, unspecified
CPT/HCPCS: 36415; 80053; 80061; 81003; 83036; 84443; 85025

== ENCOUNTER 2023-08-10 14:14 | Emergency (ER) | payer BC, OTHER ==
[2023-08-10 14:40] VITALS: RESP 18
[2023-08-10] MEDS: ACETAMINOPHEN TAB 500 MG TAB PO STA (15:00)
[2023-08-10] MEDS: KETOROLAC 15 MG/ML 1 ML VIAL IM STA (15:01)
[2023-08-10] MEDS: LIDOCAINE 4% PATCH TOPICAL ONE (15:02)
--- NOTE | 2023-08-10 15:32 | ED ---
General Adult HPI - General Chief complaint: Back Pain/Injury Stated complaint: Lower Back Pain Time Seen by Provider: 08/10/23 14:22 Source: patient, RN notes reviewed Mode of arrival: ambulatory Limitations: no limitations - History of Present Illness Initial comments: 38-year-old male presents to the emergency department for evaluation of low back pain. 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 He states that when he bends over and stands back up he notices the pain. At rest he feels that it is just a pressure in his low back. He does state that he has had this in the past about 10 years ago. He states that he had a CT at that time with no significant abnormality. He denies any loss of bowel or bladder function, saddle anesthesia, urinary retention, fever. - Related Data Home Medications Medication Instructions Recorded Confirmed Acetaminophen Tab [Tylenol] 1,000 mg PO Q6HR PRN 03/03/17 07/05/21 Previous Rx's Medication Instructions Recorded Acetaminophen-Codeine 300-30mg 1 tab PO Q6H PRN 3 Days #12 tablet 08/10/23 [Tylenol w/codeine #3] Cyclobenzaprine [Flexeril] 5 mg PO TID PRN #15 tablet 08/10/23 Lidocaine 5% Patch [Lidoderm 5% 1 patch TOPICAL DAILY #30 patch 08/10/23 Patch] Allergies Allergy/AdvReac Type Severity Reaction Status Date / Time morphine Allergy bradycardia Verified 08/10/23 14:18 of 40 ondansetron Allergy bradycardia Verified 08/10/23 14:18 [From Zofran (as of 40 hydrochloride)] ibuprofen AdvReac BYPASS Verified 08/10/23 14:18 SURGERY Review of Systems ROS Statement: Those systems with pertinent positive or pertinent negative responses have been documented in the HPI. ROS Other: All systems not noted in ROS Statement are negative. Past Medical History Past Medical History: Asthma, GERD/Reflux, Hypertension Additional Past Medical History / Comment(s): recent bowel obstruction, gastric ulcer, past dysphagia after Chris-en-y surgery-none now, high cholesterol -not on rx yet, no longer on antihypertensives, past vit d definency History of Any Multi-Drug Resistant Organisms: None Reported Past Surgical History: Adenoidectomy, Bariatric Surgery, Cholecystectomy, Tonsillectomy Additional Past Surgical History / Comment(s): 04-11-16 CHRIS EN Y, EGDs, colonoscopy, frenulectomy. Past Anesthesia/Blood Transfusion Reactions: Motion Sickness Past Psychological History: Depression Smoking Status: Current every day smoker Past Alcohol Use History: Occasional Past Drug Use History: None Reported - Past Family History Father Family Medical History: AFIB, Congestive Heart Failure (CHF), COPD, CVA/TIA, Diabetes Mellitus, Pulmonary Embolus Additional Family Medical History / Comment(s): at 57 from pulmonary embolism. Father had TIA. Mother Family Medical History: Diabetes Mellitus, Hypertension Additional Family Medical History / Comment(s): anxiety, depression, osteoporosis. General Exam Limitations: no limitations General appearance: alert, in no apparent distress Head exam: Present: atraumatic, normocephalic, normal inspection Eye exam: Present: normal appearance, PERRL, EOMI. Absent: scleral icterus, conjunctival injection, periorbital swelling ENT exam: Present: normal exam, mucous membranes moist Neck exam: Present: normal inspection. Absent: tenderness, meningismus, lymphadenopathy Respiratory exam: Present: normal lung sounds bilaterally. Absent: respiratory distress, wheezes, rales, rhonchi, stridor Cardiovascular Exam: Present: regular rate, normal rhythm, normal heart sounds. Absent: systolic murmur, diastolic murmur, rubs, gallop, clicks GI/Abdominal exam: Present: soft. Absent: distended, tenderness Extremities exam: Present: normal inspection, full ROM, normal capillary refill, other (PT pulses 2+). Absent: tenderness, pedal edema, joint swelling, calf tenderness Back exam: Present: normal inspection, tenderness. Absent: CVA tenderness (R), CVA tenderness (L) Neurological exam: Present: alert, oriented X3 Psychiatric exam: Present: normal affect, normal mood Skin exam: Present: warm, dry, intact, normal color. Absent: rash Course Vital Signs 08/10/23 08/10/23 14:15 16:44 Temperature 98.3 F 98.1 F Pulse Rate 90 77 Respiratory 18 18 Rate Blood Pressure 163/93 155/78 O2 Sat by Pulse 97 98 Oximetry Medical Decision Making - Medical Decision Making Was pt. sent in by a medical professional or institution (, PA, [employer], urgent care, hospital, or retirement...) When possible be specific @ -No Did you speak to anyone other than the patient for history (EMS, parent, family, police, friend...)? What history was obtained from this source @ -No Did you review nursing and triage notes (agree or disagree)? Why? @ -I reviewed and agree with nursing and triage notes Were old charts reviewed (outside hosp., previous admission, EMS record, old EKG, old radiological studies, urgent care reports/EKG's, retirement records)? Report findings @ -No old charts were reviewed Differential Diagnosis (chest pain, altered mental status, abdominal pain women, abdominal pain men, vaginal bleeding, weakness, fever, dyspnea, syncope, headache, dizziness, GI bleed, back pain, seizure, CVA, palpatations, mental health, musculoskeletal)? @ -Differential Back Pain: Strain, zoster, cauda equina syndrome, epidural abscess, vertebral osteomyelitis, discitis, fracture, subluxation, disc herniation, DJD, spinal stenosis, dissection, AAA, pancreatitis, peptic ulcer disease, pyelonephritis, kidney stone, this is not meant to be an all-inclusive list. EKG interpreted by me (3pts min.). @ -none X-rays interpreted by me (1pt min.). @ -X-ray lumbar spine obtained which shows mild degenerative disc disease, no acute fracture e CT interpreted by me (1pt min.). @ -None done U/S interpreted by me (1pt. min.). @ -None done What testing was considered but not performed or refused? (CT, X-rays, U/S, labs)? Why? @ -None What meds were considered but not given or refused? Why? @ -None Did you discuss the management of the patient with other professionals (professionals i.e. , PA, [employer], lab, RT, psych nurse, director social service, nursing faculty, teacher, precinct commanding officer, manager case)? Give summary @ -No Was smoking cessation discussed for >3mins.? @ -No Was critical care preformed (if so, how long)? @ -No Were there social determinants of health that impacted care today? How? (Homelessness, low income, unemployed, alcoholism, drug addiction, rees sportation, low edu. Level, literacy, decrease access to med. care, detention, rehab)? @ -No Was there de-escalation of care discussed even if they declined (Discuss DNR or withdrawal of care, Hospice)? DNR status @ -No What co-morbidities impacted this encounter? (DM, HTN, Smoking, COPD, CAD, Cancer, CVA, ARF, Chemo, Hep., AIDS, mental health diagnosis, sleep apnea, morbid obesity)? @ -None Was patient admitted / discharged? Hospital course, mention meds given and route, prescriptions, significant lab abnormalities, going to OR and other pertinent info. @ -Discharge. Patient presented to the emergency department for evaluation of low back pain following a work incident. X-rays obtained which showed no acute fracture. The patient has no red flag symptoms at this time. Patient provided a dose of IM Toradol in the emergency department which improved his symptoms slightly. Advised patient on findings of x-rays. Patient will be discharged home. Prescription sent to patient's pharmacy for 3 days worth of Tylenol 3, lidocaine patches, Flexeril. Patient will be discharged home. Patient understanding agreeable plan. Patient stable at time of discharge. Case discussed with Dr. Miller Undiagnosed new problem with uncertain prognosis? @ -No Drug Therapy requiring intensive monitoring for toxicity (Heparin, Nitro, Insulin, Cardizem)? @ -No Were any procedures done? @ -No Diagnosis/symptom? @ -Back strain Acute, or Chronic, or Acute on Chronic? @ -Acute Uncomplicated (without systemic symptoms) or Complicated (systemic symptoms)? @ -Uncomplicated Side effects of treatment? @ -No Exacerbation, Progression, or Severe Exacerbation? @ -No Poses a threat to life or bodily function? How? (Chest pain, [place], [place], pneumonia, PE, COPD, DKA, ARF, appy, cholecystitis, CVA, Diverticulitis, Homicidal, Suicidal, threat to staff... and all critical care pts) @ -No Disposition Clinical Impression: Mechanical back pain Disposition: HOME SELF-CARE Condition: Stable Instructions (If sedation given, give patient instructions): Acute Low Back Pain (ED) Additional Instructions: Please follow up with your primary care provider. Return to the emergency department for new or worsening symptoms. Prescriptions: Cyclobenzaprine [Flexeril] 5 mg PO TID PRN #15 tablet PRN Reason: Muscle Spasm Lidocaine 5% Patch [Lidoderm 5% Patch] 1 patch TOPICAL DAILY #30 patch Acetaminophen-Codeine 300-30mg [Tylenol w/codeine #3] 1 tab PO Q6H PRN 3 Days #12 tablet PRN Reason: Pain Is patient prescribed a controlled substance at d/c from ED?: No Referrals: Vishal Garrison DO [Primary Care Provider] - 1-2 days
--- NOTE | 2023-08-10 15:34 | XR ---
EXAMINATION TYPE: XR lumbosacral spine min 4V DATE OF EXAM: 08/10/2023 3:22 PM CLINICAL INDICATION:Male, 38 years old with history of pain; COMPARISON: None TECHNIQUE: XR lumbosacral spine min 4V - Frontal, lateral , bilateral oblique and coned in L5-S1 late ral views of the spine. FINDINGS: No evidence of any acute osseous pathology. No evidence of loss of vertebral body height i s seen. There is normal alignment of the lumbar vertebral bodies. Mild osteophyte formation of the ve rtebral bodies minimal facet arthropathy. Findings most pronounced at T12-L1. IMPRESSION: 1. No acute fracture. 2. Mild disc degeneration.
[2023-08-10 16:58] VITALS: BP 155/78; PULSE 77; TEMP 98.1
== END 2023-08-10 16:44 | disposition home or self-care (01) ==
LOC: EC 14:14
DX: M54.50 Low back pain, unspecified (principal); F17.200 Nicotine dependence, unspecified, uncomplicated; Z88.6 Allergy status to analgesic agent; Z88.8 Allergy status to other drugs, medicaments and biological substances; Z88.5 Allergy status to narcotic agent; Z90.49 Acquired absence of other specified parts of digestive tract
CPT/HCPCS: 72110; 99283; 96372; J1885

== ENCOUNTER → 2023-10-12 | Outpatient (CLI) | payer BC ==
--- NOTE | 2023-10-12 13:50 | P.SLEEP ---
History of Present Illness DATE: 10/12/2023 CONSULTATION/NEW PATIENT EVALUATION HISTORY OF PRESENT ILLNESS/SLEEP-WAKE EVALUATION: 38-year-old gentleman had b een evaluated in the sleep center for possible obstructive sleep apnea hypopnea syndrome. Patient has history of obstructive sleep apnea hypopnea syndrome diagnosed in our institution in 2015. At that time he had severe sleep apnea with apnea hypopnea index 48.9. He was treated with CPAP but then he had gastric bypass surgery in 2017, lost around 140 pounds and stopped using CPAP. At that time his weight was around 280. For last years patient increased his weight again up to 370 pounds and again developed symptoms of sleep apnea. SLEEP SCHEDULE: Usually sleep schedule from 11 PM to 4:30 AM on weekdays and from midnight until 7 AM on weekend. FALLING ASLEEP: Sometimes patient has difficulties with falling asleep. DURING SLEEP: Patient snores and has episodes of stop breathing during the sleep, has multiple awakenings from sleep with dry mouth, episodes of palpitations. No history of hypnogogical hallucinations, sleep paralysis, or cataplexy. DURING THE DAY/WAKE STATE: In the morning patient wake up tired, has difficulties to pay attention, has problems with memory, concentration, irritability, anxiety and depression.. [place] sleepiness scale is significantly increased to 13. Patient takes 2 naps during the day at 11 AM and 6 PM. PAST MEDICAL HISTORY: Asthma, hypertension. PAST SURGICAL HISTORY: Gastric bypass 2017, cholecystectomy, abdominal hernia repair. MEDICATIONS: Please see below. SOCIAL HISTORY: Please see below. FAMILY HISTORY: Please see below. REVIEW OF SYSTEMS: Snoring, multiple awakenings from sleep, sleepiness during the day. No fevers. No double vision. No recent chest pain. No shortness of breath. No abdominal pain. No bleeding episodes. No blood in urine. No seizure episodes. PHYSICAL EXAMINATION: GENERAL: A pleasant patient without any distress. VITAL SIGNS: Please see below, weight 370 pounds, BMI 57. HEENT: PERRLA, EOMI. Evaluation of oropharynx showed tongue protrudes midline, low position of soft palate Mallampati 4. NECK: Supple. No JVD. Thyroid is not palpable. 17.5 inches in circumference. LUNGS: Clear to percussion and to auscultation. Good air exchange. No wheezing or rhonchi. HEART: S1, S2 regular. No murmurs, gallops or rubs. ABDOMEN: Soft and nontender. Bowel sounds are present. No organomegaly appreciated. EXTREMITIES: No clubbing or cyanosis. SWITCH REPAIRER: Awake, alert, and oriented x3. Cranial nerves 2 to 7 intact. There is no fasciculation or atrophy noted. No focal deficits observed. ASSESSMENT: 1. Snoring, awakenings from sleep, extremely low position of soft palate Mallampati 4, wide neck 17.5 inches in circumference, sleepiness with [place] Sleepiness Scale 13. Obstructive sleep apnea hypopnea syndrome. 2. Morbid obesity, BMI 57. 3. History of asthma. 4. History of hypertension. 5 status post gastric bypass surgery in 2017. 6 . Status post tonsillectomy and adenoidectomy. 7. Status post cholecystectomy. 8. Status post abdominal hernia repair. PLAN: 1. Polysomnography for evaluation of patient's breathing during sleep. 2. Following plan after reading sleep study. 3. Preferable position during sleep on the side. 4. No driving if patient feels any sleepiness. Patient is aware of civil and criminal liability for unsafe driving. 5. Sleep hygiene with regular sleep time for at least 7.5-8 hours. 6. Watching and losing weight. Thank you very much for referring this patient for consultation. Sincerely, Carlos Butler MD, PhD, FAASM. Diplomat of [place] [employer], Sleep Medicine Board by [place] [employer] [place] [employer] Installer of [facility] Past Medical History Past Medical History: Asthma, GERD/Reflux, Hypertension Additional Past Medical History / Comment(s): recent bowel obstruction, gastric ulcer, past dysphagia after Chris-en-y surgery-none now, high cholesterol -not on rx yet, no longer on antihypertensives, past vit d definency History of Any Multi-Drug Resistant Organisms: None Reported Past Surgical History: Adenoidectomy, Bariatric Surgery, Cholecystectomy, Tonsillectomy Additional Past Surgical History / Comment(s): 04-11-16 CHRIS EN Y, EGDs, colonoscopy, frenulectomy. Past Anesthesia/Blood Transfusion Reactions: Motion Sickness Past Psychological History: Depression Additional Psychological History / Comment(s): Pt states he had depression as a teen and was quit severe, had suicidal ideations at that time but none since. Pt resides with his spouse and their 2 children. They have a dog. He works for [employer]. Smoking Status: Current every day smoker Past Alcohol Use History: Occasional Additional Past Alcohol Use History / Comment(s): Pt states he smokes occasionally, about 15 cigarettes a week since 2004. He drinks occasionally. Past Drug Use History: None Reported - Past Family History Father Family Medical History: AFIB, Congestive Heart Failure (CHF), COPD, CVA/TIA, Diabetes Mellitus, Pulmonary Embolus Additional Family Medical History / Comment(s): at 57 from pulmonary embolism. Father had TIA. Mother Family Medical History: Diabetes Mellitus, Hypertension Additional Family Medical History / Comment(s): anxiety, depression, osteoporosis. Medications and Allergies Home Medications Medication Instructions Recorded Confirmed Type Acetaminophen Tab [Tylenol] 1,000 mg PO Q6HR PRN 03/03/17 07/05/21 History Acetaminophen-Codeine 300-30mg 1 tab PO Q6H PRN 3 Days #12 tablet 08/10/23 Rx [Tylenol w/codeine #3] Cyclobenzaprine [Flexeril] 5 mg PO TID PRN #15 tablet 08/10/23 Rx Lidocaine 5% Patch [Lidoderm 5% 1 patch TOPICAL DAILY #30 patch 08/10/23 Rx Patch] Allergies Allergy/AdvReac Type Severity Reaction Status Date / Time morphine Allergy bradycardia Verified 08/10/23 14:18 of 40 ondansetron Allergy bradycardia Verified 08/10/23 14:18 [From Zofran (as of 40 hydrochloride)] ibuprofen AdvReac BYPASS Verified 08/10/23 14:18 SURGERY Physical Exam Vitals: Vital Signs Temp Pulse Resp BP Pulse Ox 10/12/23 13:18 97.8 F 88 16 142/85 96 Intake and Output 10/11/23 10/12/23 10/12/23 22:59 06:59 14:59 Other: Weight 167.829 kg Sleep Note - Sleep Data ESS Total: 13 - Sleep Note Sleep Note: Temperature: 97.8 F Pulse Rate: 88 Respiratory Rate: 16 Blood Pressure: 142/85 SpO2: 96 Height: 5 ft 7.5 in Weight: 167.829 kg BMI: Neck Circumference: 17.5
[2023-10-12 14:09] VITALS: BP 142/85; PULSE 88; RESP 16; TEMP 97.8
== END ==
LOC: 3 N SLEEP 13:07
PROVIDERS: ATTEND Internal Medicine
DX: G47.33 Obstructive sleep apnea (adult) (pediatric) (principal); E66.01 Morbid (severe) obesity due to excess calories; F17.210 Nicotine dependence, cigarettes, uncomplicated; Z87.09 Personal history of other diseases of the respiratory system; Z86.79 Personal history of other diseases of the circulatory system; Z98.890 Other specified postprocedural states; Z90.89 Acquired absence of other organs; Z90.49 Acquired absence of other specified parts of digestive tract; Z68.43 Body mass index [BMI] 50.0-59.9, adult; Z90.3 Acquired absence of stomach [part of]; Z98.84 Bariatric surgery status; Z88.6 Allergy status to analgesic agent; Z88.5 Allergy status to narcotic agent; Z88.8 Allergy status to other drugs, medicaments and biological substances
CPT/HCPCS: 99211

== ENCOUNTER → 2023-10-26 | Outpatient (CLI) | payer BC ==
--- NOTE | 2023-11-01 12:32 | P.PCN ---
Description of Procedure: Home sleep apnea test 10/26/2023 A home sleep apnea test has been done for confirmation of possible obstructive sleep apnea-hypopnea syndrome. DESCRIPTION OF PROCEDURE: RESULTS: Recording time was 7 hours 49 minutes. Evaluation time was 7 hours 37 minutes. Evaluation time is sufficient for making conclusion about results of the test. Raw data of sleep recording has been reviewed and is adequate. Respiratory channel showed 2 apneas and 64 hypopneas. Apnea-hypopnea index was 8.7 per hour. Pulse rate in the range between minimum 40, maximum 106, average 60 by computer calculation. Lowest desaturation was 79%. IMPRESSION: 1. Obstructive Sleep Apnea Hypopnea Syndrome in mild range with symptoms of excessive daytime sleepiness, [place] Sleepiness Scale increased to 13. 2. History of hypertension. Please see other impressions from consultation. PLAN: 1. The patient will be started on auto-PAP treatment for correction of respiratory abnormallities during sleep. 2. I will see patient for follow up visit to discuss results of the test, evaluate clinical response on treatment with PAP therapy and make any necessary adjustments related to mask fitting, pressure, and humidification. 3. Watching and losing weight. 4. Sleep hygiene with regular time in bed for at least 8 hours. 5. No driving if feeling any sleepiness. Thank you very much for allowing me to participate in the management of your patient. Sincerely, Carlos Butler MD, PhD, FAASM Diplomat of [place] [employer] of [employer] Specialties Sleep Medicine Board of [place] Board of Internal Medicine Merchandise Supervisor of [facility] [place]
== END | disposition home or self-care (01) ==
LOC: 3 N SLEEP 16:49
PROVIDERS: ATTEND Internal Medicine
DX: G47.33 Obstructive sleep apnea (adult) (pediatric) (principal); F17.200 Nicotine dependence, unspecified, uncomplicated; Z88.5 Allergy status to narcotic agent; Z88.8 Allergy status to other drugs, medicaments and biological substances; Z88.6 Allergy status to analgesic agent; Z86.79 Personal history of other diseases of the circulatory system

== ENCOUNTER → 2024-02-01 | Outpatient (CLI) | payer BC ==
--- NOTE | 2024-02-01 11:36 | P.PROGSL ---
Subjective DATE: 02/01/2024 FOLLOW UP VISIT. Patient with obstructive sleep apnea hypopnea syndrome return to sleep center for follow-up visit. Recently patient had sleep study which documented obstructive sleep apnea hypopnea syndrome. Patient was initiated on PAP therapy and today is first visit after treatment was started. Patient was able to use PAP equipment every night for the whole night. The patient does not have significant problems with the mask, PAP pressure and humidification. Ord sleepiness scale is 5, which is normal. I checked information from PAP unit. PAP unit pressure 5-14, average 12.8 cm H2O. Usage is 100 percent and 77% for more then 4 hours, average 5.15 hours per night. Leak is 17.1 l/m, which is in acceptable range. Apnea Hypopnea Index is 0.3, which is normal. MEDICATIONS: Please see below During physical exam: GENERAL: A pleasant patient without any distress. VITAL SIGNS: Please see below, weight 364.8 pounds. HEENT: PERRLA, EOMI.low position of soft palate, Mallapati 4 . NECK: Supple. No JVD. LUNGS: Clear to percussion and to auscultation. Good air exchange. No wheezing or rhonchi. HEART: S1, S2 regular. ABDOMEN: Soft and nontender.[] EXTREMITIES: No clubbing or cyanosis. HAND ORNAMENT MAKER: Awake, alert, and oriented x3. No focal deficit. Impressions: 1. Obstructive sleep apnea-hypopnea syndrome. Patient demonstrated great compliance with treatment, benefiting from treatment. 2. Obesity, BMI in the range of 57. 3. History of hypertension. 4. Status post tonsillectomy and adenoidectomy. 5. Status post gastric bypass surgery in 2017. 6. Status post cholecystectomy. 7. Status post abdominal hernia repair. Plan: 1. Continue using PAP equipment every night for the whole night. 2. To change air filter at least 1-2 times per month. 3. PAP unit should stay lower then position of the head. 4. Advised patient to remove all remaining water from humidifier canister daily and make it dry after each usage. Refill canister with fresh distilled water before each usage. 5. Sleep hygiene with regular time in bed for at least 8 hours. 6. Precautions related to driving. No driving if feel any sleepiness. 7. I will maintain prescription for PAP supplies including mask, tube, filters. 8. Follow up visit in 6 months or earlier if patient has any problems. 9. Watching and losing weight. Thank you very much for allowing me to participate in the management of your patient. Carlos Butler MD, PhD, FAASM. Diplomat of [place] [employer], Sleep Medicine Board by [place] [employer] Film Flat Inspector of [facility] [place] Objective - Vital Signs Vital Signs: Intake & Output 01/31/24 02/01/24 02/01/24 18:59 06:59 18:59 Weight 165.334 kg Home Medications: Home Medications Medication Instructions Recorded Confirmed Type Acetaminophen Tab [Tylenol] 1,000 mg PO Q6HR PRN 03/03/17 07/05/21 History Acetaminophen-Codeine 300-30mg 1 tab PO Q6H PRN 3 Days #12 tablet 08/10/23 Rx [Tylenol w/codeine #3] Cyclobenzaprine [Flexeril] 5 mg PO TID PRN #15 tablet 08/10/23 Rx Lidocaine 5% Patch [Lidoderm 5% 1 patch TOPICAL DAILY #30 patch 08/10/23 Rx Patch]
== END ==
LOC: 3 N SLEEP 10:38
PROVIDERS: ATTEND Internal Medicine
CPT/HCPCS: 99212

== ENCOUNTER → 2024-08-23 | Outpatient (CLI) | payer BC ==
--- NOTE | 2024-08-26 08:49 | MR ---
EXAMINATION TYPE: MR knee LT wo con DATE OF EXAM: 08/23/2024 5:06 PM COMPARISON: Plain film contralateral side to 07/05/2021. CLINICAL INDICATION: Male, 39 years old with history of M23.92 UNSPECIFIED INTERNAL DERANGEMENT OF LE FT KN; PHH, Left knee pain for 1 year, history of trip and fall. TECHNIQUE: Multi planar, multi sequence imaging was performed of the knee including: Triplane proton density fat-saturated images and T1-weighted imaging. No Gadolinium was given. IV Contrast: mL (none if empty) FINDINGS: Medial meniscus: The meniscal body is displaced slightly into the bladder. Medial femorotibial cartilage: Cartilage thinning without evidence for full-thickness defect. Medial collateral ligament: Intact Lateral meniscus: Intact Lateral femorotibial cartilage: Grade-I chondromalacia. Lateral collateral ligament complex: Intact Patellofemoral alignment: Normal Patellofemoral cartilage: Intact Extensor mechanism: Intact. Joint/bursal fluid: Small joint effusion present. Muscles/tendons: The patellar tendon, quadriceps tendon, IT band, pes anserinus tendons, semimembrano evaristo tendon, popliteus tendon, and biceps femoris tendon are all within normal limits. Bone marrow: Normal. Anterior cruciate ligament: Intact. Posterior cruciate ligament: Intact. Soft tissues: Jones's cyst measuring up to 7.0 x 2.4 cm. Tortuous vessels seen. In the posterior thig h. IMPRESSION: Motion limited exam. 1. No definitive evidence to suggest ligamentous injury. 2. Moderate chondromalacia of the medial femoral condyle. The medial meniscal body is slightly displ aced into the gutter. 3. Moderate sized Jones's cyst. [facility], , 08/26/2024 8:47 AM
== END | disposition home or self-care (01) ==
LOC: RADMRIMAIN 15:48
PROVIDERS: ATTEND Family Medicine
DX: M94.262 Chondromalacia, left knee (principal); M23.92 Unspecified internal derangement of left knee; M71.22 Synovial cyst of popliteal space [Baker], left knee; M25.462 Effusion, left knee